=== PATIENT | male | born 1945 | race Caucasian/White ===

== ENCOUNTER 2025-10-02 12:00 | Inpatient (IN) | payer MEDICARE, BC, SELFPAY ==
--- OUTSIDE RECORDS SUMMARY | 2025-09-30 15:37 | XMS_ITS | Encounter Summary ---
Author Organization [facility] Address [address] [place] [phone] Phone Care Team Providers Care Race Steward Name Role Phone PaceObdulia rojo Minda CLINTON Primary Care Provider Reason for Visit * Reason Comments Paranoid Encounter Details Date Type Department Care Team (Late st Contact Info) Description 09/30/2025 3:37 PM EST - 09/30/2025 7:49 PM EST Emergency [facility] [address] [place] [address] Mayo Olvera DO [address] [place] [address] [email or web address] Discharge Disposition: Home or Self Care Social History Tobacco Use Types Packs/Day Years Used Date Smoking Tobacco: Never Smokeless Tobacco: Never Alcohol Use Standard Drinks/Week Comments Not Currently 1 (1 standard drink = 0.6 oz pur e alcohol) Education Answer Date Recorded Are you interested in more education? Not on kalyah e 02/27/2023 Are you concerned about learning? Not on file 02/27/2023 No 02/27/2023 No 02/27/2023 Digital Access Answer Date Recorded No 03/28/2023 No 03/28/2023 Reliable internet access at home? Not on file 03/28/2023 Device with a working camera? Not on file Intimate Partner Violence Answer Date R ecorded Are you denied basic needs s uch as food, clothing, or medical care? Deferred 09/30/2025 In the past 12 months have y ou been in a relationship with a person who hurts, threatens, or tries to control you? Deferred 09/30/2025 Are you denied basic needs s uch as food, clothing, or medical care? Deferred 09/30/2025 In the past 12 months have y ou been in a relationship with a person who hurts, threatens, or tries to control you? Deferred 09/30/2025 Sex and Gender Information Value Date Recorded Sex Assigned at Male 02/03/2018 6:47 AM EDT Legal Sex Male 10:06 PM EDT Gender Identity Male 02/03/2018 6:47 AM EDT Sexual Orientation Straight 02/03/2018 6: 47 AM EDT documented as of this encounter Last Filed Vital Signs Vital Sign Reading Time Taken Comments Blood Pressure 143/68 09/30/2025 3:55 PM EST Pulse 70 09/30/2025 7:27 PM EST Temperature 37.2 C (99 F) 09/30/2025 7:27 PM EST Respiratory Rate 18 09/30/2025 7:27 PM EST Oxygen Saturation 100% 09/30/2025 7:27 PM EST Inhaled Oxygen Concentration - - Weight 78.9 kg (174 lb) 09/30/2025 3:55 PM EST Height 175.9 cm (5' 9.25 ) 09/30/2025 3:55 PM ES T Body Mass Index 25.51 09/30/2025 3:55 PM EST documented in this encounter Functional Status * Calculated C-SSRS Risk Score (Lifetime/Recent) Answer Date of Assessment Author No Risk Indicated 09/30/2025 3:54 PM EST Maris Kasper RN * [place] Suicide Severity Rating Scale (Screener/Recent Self-Report) Question Answer Date of Assessment Author 1. Wish to be (Past 1 Month) No 025 3:54 PM EST Maris Kasper, LAURYN 2. Non-Specific Active Suici henry Thoughts (Past 1 Month) No 09/30/2025 3:54 PM EST Maris Kasper, LAURYN 6. Suicidal Behavior (Lifetime) No 3:54 PM EST Maris Kasper, LAURYN documented as of this encounter Discharge Instructions * Discharge Instructions* Mayo Olvera DO - 09/30/2025 7:25 PM EST As discussed during your visit with OFFSET ASSISTANT PRESS OPERATOR they have provided information regarding [facility] services that may be able to provide some assistance. They will also continue to follow-up with you over the next few days. I strongly consider you to discuss with your primary care team as well as your psychologist whether further treatment is appropriate. As always return for any further concerning symptoms particularly those of hallucinations or worsening paranoia. * Attachments The following attachments cannot be sent through Care Everywhere. * Depression: Treatment (Niuean) documented in this encounter Medications at Time of Discharge lisinopril (PRINIVIL,ZESTRIL ) 20 MG tablet Take 20 mg by mouth daily. metoprolol succinate (TOPROL-XL) 25 MG 24 hr tablet Take 1 tablet by mouth every morning. 09/12/2025 mirtazapine (REMERON) 15 MG tablet Take 15 mg by mouth nightly at bedtime. 08/19/2025 sertraline (ZOLOFT) 100 MG tablet Take 1 tablet by mouth every morning. 09/03/2025 amLODIPine (NORVASC) 5 MG tablet Take 1 tablet by mouth every morning. 12/07/2023 ascorbate calcium (VITAMIN C ORAL) Take by mouth. aspirin 81 MG EC tablet Take 81 mg by mouth daily. hydroCHLOROthiazi de (HYDRODIURIL) 25 MG tablet Take 25 mg by mouth daily. pravastatin (PRAVACHOL) 20 MG tablet Take 20 mg by mouth daily. pseudoephedrine (SUDAFED) 30 MG tablet Take 1 tablet (30 mg total) by mouth every 6 (six) hours as needed for congestion. 30 tablet 05/02/2021 sodium chloride (OCEAN) 0.65 % nasal spray 1 spray by Nasal route as needed for congestion. 15 mL 12 05/02/2021 UBIDECARENONE (COQ-10 ORAL) Take by mouth daily. zinc sulfate 50 mg zinc (220 mg) Tab Take 220 mg by mouth daily. documented as of this encounter Consult Notes * Paulina Weber - 09/30/2025 7:45 PM ESTAssociated Order(s): IP CONSULT TO OFFSET ASSISTANT PRESS OPERATOR SERVICE [facility] OFFSET ASSISTANT PRESS OPERATOR SERVICE INITIAL NOTE REQUESTING PHYSICIAN: Mayo Olvera DO PRIMARY CARE PHYSICIAN: Obdulia Pace DO Chief Complaint: Chief Complaint Complaint Comment Paranoid [[id number]] has a past medical history of Cataract, Colon polyp, Depressive disorder (2018), Diverticular disease, Hypercholesteremia, Hypertensive disorder, and Wears glasses. reports that he has never smoked. He has never used smokeless tobacco. He reports that he does not currently use alcohol after a past usage of about 1.0 standard drink of alcohol per week. He reportsthat he does not use drugs. is allergic to statin [atorvastatin]. Medical/Social Concerns: Does this client: Use any mobility devices such as wheelchair, walker, crutch, cane? If yes, describe: N/A Need assistance with feeding, dressing, bathing or other hygiene? If yes, describe N/A Require any durable medical equipment such as CPAP, oxygen, insulin pump, etc? If yes, describe N/A Have any communicable diseases such as MRSA, COVID, Flu, Hepatitis, etc? If yes, describe N/A Current Medications Medication Sig lisinopril (PRINIVIL,ZESTRIL) 20 MG tablet 20 mg, Oral, Daily metoprolol succinate (TOPROL-XL) 25 MG 24 hr tablet 1 tablet, Every morning mirtazapine (REMERON) 15 MG tablet 15 mg, Nightly sertraline (ZOLOFT) 100 MG tablet 1 tablet, Every morning amLODIPine (NORVASC) 5 MG tablet 1 tablet, Every morning Patient not taking: Reported on 09/30/2025 ascorbate calcium (VITAMIN C ORAL) Take by mouth. Patient not taking: Reported on 09/30/2025 aspirin 81 MG EC tablet 81 mg, Daily Patient not taking: Reported on 02/04/2024 hydroCHLOROthiazide (HYDRODIURIL) 25 MG tablet 25 mg, Daily Patient not taking: Reported on 09/30/2025 pravastatin (PRAVACHOL) 20 MG tablet 20 mg, Oral, Daily pseudoephedrine (SUDAFED) 30 MG tablet 30 mg, Oral, Every 6 hours PRN Patient not taking: Reported on 02/04/2024 sodium chloride (OCEAN) 0.65 % nasal spray 1 spray, Nasal, As needed Patient not taking: Reported on 09/30/2025 UBIDECARENONE (COQ-10 ORAL) Daily Patient not taking: Reported on 09/30/2025 zinc sulfate 50 mg zinc (220 mg) Tab 220 mg, Daily Patient not taking: Reported on 09/30/2025 Diagnoses: 300.02/F41.1 Generalized Anxiety Disorder 296.30/F33.9 Major Depressive Disorder, Recurrent Episode, Unspecified Referral Source: /Police Is the client on a Section 12? If yes, by whom: No Presenting Concerns: Geremias was BIBA to [facility] ED after his called [place] Police due to his paranoia and delusional thinking. At the time of the assessment ct reports vague SI with no plan or intent. He reports potential auditory hallucinations of voices that are non commanding in nature. Ct reports current anxiety and depression symptoms that include racing thoughts, low energy, and low motivation. He was calm and cooperative while speaking with tw. Precipitating Factors: Geremias reports that over the past 3 months he has experienced more frequent memory impairments that arecontributing to his current depression and anxiety. He states that his , Yuko, has taken over much of what he used to do in regards to monitoring their finances and responding to mail and bills due. He states he is frequently frustrated and agitated that he cannot perform the tasks he used to do regularly and has difficulties finding his words during conversations. He states that he has experienced fleeting SI in relation to his recent memory/cognitive decline. Geremias expresses his belief that due to paperwork not getting taken care of and deadlines being missed, police will shoot him and his . He repeatedly stated that his beliefs are silly and not rational but can't stop perseverating on these feelings. Geremias states that today he firmly believed that there was someone in his house and that if he used a specific bathroom the person would shoot him. He states he tried to not usethe bathroom because of this but eventually went in. He reports while he was in the bathroom he heard unfamiliar voices but could not decipher what they were saying. Geremias disclosed his beliefs to Yuko today which lead to her calling [place] Police. Adams reports that geremias has been struggling with his memory since July of 2025 which has been causing him to isolate more at home. She states that geremias believes that their health insurance will on November 02 2025 and that their current plan will not be rolled over. Despite their son reaching out to insurance and confirming that they will still have their same health insurance in the new year, ct is addiment they will still lose coverage. Yuko states this is a major source of distress for geremias as he expresses his anxiety about this daily. She reports that when police responded to thehome today they took possesion of the 3 fire arms that geremias owns. Social/family environment, day structure, supports: Geremias and his , Yuko, reside in their home in [place]. 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 Their son, Grant, is a colonel in in [employer] and resides in [place]. Ct speaks to his son regularly. He has a PCP and psychiatric prescriber he sees regularly. Trauma history and how it affects current presentation: None reported MH treatment: - Current providers: P[place]- [place] Kaci Pace [place] Prescriber- Dr. Hair Tierney ([facility] - Treatment history: None reported - Most Recent hospitalization: None reported Substance Use: - Current use: None reported - Historical use: None reported - Treatment history: None reported Mental Status Exam: - Age, race, gender, pronouns: Geremias is a 80 year old, , cisgender, Niuean-speaking male. - Appearance/Clothing/Hygiene: Appeared well groomed in appropriate attire - Build/Posture/Psychomotor: Sat upright in hx bed. Appeared to fidget with his fingers. - Mood/Behavior: Mood appeared nervous and dejected - Eye contact: Intermittent - Speech: Coherent/clear - Sleep/Appetite: Reports some sleep diminishments due to anxiety. Reports more frequent snacking. - Depression/Soco: Reports current depression with symptoms including low motivation/energy and isolation - Anxiety: Reports anxiety due to his recent memory impairments and difficulties performing his typical tasks such as tending to mail and balancing their checks. - Psychosis: Reports some auditory hallucinations of voices murmuring. - Thought process: Periodically illogical. Patterns of catastrophic thinking. - Future orientation: Shows future orientation related to his son and being with his - Judgement/Insight/Impulse Control: Geremias shows periodic impairments in insight and judgment as he does not feel that mental health support/services would be helpful and is not receptive to treatment recommendations. Impulse control appears adequate. Risk Assessment: - Suicidal ideation: Reports vague and fleeting SI with no plan or intent. - Violent/Homicidal Ideation: Denied - Self-Harm ideation: Denied - History of suicide attempts, self- harm, assaultive behaviors: Denied - Protective factors: Ct has strong social supports that include his , son, and brother as wellas service providers. He shows some future orientation related to his family. - Risk factors: Reports periodic SI with no plan/intent. Recent memory/cognitive decline. Periodic impairments in insight and judgement as he reports his beliefs that due to missed deadlines police will shoot him and his . However, ct acknowledges that these are not rational beliefs. He denies t reatment recommendations at this time. - Level of risk: Low Disposition: - Recommended level of care: Return to providers. Information on [facility] services to be emailed to his . - Justification: Ct declines any further treatment for his mental health. - Consulted with: Farida Sorensen, LADC-1, Dr. Mayo Olvera at [facility] - Post-intervention plan: OFFSET ASSISTANT PRESS OPERATOR follow up Paulina Weber, CORRINA Angeldarrel underwent a crisis evaluation with assessment, stabilization, and disposition planning. This included a comprehensive psychiatric history, mental status exam, diagnostic evaluation, assessment of substance use, formulation and treatment plan, that was as minimally restrictive as possible on 09/30/25. Date of :1945 Gender Identity:Male [address]: [address] [place] [address] Preferred Payor/Insurance: MEDICARE [facility] documented in this encounter ED Notes * Fina Santiago RN - 09/30/2025 7:48 PM EST ED Discharge Nursing Note Pt and verbalize understanding and agreement of discharge instructions, both pt and stateall questions have been answered, pt ambulates with steady gait * Maris Kasper RN - 09/30/2025 3:46 PM EST Pt arrives by ambulance after spouse concerned for recent behavior. +perseverating about toileting and the bathroom. Thoughts of bathroom blowing up. Also long periods of being withdrawn and staring out window. Speech clear. Well groomed. Engaging in conversation--however answers are indirect and without details. * Mayo Olvera, DO - 09/30/2025 3:34 PM EST Chief Complaint Chief Complaint Patient presents with Paranoid History of Present Illness The patient, Dimitry Yost,is a 80 y.o. male who presents for evaluation of Paranoid 80-year-old male. History is quite limited to obtain as the patient is quite tangential with his thought process and quite vague. Per EMS the patient has been having periods of being drawn, not engaging in conversation is much as usual, experiencing prolonged periods of stare at the window. Agus has began to experience paranoia. Concerned that the bathroom is going to explode. The was the one who reportedly called EMS. At this time patient states that he has been having difficulty states that he is on medication. He states that he is only allowed medication but is concerned that it may not be working. He states that he has not been opening his meal. He was initially concerned that bills were piling up and that they were going to come after him and harm him to obtain the back owed money. Patient denies any acute medical complaints denies any change in diet. Denies any recent infectious symptoms. Unless otherwise specified, I have reviewed and agree with the triage and nursing notes. ROS A ten point review of systems was negative except what was noted in the HPI. Review of Systems Past Medical History Past Medical History: Diagnosis Date Cataract Colon polyp Depressive disorder 2018 Diverticular disease Hypercholesteremia Hypertensive disorder Wears glasses Past Surgical History Past Surgical History: Procedure Laterality Date CATARACT EXTRACTION, BILATERAL 2018 COLONOSCOPY COLONOSCOPY N/A 02/05/2024 Performed by Bijan Mcconnell MD at [facility] ENDOSCOPY COLONOSCOPY N/A 12/24/2018 Performed by Bijan Mcconnell MD at [facility] ENDOSCOPY COLONOSCOPY W/ POLYPECTOMY 2012 [place] EXTRACTION FULL BONY IMPACTED Right 05/02/2021 Performed by Taurus Galicia DDS, MD at [facility] OR EYE SURGERY MENISCECTOMY OPEN BIOPSY DEEP BONE Right 05/02/2021 Performed by Taurus Galicia DDS, MD at [facility] OR STAPEDECTOMY Left Home Medications Prior to Admission medications Medication Sig lisinopril (PRINIVIL,ZESTRIL) 20 MG tablet 20 mg, Oral, Daily metoprolol succinate (TOPROL-XL) 25 MG 24 hr tablet 1 tablet, Every morning mirtazapine (REMERON) 15 MG tablet 15 mg, Nightly sertraline (ZOLOFT) 100 MG tablet 1 tablet, Every morning amLODIPine (NORVASC) 5 MG tablet 1 tablet, Every morning Patient not taking: Reported on 09/30/2025 ascorbate calcium (VITAMIN C ORAL) Take by mouth. Patient not taking: Reported on 09/30/2025 aspirin 81 MG EC tablet 81 mg, Daily Patient not taking: Reported on 02/04/2024 hydroCHLOROthiazide (HYDRODIURIL) 25 MG tablet 25 mg, Daily Patient not taking: Reported on 09/30/2025 pravastatin (PRAVACHOL) 20 MG tablet 20 mg, Oral, Daily pseudoephedrine (SUDAFED) 30 MG tablet 30 mg, Oral, Every 6 hours PRN Patient not taking: Reported on 02/04/2024 sodium chloride (OCEAN) 0.65 % nasal spray 1 spray, Nasal, As needed Patient not taking: Reported on 09/30/2025 UBIDECARENONE (COQ-10 ORAL) Daily Patient not taking: Reported on 09/30/2025 zinc sulfate 50 mg zinc (220 mg) Tab 220 mg, Daily Patient not taking: Reported on 09/30/2025 Allergies Allergies Allergen Reactions Statin [Atorvastatin] Muscle weakness Social and Family History Social History Tobacco Use Smoking status: Never Smokeless tobacco: Never Substance Use Topics Alcohol use: Not Currently Alcohol/week: 1.0 standard drink of alcohol Types: 1 Standard drinks or equivalent per week Social History Substance and Sexual Activity Drug Use No No family history on file. Physical Exam Vital Signs: ED Triage Vitals Encounter Vitals Group BP Girls Systolic BP Percentile Girls Diastolic BP Percentile Boys Systolic BP Percentile Boys Diastolic BP Percentile Pulse Resp Temp Temp src SpO2 Weight Height Head Circumference Peak Flow Pain Score Pain Loc Pain Education Exclude from Growth Chart Physical Exam General: Well Nourished, Well Developed HENT: Normocephalic, Atraumatic Eyes: PERRL, EOM Intact Cardiovascular: Normal Rate, Normal Rhythm, Good Distal Perfusion Pulmonary: Normal Effort, Breath Sounds Normal Abdominal: Soft, Non-tender, Non-distended MSK: Normal ROM Neurologic Screening Exam: Grossly non-focal. Vision is grossly intact to both eyes, EOM grossly intact, PERRL. Hearing is grossly intact to both ears. No olfactory deficits are noted. No obvious facial sensory deficits are noted. Motor function of the face is equal and symmetric. Shoulder shrug isintact. Tongue is in the midline. Psych: Alert, Awake, circumferentially answering questions, vague Laboratory Testing No results found for this visit on 09/30/25. Radiology Testing No orders to display MDM MDM Patient presents as above. At this time patient appears in no acute distress. Vital signs are without significant abnormality. He endorses no acute medical complaints. Patient endorsing paranoia and seemingly symptoms of depression. Do see on medication list that he is manage on mirtazapine and Zoloft. At this time we will do not see medical etiology for psychiatric concerns. Discussed obtaining screen laboratory studies however patient is concerned regarding financial concerns. Patient had labs he says within the last few weeks by his primary care doctor will attempt to access these as he isnot consenting to lab work done today which [place] is likely of low yield. Feel as though more info rmation will be obtained when his Yuko is present. Per EMS she was and route. ED Course as of 09/30/251925 Sat Sep 30, 2025 164 Case was discussed in depth with OFFSET ASSISTANT PRESS OPERATOR his spouse. She grazes multiple episodes of delusional behavior assuming that multiple objects are broken. States that he has been having visual hallucinations. Had a similar episode 7 years ago following cataract surgery. She reports a recent OMFS surgery.At this time after discussion agreed on OFFSET ASSISTANT PRESS OPERATOR consultation [JS] 1923 Patient was seen and evaluated by OFFSET ASSISTANT PRESS OPERATOR. At this time they are agreeable that the patient is showing concerning findings for depression as well as possibility of dementia. Patient was offered Geripsychiatric services however has declined them. OFFSET ASSISTANT PRESS OPERATOR feels and I am agreeable that the patient does not meet criteria for section 12. They will connect the patient to [facility] services. They will continue to follow-up over the next 3 days. Patient to be discharged. [JS] ED Course User Index [JS] Mayo Olvera DO Clinical Impressions as of 09/30/251925 Paranoia Depression, unspecified depression type Clinical Impression Diagnosis Description Comment Final diagnoses Paranoia Paranoia -- Depression, unspecified depression type Depression, unspecified depression type -- Disposition: Home Mayo Olvera DO 09/30/251925 documented in this encounter Plan of Treatment Upcoming Encounters Date Type Department Care Team (Late st Contact Info) Description 10/13/2025 7:15 AM EST Office Visit [facility] [address] Floor, [address] [place] [address] Allan Dowell DO [address] [place] [id number] [email or web address] documented as of this encounter Visit Diagnoses Diagnosis Paranoia- Primary Delusional disorder Depression, unspecified depression type documented in this encounter Care Teams Race Steward Relationship Specialty Start Date End Date Obdulia Pace DO [address] [place] [address] [place] [phone] PCP - General Family Medicine 09/30/25 documented as of this encounter Additional Source Comments The information contained in this document represents components of the legal health record. It is not the complete legal health record.[facility]
--- NOTE | ~2025-10-02 | XR_ITS ---
EXAMINATION: XR CHEST CLINICAL INFORMATION: pre MRI COMPARISON: None available. TECHNIQUE: PA view of the chest was obtained. FINDINGS: No metallic foreign body. Chronic interstitial lung disease. Vertically oriented and parapelvic to the spine Opacity. Cardiomediastinal silhouette size is normal. Multilevel spondylosis. XR/XR chest 1V IMPRESSION: No metallic foreign body. EXAMINATION: XR ABDOMEN KUB CLINICAL INDICATION: pre MRI COMPARISON: None available. TECHNIQUE: AP view of the abdomen. FINDINGS: No metallic foreign body. No intestinal bowel obstruction. Multilevel thoracolumbar spondylosis. S-shaped curvature with a levoconvex curvature in the lower lumbar spine. Degenerative changes in the coxofemoral joints. IMPRESSION: No metallic foreign body. Electronically signed by: Patrick Fulton MD 10/10/2025 01:55 PM [facility]
--- NOTE | ~2025-10-02 | XR_ITS ---
EXAMINATION: XR CHEST CLINICAL INFORMATION: pre MRI COMPARISON: None available. TECHNIQUE: PA view of the chest was obtained. FINDINGS: No metallic foreign body. Chronic interstitial lung disease. Vertically oriented and parapelvic to the spine Opacity. Cardiomediastinal silhouette size is normal. Multilevel spondylosis. XR/XR abdomen 1V IMPRESSION: No metallic foreign body. EXAMINATION: XR ABDOMEN KUB CLINICAL INDICATION: pre MRI COMPARISON: None available. TECHNIQUE: AP view of the abdomen. FINDINGS: No metallic foreign body. No intestinal bowel obstruction. Multilevel thoracolumbar spondylosis. S-shaped curvature with a levoconvex curvature in the lower lumbar spine. Degenerative changes in the coxofemoral joints. IMPRESSION: No metallic foreign body. Electronically signed by: Patrick Fulton MD 10/10/2025 01:55 PM [facility]
--- NOTE | ~2025-10-02 | CT_ITS ---
EXAMINATION: CT HEAD WITHOUT CONTRAST CLINICAL INFORMATION: Mental status changes. COMPARISON: None available. TECHNIQUE: Contiguous axial imaging was performed from the skull base to vertex without intravenous administration of contrast. This CT examination was performed using dose optimization techniques as appropriate, variously including the following: *Automated exposure control *Adjustment of mA and/or kV according to patient size (this includes techniques or standardized protocols for targeted exams where dose is matched to indication/reason for exam; i.e. extremities or head) *Use of iterative reconstruction technique FINDINGS: There is no evidence of intracranial hemorrhage or extra-axial fluid collection. There is no mass effect, or edema. No CT evidence of acute territorial infarct. Ventricles, sulci, and cisterns are normal in size and configuration for patient age. No hydrocephalus. No midline shift. Negative hyperdense MCA sign. Negative insular ribbon sign. Patchy periventricular and deep white matter hypoattenuation is consistent with mild to moderate small vessel ischemic changes. Normal pituitary. Mild atheromatous calcification of the bilateral carotid siphons and V4 segments vertebral arteries bilaterally. Globes and orbital contents image normally. There are bilateral lens replacements. No extracranial soft tissue abnormalities. Likely old traumatic changes to the posteroinferior right maxillary sinus. There is partial opacification of the right maxillary sinus with a small air-fluid level present. The mastoid air cells, and tympanic cavities are normally aerated. No suspicious bony abnormalities. There are no acute fractures evident. CT/CT head/brain wo IV con IMPRESSION: 1. No acute intracranial abnormality. 2. Partial opacification of the right maxillary sinus with likely old post traumatic changes to the posteroinferior sinus haider. Electronically signed by: Neptali Purcell MD 10/02/2025 02:05 PM [facility]
--- NOTE | ~2025-10-02 | MR_ITS ---
MR BRAIN WITHOUT CONTRAST, WITH NEURO-QUANTITATIVE HISTORY: 80-year-old male. Progressive decrease in functioning dependently. TECHNIQUE: MRI of the brain was performed without contrast using standard sequences in multiple planes. Examination performed on a 1.5 Deb Siemens high-field unit. Neuro-quantitative analysis was also performed utilizing a separate workstation. COMPARISON: No prior MRI. CT head dated 10/02/2025. FINDINGS: There is no diffusion restriction. There is no intracranial hemorrhage, acute infarction, mass effect, or edema. No extra-axial fluid collection. Ventricles, sulci, and cisterns are diffusely somewhat prominent, in keeping with mildly age advanced cerebral and cerebellar volume loss. See below. No shift of midline. 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 No abnormal hemosiderin deposition is identified. There are a scattered punctate and minimally confluent foci of white matter T2 hyperintensity in the periventricular, subcortical, and hemispheric deep white matter, and central navdeep. These foci are nonspecific but statistically relate to small vessel ischemic changes. There are old tiny lacunar type infarcts in the bilateral subinsular regions and anterior gangliocapsular regions. Midline structures appear normally formed. 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 The pituitary gland appears normal. Posterior fossa structures appear normal. Cerebellar tonsils are appropriately located. Major flow voids are preserved within the skull base. The globes and orbital contents demonstrate bilateral lens replacements. Neuro-quantitative Analysis: The hippocampi volume is 2% of the normative age-matched percentile. The Hippocampal Occupancy Score Is 2. The entorhinal cortex volume Is 85% of the normative age-matched percentile. The temporal cortex is 7% of the normative age-matched percentile. The parietal cortex is 79% of the normative age-matched percentile. The frontal cortex is 32% of the normative age-matched percentile. The occipital cortex is 41% of the normative age matched percentile. Please refer to the full neuro-quantitative analysis worksheets for further details. Paranasal sinuses demonstrate moderate mucosal thickening with a small amount of fluid in the right maxillary sinus, and mild mucosal thickening throughout the anterior ethmoid sinuses. Remainder of the paranasal sinuses are normally pneumatized. The mastoids and tympanic cavities are normally aerated. Extracranial soft tissues demonstrate no abnormalities. No suspicious bone marrow changes are evident. Atlantoaxial joint demonstrates mild to moderate degenerative changes. MR/MR brain wo con w neuroquant IMPRESSION: 1. No evidence of intracranial hemorrhage, acute infarction, mass effect, or edema. 2. Mild to moderate white matter changes of small vessel ischemia. 3. 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 4. Moderate right maxillary sinus disease. 5. Neuro-quantitative analysis as described above. Please refer to the full neuro-quantitative analysis worksheets attached to this examination for further details. Electronically signed by: Neptali Purcell MD 10/11/2025 03:24 PM [facility]
[2025-10-02 12:14] VITALS: BP 142/76; PULSE 78; O2SAT 97; BMI 29.8
[2025-10-02 12:45] VITALS: BP 150/67; PULSE 80; RESP 14; TEMP 36.8; O2SAT 98
--- NOTE | 2025-10-02 12:49 | PC.NURSE ---
Dimitry presents to the emergency department today from home on a section 12 for reported delusions that the gill net stringer are coming to shoot him, he is having difficulty articulating thoughts, he is not sleeping, he is restless and is reporting increased depression. According to the patient he has been increasingly forgetful and has been having trouble doing his day to day activities. He reports difficulty opening items, sleeping and completing daily tasks like shaving. he endorses increased depression which has been contributing to these difficulties. Pt endorses not wanting to live due to the stuff going on in life . Pt reports you wouldn't want to live if you experienced what I am . Pt denies any plans to harm himself. Pt is calm and cooperative, speech is slow but clear, although patient does seem to have a hard time articulating what he would like to say. Pt is alert and oriented to self, location, situation and date
[2025-10-02 12:56] LABS: MANUAL DIFF FLAG NO
--- NOTE | 2025-10-02 12:58 | MHC.CARE ---
Call from [facility] Clinician, Cami Hauser, patient has been evaluated in the community with disposition for inpatient level of care.
[2025-10-02 12:59] LABS: Hematocrit 36.7 % (42.0-52.0); Hemoglobin 12.6 g/dl (14.0-18.0); Imm Gran Abs Auto 0.17 X10*3/uL (0.00-0.03); Imm Gran Pct Auto 2.2 % (0.0-0.4); Lymphocytes Absolute Auto 2.0 X10*3/uL (1.2-4.9); Mean Corpuscular HGB Conc 34.3 g/dl (31.0-36.0); Mean Corpuscular Hemoglobin 33.0 pg (27.0-33.0); Mean Corpuscular Volume 96.1 fL (80.0-98.0); NRBC Abs Auto 0.000 X10*3/uL (0.0-0.012); NRBC Pct Auto 0.0 /100WBC (0.0-0.2); Platelet Count 195 X10*3/uL (160-400); Red Blood Count 3.82 X10*6/uL (4.60-5.80); White Blood Count 7.8 X10*3/uL (4.8-10.8)
--- NOTE | 2025-10-02 13:41 | ED_ITS ---
HPI - Psych General Chief Complaint: Psychiatric Symptoms Stated Complaint: SEC 12, SI, CALM/COOP Time Seen by Provider: 10/02/25 13:26 Source: patient and EMS Mode of arrival: EMS Limitations: other (Poor historian) History of Present Illness ED Provider: LACIE POLANCO Narrative: 80-year-old male with past medical history of hypertension, sleep disturbances, depression, BPH who lives at home with his . He comes in on a section 12 after what he reports as 6 months of escalating symptoms of depression, poor sleep, racing thoughts, and unsure if things are really happening. He states he does not want to live like this anymore. He does not have any formal diagnosis of dementia. He is unsure what medications he is on. He states he has never gone to an inpatient psychiatric unit for depression. He states a psychiatric social worker supervisor got involved and all these things happened and now he is here but he is not sure why. He did report that he thought the police were coming to shoot him. MD complaint: feels depressed Onset (ago): month(s) Duration: getting worse History of same: Yes Relieving factors: none Exacerbating factors: other Context: significant life stressor Associated psychiatric symptoms: depression and suicidal ideation Associated symptoms: denies other symptoms Treatments prior to arrival: placed on mental health hold If self harm: admits thoughts of self harm Related Data Home Medications ?Medication ?Instructions ?Recorded ?Confirmed cyanocobalamin (vitamin B-12) 1,000 mcg sublingual TITUS LY 10/02/25 10/02/25 1,000 mcg sublingual tablet lisinopril 20 mg tablet 20 mg PO DAILY 10/02/2511/26 metoprolol succinate 25 mg 25 mg PO DAILY 10/02/2511/26 tablet,extended release 24 hr mirtazapine 15 mg tablet 15 mg PO BEDTIME 10/02/25 sertraline 100 mg tablet 100 mg PO DAILY 10/02/2511/26 Allergies Allergy/AdvReac Type Severity Reaction Status Date / Time No Known Allergies Allergy Verified 10/02/25 12:16 Review of Systems 2 Review of Systems: Constitutional : No Fever, No Chills ENT/Mouth : No Ear Pain, No Nasal Congestion, No sore throat Eyes: No Eye Pain, No Swelling, No Redness Cardiovascular : No Chest Pain, No SOB Respiratory : No Cough, No Sputum, No Dyspnea Gastrointestinal : No Nausea, No Vomiting, No Diarrhea, No Hematochezia, No Melena Genitourinary : No Dysuria, No Urinary Frequency, No Hematuria Musculoskeletal : No Myalgias Skin : No Skin Lesions, No rash Neuro : No Weakness, No Numbness, No Paresthesias, No Dizziness, No Headache Psych : positive Anxiety, positive Depression, positive SI no HI All other systems reviewed and are negative [facility] Past Medical History Attestation statement: The following information was validated with the patient. Source: old records reviewed Medical History (Updated 10/04/25 @ 14:33 by Monalisa Owens DNP) Depression Insomnia HTN (hypertension) BPH (benign prostatic hyperplasia) Social History Social History (Updated 10/02/25 @ 13:46 by Mery Olguin DO) Household Members: Spouse Housing: House Do you presently have visiting nurse or other home services: No Alcohol intake: former Patient Tobacco Use Status: Never used Tobacco Smoked in Last 30 Days: No e-Cigarette/Vaping Use: Never Used Use of substances other than those prescribed or required for medical reasons: No Currently Displaying Signs/Symptoms of Drug Intoxication Withdrawal: No Have you been hit, kicked, punched, or otherwise hurt by someone within the past year? If so, by whom?: No Do you feel safe in your current relationship?: Yes Is there a partner from a previous relationship who is making you feel unsafe now?: No Are you made to feel afraid or neglected: No Advance Directives: Yes Advance Directives Information Provided: Yes Advance Directives on File: No Do you have thoughts of harming others: None Do you have a plan to hurt others: No Plan Recently lost weight without trying: Unsure How much weight loss: Unsure Eating poorly because of decreased appetite: No Nutrition screen score: 4 Nutrition Risks: No Nutritional Risk Poor oral hygiene: No service: Yes Sexual orientation: Straight/Heterosexual Physical Exam 2 Vital Signs: Vital Signs: Last Vital Signs Temp 99.3 F 10/04/25 20:00 Pulse 73 10/04/25 20:00 Resp 18 10/04/25 20:00 BP 128/66 10/04/25 20:00 Pulse Ox 96 10/04/25 08:25 O2 Del Method Room Air 10/04/25 20:00 BMI result Body Mass Index 29.8 Appearance: Alert. Oriented X3. No acute distress. He has very poor eye contact, he is withdrawn, he is alert and oriented and knows where he is but he has a difficult time remembering what brought him here and he can not name any of his long-term medications Eyes: Pupils equal, round and reactive to light. ENT: Pharynx normal. Neck: Normal inspection. Neck supple. CVS: Normal heart rate and rhythm. Pulses normal. Respiratory: No respiratory distress. Breath sounds normal. Abdomen: Soft and nontender. Skin: Skin warm and dry. Normal skin color. Normal skin turgor. Extremities: No lower extremity edema. No calf ttp Neuro: Oriented X 3. No motor deficit. No sensory deficit. CN2-12 intact Course Course Course Narrative: 2:11 PM 10/02/2025 (LACIE CLINTON): I did sign this out to Macy CLINTON currently just pending a urine otherwise labs and CT head show no acute cause of his symptoms Reevaluation(s) Reevaluation #1: 3:43 PM 10/02/2025 (Macy Shepard PA-C): Still awaiting urine, EKG revealing normal sinus rhythm at a ventricular rate of 66 beats per minute, ID interval 150, QT QTC 415/434, no STEMI. Awaiting urine 5:06 PM 10/02/2025 (Macy Shepard PA-C): Still awaiting UA however patient has been assessed in the community by [facility] with disposition for inpatient level of care Reevaluation #2: 10/03/25 1500 admitted inpatient end physician observation Medications Administered Generic Name Dose Route Start Last Admin Trade Name Chelsea PRN Reason Stop Dose Admin Cyanocobalamin 1,000 mcg 10/03/25 09:00 10/04/25 08:27 Cyanocobalamin (Vitamin B-12) 1,000 Mcg Tablet PO 1,000 mcg DAILY LIZ Administration Lisinopril 20 mg 10/03/25 09:00 10/04/25 08:27 Lisinopril 20 Mg Tablet PO 20 mg DAILY LIZ Administration Protocol Metoprolol Succinate 25 mg 10/03/25 09:00 10/04/25 08:28 Metoprolol Succinate Er 25 Mg Tab.Er.24h PO 25 mg DAILY LIZ Administration Protocol Mirtazapine 15 mg 10/02/25 21:45 10/04/25 20:59 Mirtazapine 15 Mg Tablet PO 15 mg BEDTIME LIZ Administration Sertraline HCl 100 mg 10/03/25 09:00 10/04/25 08:28 Sertraline Hcl 100 Mg Tablet PO 100 mg DAILY LIZ Administration Medical Decision Making Medical Decision Making [facility] Narrative: 80-year-old male with past medical history of hypertension, sleep disturbances, depression, BPH who lives at home with his now here with delusions that he is going to be shot by the police, depression, SI. He denies any inpatient psychiatric admissions in the past. Given his age and no formal diagnosis I am going to obtain labs, thyroid panel, UA, CT head for any acute or subacute stroke. Once he is medically cleared we will involve the care team. There is some concern that this could be early cognitive impairment with delusions Differential Diagnosis Differential Diagnoses: The differential diagnosis associated with the presentation includes Depression, SI, electrolyte abnormality, urinary pathology, intracranial mass, prior stroke Admission/Observation Consideration of admission/observation: Escalation of care including admission/observation considered Physician observation started at 13:48 pending medical workup and care team assessment Consult Healthcare Provider Management of the patient was discussed with: Behavioral Health Provider Lab Data [facility] Lab Attestation statement: I reviewed the patient's lab results. 10/02/25 12:41 10/02/25 12:41 Labs: Lab Results 10/02/25 10/02/25 Range/Units 12:41 16:42 WBC 7.8 (4.8-10.8) X10*3/uL RBC 3.82 L (4.60-5.80) X10*6/uL Hgb 12.6 L (14.0-18.0) g/dl Hct 36.7 L (42.0-52.0) % MCV 96.1 (80.0-98.0) fL MCH 33.0 (27.0-33.0) pg MCHC 34.3 (31.0-36.0) g/dl RDW 11.8 (11.0-16.0) % Plt Count 195 (160-400) X10*3/uL MPV 8.8 L (9.4-12.4) fL Immature Gran % (Auto) 2.2 H (0.0-0.4) % Neut % (Auto) 56.4 (45-73) % Lymph % (Auto) 25.1 (20-40) % [place] % (Auto) 13.8 H (2-11) % Eos % (Auto) 2.1 (0-4) % Baso % (Auto) 0.4 (0-2) % Lymph # (Auto) 2.0 (1.2-4.9) X10*3/uL [place] # (Auto) 1.1 (0.1-1.2) X10*3/uL Eos # (Auto) 0.2 (0.0-0.4) X10*3/uL Baso # (Auto) 0.0 (0.0-0.2) X10*3/uL Abs Immat Gran (auto) 0.17 H (0.00-0.03) X10*3/uL Absolute Neuts (auto) 4.4 (2.0-8.3) x10*3/uL Absolute Nucleated RBC 0.000 (0.0-0.012) X10*3/uL Nucleated RBC % (auto) 0.0 (0.0-0.2) /100WBC Sodium 142 (135-145) mmol/L Potassium 4.0 (3.3-5.1) mmol/L Chloride 110 H (96-108) mmol/L Carbon Dioxide 26 (22-29) mmol/L Anion Gap 10 L (12-20) BUN 26 H (9-16) mg/dL Creatinine 0.71 (0.5-1.4) mg/dL Estim Creat Clear Calc 89.9 Estimated GFR > 60 Random Glucose 110 (60-115) mg/dL Calcium 8.8 (8.4-10.2) mg/dL Total Bilirubin 0.4 (0.0-1.0) mg/dL AST 37 (5-37) U/L ALT 28 (0-40) U/L Alkaline Phosphatase 77 (39-117) U/L Total Protein 6.6 (6.5-8.0) g/dL Albumin 3.8 (3.5-5.0) g/dL TSH 0.80 (0.32-4.0) uIU/mL Urine Color Yellow Urine Appearance Clear Urine pH 5.5 (5.0-9.0) Ur Specific Neal 1.025 (1.005-1.025) Urine Protein Negative (Neg-Trace) mg/dL Urine Glucose (UA) Negative (Negative) mg/dL Urine Ketones Trace (Negative) mg/dL Urine Blood Negative (Negative) Urine Nitrite Negative (Negative) Ur Leukocyte Esterase Negative (Negative) Urine Opiates Screen Not Detected (Not Detect) Ur Buprenorphine Scrn Not Detected (Not Detect) ng/mL Ur Oxycodone Screen Not Detected (Not Detect) ng/mL Urine Methadone Screen Not Detected (Not Detect) ng/mL Urine Fentanyl Screen Not Detected (Not Detect) Ur Barbiturates Screen Not Detected (Not Detect) Ur Phencyclidine Scrn Not Detected (Not Detect) Ur Amphetamines Screen Not Detected (Not Detect) U Benzodiazepines Scrn Not Detected (Not Detect) Urine Cocaine Screen Not Detected (Not Detect) U Marijuana (THC) Screen Not Detected (Not Detect) Ethyl Alcohol < 10 mg/dL Independent Interpretation I performed an independent interpretation of an: EKG and CT Scan (No acute mass) Interpretation: Rate: Rhythm: [place]: Normal P waves. Normal CHERISE. Normal QRS complex. ST T wave : qTC: prior studies: The study has been interpreted contemporaneously by me. . Radiology Impression Discussion of test interpretation with radiology: I have reviewed the radiologist's reading. Independent Historian Clinical information obtained from an independent historian. History obtained from or confirmed by: EMS External Record Review External record reviewed: Outpatient record Discharge Plan Discharge Clinical Impression: Depression Qualifiers: Depression Type: unspecified Qualified Code(s): F32.A - Depression, unspecified Patient Disposition: Admitted As Inpatient Interventions: Admission Worksheet (ED) Last Done: 10/03/25 15:47 Discharge Date/Time: 10/03/25 16:26
--- NOTE | 2025-10-02 13:46 | ECG_ITS ---
Test Reason : CHECK FOR QTC Blood Pressure : */* mmHG Vent. Rate : 66 BPM Atrial Rate : 66 BPM P-R Int : 150 ms QRS Dur : 86 ms QT Int : 414 ms P-R-T Axes : 36 57 36 degrees QTcB Int : 434 ms Normal sinus rhythm Normal ECG No previous ECGs available Referred By: Mery Olguin Electronically Signed By: BRETT KANG
[2025-10-02 13:55] LABS: Alanine Aminotransferase 28 U/L (0-40); Albumin Level 3.8 g/dL (3.5-5.0); Alkaline Phosphatase 77 U/L (39-117); Anion Gap 10 (12-20); Aspartate Amino Transferase 37 U/L (5-37); Blood Urea Nitrogen 26 mg/dL (9-16); Calcium 8.8 mg/dL (8.4-10.2); Carbon Dioxide 26 mmol/L (22-29); Chloride 110 mmol/L (96-108); Creatinine Clr Calc Pharmacy 89.9; Estimated Glomerular Filt Rate > 60; Potassium 4.0 mmol/L (3.3-5.1); Sodium 142 mmol/L (135-145); Total Protein 6.6 g/dL (6.5-8.0)
[2025-10-02 16:34] VITALS: BP 148/72; PULSE 68; RESP 16; TEMP 36.3; O2SAT 98
[2025-10-02 17:06] LABS: Appearance Urine Clear; Glucose Urine UA Negative (Negative); PH 5.5 (5.0-9.0); Specific Gravity - Urine 1.025 (1.005-1.025)
[2025-10-02 17:18] LABS: Cannabinoid Screen Urine Not Detected (Not Detect)
--- OUTSIDE RECORDS SUMMARY | 2025-10-02 17:45 | XMS_ITS | Data Portability ---
Author Organization [place] - [facility], Allergy Address [address] [place] [id number] Care Team Providers Care Bridge Instructor Name Role Phone ROMINA ESTRADA Primary Care Provider YANI CALIX Referring Provider Assessment No assessment recorded. Plan of Treatment Reminders Order Date Submit Date Provider Last Modified By Organization Details Last Modified Time Details Appointments None record ed. Lab None record ed. Referral None record ed. Procedures None record ed. Surgeries None record ed. Imaging None record ed. Medication Orders None record ed. Patient TargetsNo targets recorded. Patient InstructionsNo instructions recorded. Reason for Referral None Reported. Results Created Date Observation Date Name Description Value Unit Range Abnormal Flag Note LastModifiedBy Organization Detail LastModifiedTime 05/24/20 25 04/22/2025 CT, face, w/o contr ast No observ ation record ed. [email or web address] Available 2024 15:42:25 08/22/20 25 04/22/2025 CT, face, w/o contr ast No observ ation record ed. [email or web address] Not Available 2024 14:19:58 Result Notes None recorded. Problems Name Problem SNOMED Code Status Onset Date Resolution Date Notes Provider Name and Address Organization Details Recorded Time Chronic maxillary sinusitis 30231491 Active 025 CARO TERRELL MD [address] [place] [address], [phone] , [place] - [facility] 5 16:30:35 Problem Notes None recorded. Procedures Surgical History Date Name Laterality Status Provider Name and Address Organization Details Recorded Time 5 JMSNasal/Sinus Endoscopy completed CARO TERRELL MD [address] [place] [address], [phone], [place] - [facility] 05/21/2025 16:30:24 Imaging Results None recorded. Procedure Notes None recorded. Medical Equipment None Reported. Medications Name Sig Start Date Stop Date Status Note LastModified by Organization Details LastModified Time pravastatin 40 mg tablet TAKE 1 TABLET BY MOUTH EVERY DAY active Not Available Not Available No t Available lisinopril 20 mg tablet TAKE 1 TABLET BY MOUTH EVERY DAY active Not Available Not Available No t Available amlodipine 5 mg tablet TAKE 1 TABLET BY MOUTH EVERY DAY active Not Available Not Available No t Available lisinopril 30 mg tablet TAKE 1 TABLET BY MOUTH DAILY active Not Available Not Available No t Available hydrochlorothiaz lalo 25 mg tablet TAKE 1 TABLET BY MOUTH EVERY DAY active Not Available Not Available No t Available lisinopril 40 mg tablet TAKE 1 TABLET BY MOUTH EVERY DAY active Not Available Not Available No t Available Vitals Date Recorded Body height Body mass index (BMI) Body weight Provider Name and Address Organization Details Last Updated DateTime 05/18/2025 177.8 cm 28 kg/m2 78668.51 g Samanta Almonte [place] - [facility] 05/18/2025 11:36:15 Social History None recorded. Functional Status None recorded. Mental Status None recorded. Family History Nothing Reported. Medical History Condition Response Arthritis Y Hypertension Y Past Encounters Encounter ID Performer Location Encounter Start Date Encounter Closed Date Diagnosis/Indication Diagnosis SNOMED-CT Code Diagnosis ICD10 Code Diagnosis IMO Codes Diagnosis Note [id number] CARO TERRELL MD [facility] on [address] [place] [address] 05/18/2025 11:00:19 05/18/2025 14:43:34 Chronic maxillary sinusitis 09747252 J32.0 [id number] 79-year-ol d male presents today for evaluation . He had a right maxillary wisdom tooth associated with dentigerou s cyst excised. There was concern for fistula, but symptoms improved until this past December when he had a sinus infection and then began having some drainage. He had a CT scan in April which I reviewed with the patient showing postsurgic al changes with extraction of right maxillary molar with defects in the inferior lateral and inferior medial maxillary antrum wall, moderate to severe mucosal thickening , new partial opacificat ion of right frontal sinus and right frontoethm oidal junction.H sujata reports he started using the NeilMed sinus rinse and feels much improved. On endoscopy today, I do see a small amount of mucus at the right middle meatus, no polyps. 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 I counseled him that to increase the likelihood of successful oroantral fistula collection , I would recommend right maxillary antrostomy . He feels he is doing very well at this point and declines any surgical interventi on, either of the oroantral fistula or of the sinus. He will call if that changes. Health Concerns Section Related Observation LastModified by Organization Detai ls LastModified Time None Recorded Concern Status LastModified by Organization Details LastModified Time None Recorded Advance Directives Directive None Recorded Payers Insurance Date Sequence Insurance Name Policy Number Policy Barger Covered Member ID Barger Member ID Guarantor Name 05/18/2025 1 [place] Dimitry Yost [id number] Dimitry Ysot 05/18/2025 2 [place] [id number] Dimitry Yost [id number] Dimitry Yost 05/24/2025 2 [place] [id number] Dimitry Yost [id number] Dimitry Yost Notes Date Note Type Note Provider Name and Address Organization Details Recorded Time 05/18/2025 text/html 79 yo M presents for evaluationFebruary sinus infectionblew nose hardno sinus issue before extractiontooth extraction 2022 with dentigerous cyst no pain, no drainagesince the CT, has been using the sinus rinse, neilmed has helped out quite a bit was not on abx CARO ETRRELL MD [address] [place] [address], [place], [phone], [place] - [facility] 05/21/2025 16:35:46
--- OUTSIDE RECORDS SUMMARY | 2025-10-02 17:45 | XMS_ITS | Encounter Summary ---
Author Organization [facility] Address [address] [facility] [address] [place] [address] Phone Care Team Providers Care Wire Drawing Die Maker Name Role Phone William Salcedo MD Primary Care Provider Obdulia Pace DO Primary Care Provider + [phone] Obdulia Pace DO Primary Care Provider + [phone] Reason for Referral * MRI/CAT Scan - Closed Specialty Diagnoses / Procedures Referred By Sujata hummel Referred To Contact Radiology Diagnoses Maxillary sinus mass Procedures CT Face Taurus Galicia DDS Phone: tel: fax: mailto:[email or web address] Referral ID Status Reason Start Date Expiration Date Visits Re quested Visits Authorized [id number] Closed 02/05/2021 02/05/2022 1 1 Encounter Details Date Type Department Care Team (Late st Contact Info) Description 02/05/2021 Transcribe Orders Virtual Department [address] [place] [address] Taurus Galicia DDS [address] [place] [address] [email or web address] Maxillary sinus mass (Primary Dx) Social History Tobacco Use Types Packs/Day Years Used Date Smoking Tobacco: Never Smokeless Tobacco: Never Alcohol Use Standard Drinks/Week Comments Yes 1 (1 standard drink = 0.6 oz pur e alcohol) Sex and Gender Information Value Date Recorded Sex Assigned at Male 02/03/2018 6:47 AM EDT Legal Sex Male 10:06 PM EDT Gender Identity Male 02/03/2018 6:47 AM EDT Sexual Orientation Straight 02/03/2018 6: 47 AM EDT documented as of this encounter Plan of Treatment Upcoming Encounters Date Type Department Care Team (Late st Contact Info) Description 10/13/2025 7:15 AM EST Office Visit [facility] [address] [facility] 3rd Floor, [address] [place] [address] Allan Dowell DO [address] [facility] [address] [place] [address] [email or web address] documented as of this encounter Results * CT FACE WITH CONTRAST (02/11/2021 8:29 AM EDT) Anatomical Region Laterality Modality Face Computed Tomogra phy 02/11/2021 8:46 AM EDT Impressions 02/11/2021 9:10 AM EDT 1. Development of air-fluid level within the right maxillary sinus. This could represent an abscess and should be correlated clinically. Moderate amount of adjacent mucosal thickening or retention cyst in the maxillary sinus. Occlusion of the right ostiomeatal complex. Severe erosion of much of the wall of the maxillary sinus and the adjacent maxilla. 2. No other air fluid levels or significant sinus disease within the other paranasal sinuses. 3. Moderate nasal deviation to the right and findings consistent with rhinitis. Narrative 02/11/2021 9:10 AM EDT HISTORY: Right maxillary pain, abnormal previous exam, impacted wisdom tooth on the right. I COMPARISON: CT brain 03/05/2018 TECHNIQUE: Nonenhanced study performed. FINDINGS: Maxillary sinuses: Development of large air-fluid level within the right maxillary sinus in the region of previously demonstrated mucous retention cyst or mucocele. There is faint thin calcification along the margins of the air-fluid level. Moderate amount of adjacent mucosal thickening or retention cyst in the maxillary sinus. Severe erosion of the posterior inferior lateral wall and medial wall of the maxillary sinus as well as the adjacent maxilla. The proximal infundibulum of the ostiomeatal complex is occluded. Tiny retention cyst within the left maxillary sinus which is otherwise clear. The left ostiomeatal complex is patent. Nasoethmoidal: Similar moderate nasal deviation to the right. Progressive hypertrophy of the middle and inferior nasal turbinates and narrowing of the nasal airway. Mild mucosal thickening in bilateral ethmoid air cells. Sphenoid sinus: Traces of mucosal thickening. Frontal sinuses: Clear. Other bones and teeth: No other erosions or suspicious lytic or blastic lesions within the bones. An impacted wisdom tooth again demonstrated projecting slightly within the posterior inferior aspect of the right maxillary sinus. Soft tissues: No evidence of soft tissue masses. Procedure Note Bijan Frey MD - 02/11/2021 HISTORY: Right maxillary pain, abnormal previous exam, impacted wisdomtooth on the right. I COMPARISON: CT brain 03/05/2018 TECHNIQUE: Nonenhanced study performed. FINDINGS: Maxillary sinuses: Development of large air-fluid level within the rightmaxillary sinus in the region of previously demonstrated mucous retentioncyst or mucocele. There is faint thin calcification along the margins ofthe air-fluid level. Moderate amount of adjacent mucosal thickening orretention cyst in the maxillary sinus. Severe erosion of the posteriorinferior lateral wall and medial wall of the maxillary sinus as well asthe adjacent maxilla. The proximal infundibulum of the ostiomeatal complexis occluded. Tiny retention cyst within the left maxillary sinus which isotherwise clear. The left ostiomeatal complex is patent. Nasoethmoidal: Similar moderate nasal deviation to the right. Progressivehypertrophy of the middle and inferior nasal turbinates and narrowing ofthe nasal airway. Mild mucosal thickening in bilateral ethmoid aircells. Sphenoid sinus: Traces of mucosal thickening. Frontal sinuses: Clear. Other bones and teeth: No other erosions or suspicious lytic or blasticlesions within the bones. An impacted wisdom tooth again demonstratedprojecting slightly within the posterior inferior aspect of the rightmaxillary sinus. Soft tissues: No evidence of soft tissue masses. IMPRESSION: 1. Development of air-fluid level within the right maxillary sinus. Thiscould represent an abscess and should be correlated clinically. Moderateamount of adjacent mucosal thickening or retention cyst in the maxillarysinus. Occlusion of the right ostiomeatal complex. Severe erosion of muchof the wall of the maxillary sinus and the adjacent maxilla. 2. No other air fluid levels or significant sinus disease within the otherparanasal sinuses. 3. Moderate nasal deviation to the right and findings consistent withrhinitis. Taurus Galicia DDS IMG CT HEAD/NECK Final R esult documented in this encounter Visit Diagnoses Diagnosis Maxillary sinus mass- Primary Swelling, mass, or lump in head and neck Maxillary sinus mass Swelling, mass, or lump in head and neck documented in this encounter Care Teams Wire Drawing Die Maker Relationship Specialty Start Date End Date William Salcedo MD [address] [place] [address] [email or web address] PCP - General Family Medicine 05/20/19 03/25/22 Obdulia Pace DO [address] [place] [address] PCP - General Family Medicine 03/26/22 09/29/25 Obdulia Pace DO [address] [place] [address] PCP - General Family Medicine 09/30/25 documented as of this encounter Additional Source Comments The information contained in this document represents components of the legal health record. It is not the complete legal health record.[facility]
--- OUTSIDE RECORDS SUMMARY | 2025-10-02 17:45 | XMS_ITS | Encounter Summary ---
Author Organization [facility] Address [address] [facility] [address] [place] [address] Phone Care Team Providers Care Medical Screener Name Role Phone William Salcedo MD Primary Care Provider Obdulia Pace DO Primary Care Provider Obdulia Pace DO Primary Care Provider [phone] Encounter Details Date Type Department Care Team (Late st Contact Info) Description 12/24/2018 Procedure Pass [facility] Endoscopy Admitting Dept Virtual Department [address] [place] [address] Social History Tobacco Use Types Packs/Day Years [...] Description 10/13/2025 7:15 AM EST Office Visit [facility] [address] [place] [address] 3rd Floor, [address] [place] [address] Allan Dowell DO [address] [facility] [address] [place] [address] [email or web address] documented as of this encounter Visit Diagnoses Not on filedocumented in this encounter Care Teams Medical Screener Relationship Specialty Start Date End Date William Salcedo MD [address] [facility] [address] [place] [phone] [email or web address] PCP - General Family Medicine 05/20/19 03/25/22 Obdulia Pace DO [address] [facility] [address] [place] [address] PCP - General Family Medicine 03/26/22 09/29/25 Obdulia Pace DO [address] [place] [address] [place] [phone] PCP - General Family Medicine 09/30/25 documented as of this encounter Additional Source Comments The information contained in this document represents components of the legal health record. It is not the complete legal health record.[facility]
--- OUTSIDE RECORDS SUMMARY | 2025-10-02 17:45 | XMS_ITS | Encounter Summary ---
Author Organization [facility] Address [address] [facility] [address] [place] [address] Phone Care Team Providers Care Print Shop Stenographer Name Role Phone William Salcedo MD Primary Care Provider Obdulia Pace DO Primary Care Provider Obdulia Pace DO Primary Care Provider Encounter Details Date Type Department Care Team (Late st Contact Info) Description 02/25/2018 Procedure Pass [facility], Ct Scan - [address] [address] Social History Tobacco Use Types Packs/Day Years Used Date Smoking Tobacco: Never Smokeless Tobacco: Never Sex and Gender Information Value Date Recorded Sex Assigned at Male 02/03/2018 6:47 AM EDT Legal Sex Male 10:06 PM EDT Gender Identity Male 02/03/2018 6:47 AM EDT Sexual Orientation Straight 02/03/2018 6: 47 AM EDT documented as of this encounter Plan of Treatment Upcoming Encounters Date Type Department Care Team (Late st Contact Info) Description 10/13/2025 7:15 AM EST Office Visit [facility] [address] [place] [address] 3rd Floor, [address] [place] [address] Allan Dowell DO [address] [facility] [address] [place] [address] [email or web address] documented as of this encounter Visit Diagnoses Not on filedocumented in this encounter Care Teams Print Shop Stenographer Relationship Specialty Start Date End Date William Salcedo MD [address] [facility] [address] [place] [address] PCP - General Family Medicine 05/20/19 03/25/22 Obdulia Pace DO [address] [facility] [address] [place] [address] [email or web address] PCP - General Family Medicine 03/26/22 09/29/25 Obdulia Pace DO [address] [place] [address] [place] [address] PCP - General Family Medicine 09/30/25 documented as of this encounter Additional Source Comments The information contained in this document represents components of the legal health record. It is not the complete legal health record.[facility]
--- OUTSIDE RECORDS SUMMARY | 2025-10-02 17:45 | XMS_ITS | Encounter Summary ---
Author Organization [facility] Address [address] [place] [address] Phone Care Team Providers Care Grapple Yarder Operator Name Role Phone Obdulia Pace DO Primary Care Provider + [phone] Obdulia Pace DO Primary Care Provider + [phone] Reason for Referral * MRI/CAT Scan - Closed Specialty Diagnoses / Procedures Referred By Sujata hummel Referred To Contact Radiology Diagnoses OAC (dre-antral communication) Procedures CT Face Anthony Lawson DMD [address] [place] [address] Phone: tel: fax: mailto:[email or web address] Referral ID Status Reason Start Date Expiration Date Visits Re quested Visits Authorized [id number] Closed 04/05/2025 04/05/2026 1 1 Encounter Details Date Type Department Care Team (Latest Contact Info) Description 04/05/2025 Transcribe Orders Virtual Department 30 [place] [address] Antohny Lawson DMD [address] [place] [address] [email or web address] OAC (dre-antral communication) (Primary Dx) Social History Tobacco Use Types Packs/Day Years Used Date Smoking Tobacco: Never Smokeless Tobacco: Never Alcohol Use Standard Drinks/Week Comments Yes 1 (1 standard drink = 0.6 oz pur e alcohol) Education Answer Date Recorded Are you interested in more education? Not on kaylah e 02/27/2023 Are you concerned about learning? Not on file 02/27/2023 No 02/27/2023 No 02/27/2023 Digital Access Answer Date Recorded No 03/28/2023 No 03/28/2023 Reliable internet access at home? Not on file 03/28/2023 Device with a working camera? Not on file Intimate Partner Violence Answer Date R ecorded Denied Basic Needs Not on file 02/04/2024 In the past 12 months have y ou been in a relationship with a person who hurts, threatens, or tries to control you? No 02/04/2024 Worried food would run out Not on file 02/03 In the past 12 months have y ou been in a relationship with a person who hurts, threatens, or tries to control you? No 02/04/2024 Sex and Gender Information Value Date Recorded Sex Assigned at Male 02/03/2018 6:47 AM EDT Legal Sex Male 10:06 PM EDT Gender Identity Male 02/03/2018 6:47 AM EDT Sexual Orientation Straight 02/03/2018 6: 47 AM EDT documented as of this encounter Plan of Treatment Upcoming Encounters Date Type Department Care Team (Late st Contact Info) Description 10/13/2025 7:15 AM EST Office Visit [facility] [address] [place] [address] [address] [facility], [address] [place] [address] Allan Dowell, [address] [place] [address] [place] [address] [email or web address] documented as of this encounter Results * CT FACE WITHOUT CONTRAST (04/22/2025 9:51 AM EDT) Anatomical Region Laterality Modality Face Computed Tomogra phy 04/26/2025 8:57 AM EDT Impressions 04/26/2025 9:16 AM EDT 1. Postsurgical changes in this patient with extraction of a right maxillary molar and excision of a known dentigerous cyst, with defects in the inferolateral and inferomedial maxillary antrum wall, as discussed above. 2. Interval decrease in the size of the right maxillary antrum with moderate to severe mucosal thickening, and chronic inflammatory changes, as above. 3. New partial opacification of the right frontal sinus and right frontoethmoidal junction. 4. Other findings, as above. Narrative 04/26/2025 9:[address] FACE WITHOUT CONTRAST Referring clinician's provided indication for this examination in Epic: Outside Radiology Order; [facility] ANTRAL COMMUNICATION TECHNIQUE: Multidetector-row CT of the face was performed without intravenous contrast using tailored dose modulation techniques. Images were reconstructed in the axial, coronal, and sagittal planes. COMPARISON: CT scan of the paranasal sinuses February 11, 2021. FINDINGS: Aerodigestive Tract: Calcifications are seen in the palatine tonsils bilaterally, likely tonsillith. The imaged mucosa otherwise appears grossly symmetrical. Salivary Glands: No obvious lesion is present within the imaged portions of the parotid glands. The submandibular glands and not completely included in the volume of acquisition. Paranasal Sinuses and Mastoids: Post surgical changes noted in the right maxillary sinus in this patient with extraction of a known impacted ADA 1, with excision of associated dentigerous cyst, likely including a defect in the inferolateral wall (3:124-139). These defects extending inferiorly along the buccal maxillary alveolus. There is also an inferior defect communicating with the nasal cavity (3:133) The right maxillary antrum is smaller in size when compared to previous CT of January 2021. There are chronic changes on the right posterior and inferior maxillary wall with new thickening and sclerosis of the wall likely sequela of chronic long-standing inflammation. In addition, there is thickening and sclerosis of the wall of the right inferior orbital fissure. There is resolution of the right maxillary sinus air- fluid level seen on previous CT scan of January 2021. There is moderate to severe concentric mucosal thickening in the right maxillary sinus, which appears near completely opacified. Small lobulated opacities noted in the left inferior maxillary sinus, which could be due to focal mucosal thickening and or retention cyst. One of these lobulated density is probably contiguous with the root of the left maxillary ADA 13. A small dentigerous cyst is a differential consideration. There is new partial opacification of the right frontal sinus and right frontoethmoidal junction. There is scattered mucosal thickening in the ethmoid sinuses, also progressed since previous CT scan. Minimal mucosal thickening noted in the left sphenoid sinus. There is rightward nasal septum deviation. The mandibular wisdom teeth are impacted and not erupted. The mastoids and middle ears are well-aerated. Petrous Apices, Clivus, Basilar Cisterns, Cavernous Sinuses, Sella, Jugular Foramina and Poststyloid Parapharyngeal Spaces: No skull base mass. Lymph Nodes: No significant enlarged lymph nodes within the image portions of the upper neck meeting CT criteria for pathologic involvement. Brain and Orbits: No detectable abnormality is present in the imaged portions of the brain and orbits. Bones and Soft Tissues: Nonspecific soft tissue thickening seen in the right forehead extending inferiorly to the supra orbital region. Other visualized soft tissues are unremarkable. No suspicious osseous lesions are present. Procedure Note Morteza Serrano MD - 04/26/2025 CT FACE WITHOUT CONTRAST Referring clinician's provided indication for this examination in Epic:Outside Radiology Order; [facility] ANTRAL COMMUNICATION TECHNIQUE: Multidetector-row CT of the face was performed withoutintravenous contrast using tailored dose modulation techniques. Imageswere reconstructed in the axial, coronal, and sagittal planes. COMPARISON: CT scan of the paranasal sinuses February 11, 2021. FINDINGS: Aerodigestive Tract: Calcifications are seen in the palatine tonsilsbilaterally, likely tonsillith. The imaged mucosa otherwise appearsgrossly symmetrical. Salivary Glands: No obvious lesion is present within the imaged portionsof the parotid glands. The submandibular glands and not completelyincluded in the volume of acquisition. Paranasal Sinuses and Mastoids: Post surgical changes noted in the rightmaxillary sinus in this patient with extraction of a known impacted ADA 1,with excision of associated dentigerous cyst, likely including a defect inthe inferolateral wall (3:124-139). These defects extending inferiorlyalong the buccal maxillary alveolus. There is also an inferior defectcommunicating with the nasal cavity (3:133) The right maxillary antrum issmaller in size when compared to previous CT of January 2021. There are chronic changes on the right posterior and inferior maxillarywall with new thickening and sclerosis of the wall likely sequela ofchronic long-standing inflammation. In addition, there is thickening andsclerosis of the wall of the right inferior orbital fissure. There isresolution of the right maxillary sinus air- fluid level seen on previousCT scan of January 2021. There is moderate to severe concentric mucosalthickening in the right maxillary sinus, which appears near completelyopacified. Small lobulated opacities noted in the left inferior maxillary sinus,which could be due to focal mucosal thickening and or retention cyst. Oneof these lobulated density is probably contiguous with the root of theleft maxillary ADA 13. A small dentigerous cyst is a differentialconsideration. There is new partial opacification of the right frontal sinus and rightfrontoethmoidal junction. There is scattered mucosal thickening in theethmoid sinuses, also progressed since previous CT scan. Minimal mucosalthickening noted in the left sphenoid sinus. There is rightward nasal septum deviation. The mandibular wisdom teeth are impacted and not erupted. The mastoids and middle ears are well-aerated. Petrous Apices, Clivus, Basilar Cisterns, Cavernous Sinuses, Sella, Jugular Foramina and Poststyloid Parapharyngeal Spaces: No skull basemass. Lymph Nodes: No significant enlarged lymph nodes within the image portionsof the upper neck meeting CT criteria for pathologic involvement. Brain and Orbits: No detectable abnormality is present in the imagedportions of the brain and orbits. Bones and Soft Tissues: Nonspecific soft tissue thickening seen in theright forehead extending inferiorly to the supra orbital region. Othervisualized soft tissues are unremarkable. No suspicious osseous lesionsare present. IMPRESSION: 1. Postsurgical changes in this patient with extraction of a rightmaxillary molar and excision of a known dentigerous cyst, with defects inthe inferolateral and inferomedial maxillary antrum wall, as discussedabove. 2. Interval decrease in the size of the right maxillary antrum withmoderate to severe mucosal thickening, and chronic inflammatory changes,as above. 3. New partial opacification of the right frontal sinus and rightfrontoethmoidal junction. 4. Other findings, as above. Anthony Lawson DMD IMG CT HEAD/NECK Final Res ult documented in this encounter Visit Diagnoses Diagnosis OAC (dre-antral communication)- Primary Chronic maxillary sinusitis OAC (dre-antral communication) Chronic maxillary sinusitis documented in this encounter Care Teams Grapple Yarder Operator Relationship Specialty Start Date End Date Obdulia Pace DO [email or web address] PCP - General Family Medicine 03/26/22 09/29/25 Obdulia Pace DO [address] [place] [address] [place] [address] PCP - General Family Medicine 09/30/25 documented as of this encounter Additional Source Comments The information contained in this document represents components of the legal health record. It is not the complete legal health record.[facility]
--- OUTSIDE RECORDS SUMMARY | 2025-10-02 17:45 | XMS_ITS | Encounter Summary ---
Author Organization [facility] Address [address] [place] [address] Phone Care Team Providers Care Data Entry Name Role Phone William Salcedo MD Primary Care Provider Obdulia Pace DO Primary Care Provider + [phone] Obdulia Pace DO Primary Care Provider + [phone] Reason for Referral * MRI/CAT Scan - Closed Specialty Diagnoses / Procedures Referred By Sujata hummel Referred To Contact Radiology Diagnoses Amnesia Procedures CT Head Marielena Fitzpatrick NP Phone: tel: fax: [email or web address] Referral ID Status Reason Start Date Expiration Date Visits Re quested Visits Authorized [id number] Closed 02/25/2018 02/25/2019 1 1 Encounter Details Date Type Department Care Team (Late st Contact Info) Description 02/25/2018 Ancillary Orders Virtual Department [address] [place] [address] Marielena Fitzpatrick NP [address] [place] [address] [email or web address] Social History Tobacco Use Types Packs/Day Years [...] Description 10/13/2025 7:15 AM EST Office Visit [facility] [address] [facility] 3rd Floor, [address] [place] [address] Alaln Dowell, 22 [facility] [address] [place] [address] [email or web address] documented as of this encounter Results * CT HEAD WITHOUT CONTRAST (03/05/2018 7:47 AM EDT) Anatomical Region Laterality Modality Head Computed Tomogra phy 03/05/2018 7:58 AM EDT Impressions 03/05/2018 8:14 AM EDT No evidence of an acute intracranial process. TOTAL CTDIvol: 58.40 mGy POS - [id number] Narrative 03/05/2018 8:14 AM EDT COMPARISON: None TECHNIQUE: Nonenhanced head CT from skull base to vertex with multi-planar reformats. Manual dose reduction technique tailored for patient and site of imaging FINDINGS: No evidence of intracranial hemorrhage or an acute territorial infarction. Hayes-white matter differentiation appears preserved. Mild patchy white matter hypodensities which are typically associated with small vessel disease. No hydrocephalus. No evidence of a mass, mass effect, or midline shift. No cerebellar ectopia. Pituitary gland is not enlarged. No fracture or destructive bone lesions. Large circumscribed homogeneous cystic lesion near completely filling the right maxillary sinus. It results in bony expansion and slight erosion of the lateral and medial maxillary haider. This probably represents a mucocele although mucoceles typically result in complete opacification of the sinus.. No clear extension into the ostiomeatal unit. Mastoid air cells are clear. Procedure Note Sam Isaacs MD - 03/05/2018 COMPARISON: None TECHNIQUE: Nonenhanced head CT from skull base to vertex with multi- planarreformats. Manual dose reduction technique tailored for patient and siteof imaging FINDINGS: No evidence of intracranial hemorrhage or an acute territorial infarction.Hayes- white matter differentiation appears preserved. Mild patchy whitematter hypodensities which are typically associated with small vesseldisease. No hydrocephalus. No evidence of a mass, mass effect, or midline shift.No cerebellar ectopia. Pituitary gland is not enlarged. No fracture or destructive bone lesions. Large circumscribed homogeneouscystic lesion near completely filling the right maxillary sinus. Itresults in bony expansion and slight erosion of the lateral and medialmaxillary haider. This probably represents a mucocele although mucocelestypically result in complete opacification of the sinus.. No clearextension into the ostiomeatal unit. Mastoid air cells are clear. IMPRESSION: No evidence of an acute intracranial process. TOTAL CTDIvol: 58.40 mGy POS - [id number] Marielena Fitzpatrick NP IMG CT HEAD/NECK Final Result documented in this encounter Visit Diagnoses Diagnosis Amnesia Memory loss Amnesia Memory loss documented in this encounter Care Teams Data Entry Relationship Specialty Start Date End Date William Salcedo MD [address] [place] [phone] [email or web address] PCP - General Family Medicine 05/20/19 03/25/22 Obdulia Pace DO [address] [place] [address] PCP - General Family Medicine 03/26/22 09/29/25 Obdulia Pace DO [address] [place] [address] PCP - General Family Medicine 09/30/25 documented as of this encounter Additional Source Comments The information contained in this document represents components of the legal health record. It is not the complete legal health record.[facility]
--- OUTSIDE RECORDS SUMMARY | 2025-10-02 17:45 | XMS_ITS | Encounter Summary ---
Author Organization [facility] Address [address] [place] [address] Phone Care Team Providers Care Continuous Process Tanner Rotary Drum Name Role Phone Obdulia Pace DO Primary Care Provider + [phone] Obdulia Pace DO Primary Care Provider + [phone] Encounter Details Date Type Department Care Team (Late st Contact Info) Description 04/05/2025 Procedure Pass [facility], Ct Scan - [address] [address] Social History Tobacco Use Types Packs/Day Years [...] Description 10/13/2025 7:15 AM EST Office Visit [facility] 22 [facility] 3rd Floor, [address] [place] [address] Allan Dowell DO 22 [facility] [address] [place] [address] documented as of this encounter Visit Diagnoses Not on filedocumented in this encounter Care Teams Continuous Process Tanner Rotary Drum Relationship Specialty Start Date End Date Obdulia Pace DO PCP - General Family Medicine 03/26/22 09/29/25 Obudlia Pace DO [address] [place] [address] [place] [address] PCP - General Family Medicine 09/30/25 documented as of this encounter Additional Source Comments The information contained in this document represents components of the legal health record. It is not the complete legal health record.[facility]
--- OUTSIDE RECORDS SUMMARY | 2025-10-02 17:45 | XMS_ITS | Encounter Summary ---
Author Organization [facility] Address [address] [place] [address] Phone Care Team Providers Care Electrical Technician Name Role Phone Obdulia Pace DO Primary Care Provider + [phone] Obdulia Pace DO Primary Care Provider + [phone] Encounter Details Date Type Department Care Team (Late st Contact Info) Description 02/05/2024 Procedure Pass [facility]oscopy Admitting Dept Virtual Department [address] [place] [address] Social History Tobacco Use Types Packs/Day Years [...] Description 10/13/2025 7:15 AM EST Office Visit [facility] 22 [facility] 3rd Floor, [address] [place] [address] Allan Dowell DO 22 [facility] [address] [place] [address] documented as of this encounter Visit Diagnoses Not on filedocumented in this encounter Care Teams Electrical Technician Relationship Specialty Start Date End Date Obdulia Pace DO PCP - General Family Medicine 03/26/22 09/29/25 Obdulia Pace DO [address] [place] [address] [place] [address] PCP - General Family Medicine 09/30/25 documented as of this encounter Additional Source Comments The information contained in this document represents components of the legal health record. It is not the complete legal health record.[facility]
--- OUTSIDE RECORDS SUMMARY | 2025-10-02 17:45 | XMS_ITS | Encounter Summary ---
Author Organization [facility] Address [address] [place] [address] Phone Care Team Providers Care Drupal Programmer Name Role Phone Obdulia Pace DO Primary Care Provider [phone] Obdulia Pace DO Primary Care Provider + [phone] Encounter Details Date Type Department Care Team (Late st Contact Info) Description 09/12/2025 Orders Only [facility] 22 [facility] 3rd Floor, [address] [place] [address] Nikko Pal PA [address] [place] [address] Social History Tobacco Use Types Packs/Day Years [...] Description 10/13/2025 7:15 AM EST Office Visit [facility] 22 [facility] 3rd Floor, [address] [place], [place] [phone] Allan Dowell DO 22 [facility] [address] [place] [address] documented as of this encounter Procedures Procedure Name Priority Date/Time Associated Diagnosis Comments OUTSIDE MONITOR Routine 09/12/2025 11:38 AM EST documented in this encounter Results * Outside Monitor Report Only (09/12/2025 11:38 AM EST) [facility] MIREYA RODRIGUES Final Result documented in this encounter Visit Diagnoses Not on filedocumented in this encounter Care Teams Drupal Programmer Relationship Specialty Start Date End Date Obdulia Pace DO PCP - General Family Medicine 03/26/22 09/29/25 Obdulia Pace DO [address] [place] [phone] PCP - General Family Medicine 09/30/25 documented as of this encounter Additional Source Comments The information contained in this document represents components of the legal health record. It is not the complete legal health record.[facility]
--- OUTSIDE RECORDS SUMMARY | 2025-10-02 17:46 | XMS_ITS | Encounter Summary ---
Author Organization [facility] Address [address] [facility] [address] [place] [address] Phone Care Team Providers Care Cd Reactor Operator Name Role Phone William Salcedo MD Primary Care Provider Obdulia Pace DO Primary Care Provider [phone] Obdulia Pace DO Primary Care Provider [phone] Encounter Details Date Type Department Care Team (Late st Contact Info) Description 05/02/2021 Procedure Pass [place] Admitting Dept - Virtual Department 30 [place] [address] Social History Tobacco Use Types Packs/Day Years [...] Description 10/13/2025 7:15 AM EST Office Visit [facility] 22 [facility] 3rd Floor, [address] [place], [place] [phone] Allan Dowell DO 22 [facility] [address] [place] [address] [email or web address] documented as of this encounter Visit Diagnoses Not on filedocumented in this encounter Care Teams Cd Reactor Operator Relationship Specialty Start Date End Date William Salcedo MD [address] [place] [address] [email or web address] PCP - General Family Medicine 05/20/19 03/25/22 Obdulia Pace DO [address] [place] [address] PCP - General Family Medicine 03/26/22 09/29/25 Obdulia Pace DO [address] [place] [address] [place] [address] PCP - General Family Medicine 09/30/25 documented as of this encounter Additional Source Comments The information contained in this document represents components of the legal health record. It is not the complete legal health record.[facility]
--- OUTSIDE RECORDS SUMMARY | 2025-10-02 17:46 | XMS_ITS | Clinical Summary ---
Author Organization [facility] Address [address] [place] [address] Phone Care Team Providers Care Director Client Services Name Role Phone Obdulia Pace Primary Care Provider Allergies Active Allergy Reactions Criticality Noted Date Comments Atorvastatin 02/04/2024 Muscle weakness Medications pravastatin (PRAVACHOL) 20 MG tablet Take 20 mg by mouth daily. Active UBIDECARENONE (COQ-10 ORAL) Take by mouth daily. Active lisinopril (PRINIVIL,ZESTR IL) 20 MG tablet Take 20 mg by mouth daily. Active ascorbate calcium (VITAMIN C ORAL) Take by mouth. Activ e aspirin 81 MG EC tablet Take 81 mg by mouth daily. Active hydroCHLOROthia zide (HYDRODIURIL) 25 MG tablet Take 25 mg by mouth daily. Active sodium chloride (OCEAN) 0.65 % nasal spray 1 spray by Nasal route as needed for congestion. 15 mL 12 1 Active Additional Information Patient not taking.Reported on 09/30/2025 pseudoephedrine (SUDAFED) 30 MG tablet Take 1 tablet (30 mg total) by mouth every 6 (six) hours as needed for congestion. 30 tablet 1 Active Additional Information Patient not taking.Reported on 09/30/2025 amLODIPine (NORVASC) 5 MG tablet Take 1 tablet by mouth every morning. 4 Active zinc sulfate 50 mg zinc (220 mg) Tab Take 220 mg by mouth daily. Active metoprolol succinate (TOPROL-XL) 25 MG 24 hr tablet Take 1 tablet by mouth every morning. 5 Active sertraline (ZOLOFT) 100 MG tablet Take 1 tablet by mouth every morning. Active mirtazapine (REMERON) 15 MG tablet Take 15 mg by mouth nightly at bedtime. Active Active Problems No known active problems Encounters Date Type Department Care Team Description 09/30/2025 3:37 PM EST - 09/30/2025 7:49 PM EST Emergency [facility] [address] [place] [address] Mayo Olvera, DO Discharge Disposition: Home or Self Care 09/22/2025 Transcribe Orders [facility] [address]rd Floor, [address] [place] [address] Obdulia Pace, Paroxysmal supraventricular tachycardia (Primary Dx) 09/12/2025 Orders Only [facility] [address]rd Floor, [address] [place] [address] Nikko Pal PA 08/04/2025 Transcribe Orders [facility] [address]rd Floor, [address] [place] [address] Kelvin Vaughan Irregular heart beat (Primary Dx) from Last 3 Months Social History Tobacco Use Types Packs/Day Years Used Date Smoking Tobacco: Never Smokeless Tobacco: Never Tobacco Cessation:Counseling Given: Not Answered Alcohol Use Standard Drinks/Week Comments Not Currently [...] Orientation Straight 02/03/2018 6: 47 AM EDT Last Filed Vital Signs Vital Sign Reading [...] Mass Index 25.51 09/30/2025 3:55 PM EST Plan of Treatment Upcoming Encounters Date Type Department Care Team (Late st Contact Info) Description 10/13/2025 7:15 AM EST Office Visit [facility] [address] [place] [address] 3rd Floor, [address] [place] [address] Allan Dowell, [address] [place] [address] [email or web address] Health Maintenance Due Date Last Done Comments LIPID PANEL 1945 DEPRESSION SCREENING 1959 HEPATITIS C SCREENING 1965 COLOGUARD 1992 FIT TEST 1992 FOBT 1992 SIGMOIDOSCOPY 1992 VIRTUAL COLONOSCOPY 1992 CREATININE LEVEL 02/07/2022 02/07/2021 POTASSIUM LEVEL 02/07/2022 02/07/2021 RSV VACCINE (1 - 1-dose 75+ series) 2022 INFLUENZA VACCINE (#1) 2025 0, 10/19/2018, 10/16/2017 COVID-19 VACCINE (1 - 2024-2 6 season) 2025 COLONOSCOPY 02/04/2027 02/05/2024, 12/24/2018 COLORECTAL CANCER SCREENING 02/04/2027 Adult Td,Tdap Booster 04/29/2029 04/29/2019 , 11/13/2009 PNEUMOCOCCAL VACCINES (50+ years) Completed 02/21/2016, 08/16/2014 ZOSTER VACCINES Completed 07/11/2019, 05/10/2019, 09/09/2011 SMOKING STATUS SCREENING (On ce After 26 Yrs) Completed 02/05/2024 HEPATITIS A VACCINES Aged Out No long er eligible based on patient's age to complete this topic HIB VACCINES Aged Out No longer eligi ble based on patient's age to complete this topic MENINGOCOCCAL VACCINES (ACWY) Aged Out No longer eligible based on patient's age to complete this topic MENINGOCOCCAL VACCINES (B) Aged Out N o longer eligible based on patient's age to complete this topic Medical Devices Implanted Type Area Blender Conveyor Operator Device Identifier Shelf Expiration Date Model / Serial / Lot Lens Lens Bilateral: Eye Wire Wire Left: Ear Procedures Procedure Name Priority Date/Time Associated Diagnosis Comments OUTSIDE MONITOR Routine 09/12/2025 11:38 AM EST ENDOSCOPY, COLON 02/05/2024 11:2 9 AM EDT BASIC METABOLIC PANEL (BMP) Routine 02/07/2021 7:35 AM EDT History of bone scan from Last 3 Months or Most Recently Relevant to Health Maintenance Results * Outside Monitor Report Only (09/12/2025 11:38 AM EST) us [facility] MIREYA RODRIGUES Final Result * ENDOSCOPY, COLON (02/05/2024 11:29 AM EDT) Narrative Transcriptions Bijan Maldonado MD - 02/05/2024 11:29 AM EDT [facility] Patient Name: Dimitry Yost Attending MD:: BIJAN MALDONADO MD, Procedure Date: 02/05/2024 11:29 AM Date of : 1945 Age: 78 Admit Type: Outpatient Gender: Male Room: [place] [address] Referring MD: Obdulia Pace Exam Type: Colonoscopy Indications: High risk colon cancer surveillance: Personalhistory of colonic polyps Medications: Monitored Anesthesia Care Procedure: Informed consent was obtained from the patientafter discussion of the indications, limitations, alternatives, benefits, and risks of the procedure. Risks specifically discussed include but are not limited to medication reactions, missed lesions, bleeding, perforation, or the need for emergent surgery. Throughout the procedure, the patient's blood pressure, pulse, end-tidal CO2, and oxygensaturations were monitored continuously. The Colonoscope was introduced through the anus and advanced to the cecum, identified by theappendiceal orifice. The colonoscopy was performed withmoderate difficulty due to restricted mobility of the colon. The patient tolerated the procedure well. Thequality of the bowel preparation was adequate to identify polyps. Anatomical landmarks were photographed. Complications: No immediate complications. Estimated blood loss:None. Findings: The perianal and digital rectal examinations were normal. Six sessile polyps were found in the sigmoid colon, descending colon and ascending colon. The polypswere 2 to 7 mm in size. These polyps were removed with a cold snare. Resection was complete, but the polyp tissue was only partially retrieved. Multiple small and large-mouthed diverticula were found in the sigmoid colon, descending colon and ascending colon. The rectum, recto-sigmoid colon, splenic flexure, transverse colon, hepatic flexure, cecum, ileocecal valve and rectum (on retroflexion) appearednormal. Impression: - Six 2 to 7 mm polyps in the sigmoid colon, in the descending colon and in the ascending colon,removed with a cold snare. Complete resection. Partial retrieval. - Diverticulosis in the sigmoid colon, in the descending colon and in the ascending colon. - The rectum (on retroflexion), rectum, splenic flexure, transverse colon, hepatic flexure, cecum, recto-sigmoid colon and ileocecal valve arenormal. Recommendation: - Discharge patient to home. - High fiber diet. - Continue present medications. - Await pathology results. - Repeat colonoscopy in 3 years for surveillance. - You have diverticulosis so please eat a highfiber diet. BIJAN MALDONADO MD 02/05/2024 12:03:12 PM This report has been signed electronically. Number of Addenda: 0 Note Initiated On: 02/05/2024 11:29 AM Procedure Code(s): --- Professional --- 81682, Colonoscopy, flexible; with removal of tumor(s), polyp(s), or other lesion(s) by snare technique --- Technical --- 42392, Colonoscopy, flexible; with removal of tumor(s), polyp(s), or other lesion(s) by snare technique Diagnosis Code(s): --- Professional --- Z86.010, Personal history of colonic polyps D12.5, Benign neoplasm of sigmoid colon D12.4, Benign neoplasm of descending colon D12.2, Benign neoplasm of ascending colon K57.30, Diverticulosis of large intestine without perforation or abscess without bleeding --- Technical --- Z86.010, Personal history of colonic polyps D12.5, Benign neoplasm of sigmoid colon D12.4, Benign neoplasm of descending colon D12.2, Benign neoplasm of ascending colon K57.30, Diverticulosis of large intestine without perforation or abscess without bleeding CPT copyright 2021 [employer]. All rights reserved. The codes documented in this report are preliminary and upon insurance coder reviewmay be revised to meet current compliance requirements. Procedure Date: 02/05/2024 11:29:[address] [place] [address] [place] Obdulia Pace DO GI PROCEDURE ORDERABLES Edit ed Result - Final * (ABNORMAL) Basic metabolic panel (02/07/2021 7:35 AM EDT) SODIUM 138 133 - 146 mmol/L [facility] CHLORIDE 103 96 - 108 mmol/L [facility] POTASSIUM 3.9 3.3 - 5.1 mmol/L [facility] CO2 26 21 - 35 mmol/L [facility] BUN 25(H) 6 - 19 mg/dL [facility] CREATININE 0.70 0.5 - 1.5 mg/dL [facility] GLUCOSE 172(H) 70 - 99 mg/dL [facility] CALCIUM 9.6 8.4 - 10.3 mg/dL [facility] EGFR 94 >59 mL/min/1.7 3m2 [facility] Comment:Estimated glomerular filtration rate calculated using the CKD-EPI equation. ANION GAP 13 10 - 20 mmol/L [facility] Blood 02/07/2021 7:35 AM EDT 02/07/2021 7:39 AM EDT Taurus Galicia DDS LAB BLOOD BKR ORDERABLES Final Result [facility] [address] [place] [address] from Last 3 Months or Most Recently Relevant to Health Maintenance Insurance MEDICARE PART A & B [facility] MEDICARE PART A & B [facility] MEDICARE PART A & B [facility] MEDICARE PART A & B [facility] MEDICARE PART A & B [facility] MEDICARE PART A & B [facility] MEDICARE PART A & B Member Subscriber Plan / Payer (Ef fective 2012-Present) Name:Dimitry Yost Member ID:[id number] Relation to Subscriber:Self Name:Dimitry Yost Subscriber ID:[id number] Payer ID:[id number] Group ID:Not on file Type:Medicare Address: [employer] [address] MEDICARE PART A & B [facility] MEDICARE PART A & B [facility] Care Teams Director Client Services Relationship Specialty Start Date End Date Obdulia Pace DO [address] [place] [address] [place] [phone] PCP - General Family Medicine 09/30/25 Additional Source Comments The information contained in this document represents components of the legal health record. It is not the complete legal health record.[facility]
--- OUTSIDE RECORDS SUMMARY | 2025-10-02 17:46 | XMS_ITS | Encounter Summary ---
Author Organization [facility] Address [address] [facility] [address] [place] [address] Phone Care Team Providers Care Historical Manuscripts Curator Name Role Phone William Salcedo MD Primary Care Provider [phone] Obdulia Pace DO Primary Care Provider Obdulia Pace DO Primary Care Provider [phone] Encounter Details Date Type Department Care Team (Late st Contact Info) Description 02/05/2021 Procedure Pass [facility], Ct Scan - [address] [address] Social History Tobacco Use Types Packs/Day Years [...] Description 10/13/2025 7:15 AM EST Office Visit [facility] [address] [facility] 3rd Floor, [address] [place], [place] [phone] Allan Dowell DO 22 [facility] [address] [place] [address] [email or web address] documented as of this encounter Visit Diagnoses Not on filedocumented in this encounter Care Teams Historical Manuscripts Curator Relationship Specialty Start Date End Date William Salcedo MD [address] [place] [address] [email or web address] PCP - General Family Medicine 05/20/19 03/25/22 Obdulia Pace DO [address] [place] [address] PCP - General Family Medicine 03/26/22 09/29/25 Obdulia Pace DO [address] [place] [address] [place] [address] PCP - General Family Medicine 09/30/25 documented as of this encounter Additional Source Comments The information contained in this document represents components of the legal health record. It is not the complete legal health record.[facility]
--- NOTE | 2025-10-02 22:27 | MHC.CARE ---
Pt will be master IPLOC. Section 12a in chart for safety
--- NOTE | 2025-10-02 22:31 | PHA.MEDREC ---
Pharmacy Consult ? Medication Reconciliation Pharmacy has completed the medication reconciliation.Checked med rec done by nursing
--- NOTE | 2025-10-03 02:04 | PC.NURSE ---
RN tried to medicate pt per mar; pt questioned the remeron. RN educated pt on this specific medication. pt declined the med. RN wasted the med in the pyxis.
--- NOTE | 2025-10-03 05:23 | PC.NURSE ---
*late entry*: At or around 0200, pt woke up and Rn tried to give pt his remeron which he declined., He stated he had to pee so RN told him he could use the restroom. Pt refused and stayed in his room. Pt has been up since then pacing around the room or sitting on the edge of the bed. He seems to be more confused since 0200. Rn checked on him again and encouraged him to try to use the urinal. Pt tried and was unable to go. RN tried to walk with him to the restroom which he refused again. Annika García came to assist and it seems pt prefers a male presence as Raquel walked with him to the restroom and pt was able to urinate. Pt is now sitting on his bed.
[2025-10-03 06:38] VITALS: BP 159/81; PULSE 88; RESP 20; TEMP 37.1; O2SAT 96
[2025-10-03] MEDS: Metoprolol Succinate ER 25 MG TAB.ER.24H PO (08:08)
--- NOTE | 2025-10-03 10:27 | PC.NURSE ---
Care assumed at 0700, Pt has been awake, calm and cooperative. He ate only a banana for breakfast and was hesitant to take his morning meds. Pts came into visit and stool was noted to be on the floor, small amounts in multiple areas. He was provided shower supplies and his assisted him. His son also came into visit.
[2025-10-03 14:33] VITALS: BP 149/71; PULSE 68; RESP 16; TEMP 36.6; O2SAT 98
[2025-10-03 16:17] VITALS: BP 132/98; PULSE 72; RESP 16; TEMP 36.9; O2SAT 96
--- NOTE | 2025-10-03 16:25 | PM.EVENT ---
Event Note Date of Service: 10/03/25 Event Note: Patient seen upon arrival to unit, presented info re CV, patient stated he did not want to be here, police were somehow harrasing him/after him. He declined to sign CV. Informed of legal status implications and of chance to further discuss CV. Time Spent With Patient Time: Total time managing care of this patient today _15___ minutes.
--- NOTE | 2025-10-03 17:12 | PC.NURSE ---
Dimitry Yost is a 80 year old Male who was admitted to [facility] S1 from [facility] pod on 10/03/25 at on a 12b for tx of Unspecified depressive disorder and unspecified anxiety disorder. Pt Utox negative. Pt has BPH and HTN. Per crisis assessment pt was brought to [facility] ED on a section 12 d/t the patient feeling increasingly depressed and increasingly paranoid. Pt has reportedly gone days without sleeping and that he would stay awake staring out the window with the lights off believing that the police are after him. Pt has reportedly not used the bathroom at home due to believing the police are in there. Pt reportly has been experiencing periods where he has thoughts of SI with no plan. Upon arrival to [facility] S1 pt displayed a constricted affect and a pleasant mood. Pt is alert and oriented x 4 but appears to have limited insight into situation and displays some confusion about medications and providers. Pt avoided eye contact with the RN throughout the admission assessment. Pt appeared to have some thought blocking when talking with the RN. Pt skin check unremarkable. VS WNL. When RN attempted to place the blood pressure cuff on the pt arm, pt jumped. RN assured the pt that she was just checking his blood pressure and he relaxed and held out his arm. Pt reports feeling anxious and depressed and stated I feel undeserving of my . There were a number of precipitating events that led to me being here. Pt stated I've lost interest in my hobbies and all I really want to do is sleep but I can't. Pt denies HI/AH/VH and reports feeling safe on the unit. Pt reports passive SI but states I have no plan to do anything to myself here or anywhere. Pt reports not sleeping well. Pt states I think I take medication for that but I wouldn't be able to tell you. I get confused sometimes. Pt stated I was really convinced the police were going to come through the doors of my house. I can't even be mad at my and my son, they were concerned about me. Pt reports that he believes he has recently lost weight d/t recent stressful events that I can't talk about now. Pt no changes in appetite despite suspected recent weight loss. pt has no physical complaints at this time. Pt is on 5 minute checks per protocol.
[2025-10-03 20:00] VITALS: BP 121/59; PULSE 69; RESP 18; TEMP 36.6; O2SAT 97
[2025-10-04 08:25] VITALS: BP 160/74; PULSE 74; RESP 20; TEMP 37.3; O2SAT 96
[2025-10-04] MEDS: Metoprolol Succinate ER 25 MG TAB.ER.24H PO (08:28)
--- NOTE | 2025-10-04 09:41 | HO.PM.IMCN ---
History of Present Illness Data of Consult Service Date: 10/04/25 Primary Care Provider: Obdulia Pace DO HPI Reason for consult: Medical H&P 72-year-old male with a past medical history of hypertension, sleep disturbances, depression, BPH presented to the emergency room with 6 months of increasing depression, poor sleep and racing thoughts. In the ED his lab work revealed no leukocytosis, mild anemia. CMP without any electrolyte imbalances, no liver or renal dysfunction. Negative EtOH. Urine without evidence of infection. U tox negative. Head CT negative for any acute abnormalities. EKG with normal sinus rhythm. On exam he denies any medical concerns. Reports that he takes lisinopril for his blood pressure. Denies any shortness of breath, dizziness, lightheadedness, abdominal pain, loss of appetite, nausea, vomiting or diarrhea. Review of Systems Review of Systems: Patient has no acute medical complaints at this time All other systems are reviewed and are negative PMFSH Medical History (Updated 10/04/25 @ 14:33 by Monalisa Owens DNP) Depression Insomnia HTN (hypertension) BPH (benign prostatic hyperplasia) Social History (Updated 10/02/25 @ 13:46 by Mery Olguin DO) Household Members: Spouse Housing: House Do you presently have visiting nurse or other home services: No Alcohol intake: former Patient Tobacco Use Status: Never used Tobacco Smoked in Last 30 Days: No e-Cigarette/Vaping Use: Never Used Use of substances other than those prescribed or required for medical reasons: No Currently Displaying Signs/Symptoms of Drug Intoxication Withdrawal: No Have you been hit, kicked, punched, or otherwise hurt by someone within the past year? If so, by whom?: No Do you feel safe in your current relationship?: Yes Is there a partner from a previous relationship who is making you feel unsafe now?: No Are you made to feel afraid or neglected: No Advance Directives: Yes Advance Directives Information Provided: Yes Advance Directives on File: No Do you have thoughts of harming others: None Do you have a plan to hurt others: No Plan Recently lost weight without trying: Unsure How much weight loss: Unsure Eating poorly because of decreased appetite: No Nutrition screen score: 4 Nutrition Risks: No Nutritional Risk Poor oral hygiene: No Meds Allergies Allergy/AdvReac Type Severity Reaction Status Date / Time No Known Allergies Allergy Verified 10/02/25 12:16 Active Medications: Current Medications Acetaminophen (Acetaminophen 325 Mg Tablet) 650 mg PO Q6H PRN PRN Reason: Headache/Pain, Scale 1-10 Al Hydroxide/Mg Hydroxide (Magnesium Hydrox/Alum Hydrox 30 Ml Oral.Susp) 30 ml PO Q6H PRN PRN Reason: Heartburn/Nausea Cyanocobalamin (Cyanocobalamin (Vitamin B-12) 1,000 Mcg Tablet) 1,000 mcg PO DAILY [facility] Last Admin: 10/04/25 08:27 Dose: 1,000 mcg Hydroxyzine HCl (Hydroxyzine Hcl 25 Mg Tablet) 25 mg PO Q6H PRN PRN Reason: mild anxiety Lisinopril (Lisinopril 20 Mg Tablet) 20 mg PO DAILY [facility]; Protocol Last Admin: 10/04/25 08:27 Dose: 20 mg Magnesium Hydroxide (Milk Of Magnesia 30 Ml Oral.Susp) 30 ml PO DAILY PRN PRN Reason: Constipation Metoprolol Succinate (Metoprolol Succinate Er 25 Mg Tab.Er.24h) 25 mg PO DAILY [facility]; Protocol Last Admin: 10/04/25 08:28 Dose: 25 mg Mirtazapine (Mirtazapine 15 Mg Tablet) 15 mg PO BEDTIME [facility] Last Admin: 10/03/25 20:39 Dose: 15 mg Sertraline HCl (Sertraline Hcl 100 Mg Tablet) 100 mg PO DAILY [facility] Last Admin: 10/04/25 08:28 Dose: 100 mg Trazodone HCl (Trazodone Hcl 50 Mg Tablet) 50 mg PO BEDTIME MRX1 PRN PRN Reason: Insomnia Home Medications ?Medication ?Instructions ?Recorded ?Confirmed ?Last Taken ?Type cyanocobalamin (vitamin B-12) 1,000 mcg sublingual DAILY 10/02/25 10/02/25 10/01/25 History 1,000 mcg sublingual tablet lisinopril 20 mg tablet 20 mg PO DAILY 10/02/25 10/02/25 10/01/25 History metoprolol succinate 25 mg 25 mg PO DAILY 10/02/25 10/02/25 10/01/25 History tablet,extended release 24 hr mirtazapine 15 mg tablet 15 mg PO BEDTIME 10/02/25 10/02/25 10/01/25 History sertraline 100 mg tablet 100 mg PO DAILY 10/02/25 10/02/25 10/01/25 History Physical Exam Vital Signs and Narrative: Vital Signs: Last Vital Signs Temp 99.1 F 10/04/25 08:25 Pulse 74 10/04/25 08:25 Resp 20 10/04/25 08:25 BP 160/74 H 10/04/25 08:25 Pulse Ox 96 10/04/25 08:25 O2 Del Method Room Air 10/04/25 08:25 BMI result Body Mass Index 29.8 Appearance: Alert. Oriented X3. No acute distress. Poor eye contact, quiet. Eyes: Pupils equal, round and reactive to light. ENT: MMM Neck: Normal inspection. Neck supple. CVS: Normal heart rate and rhythm. S1, S2 Respiratory: No respiratory distress. Lungs clear. Abdomen: Soft and nontender. +BS times 4 Skin: Skin warm and dry. Normal skin color. Extremities: No lower extremity edema. Neuro: Oriented X 3. No motor deficit. No sensory deficit. CN2-12 intact Psych: Withdrawn, quiet Results Labs 10/02/25 12:41 10/02/25 12:41 Assessment and Plan (1) HTN (hypertension): Status: Acute Plan 80-year-old male with past medical history listed below presented to the ED with increased depression, sleeplessness and racing thoughts. He is now admitted to inpatient psychiatry for stabilization. Depression/sleep disturbances Treatment per psychiatric team Hypertension Continue lisinopril If blood pressure continues to be elevated we will adjust medications Patient's blood pressure 160/74 this morning at 08:25. Patient received his medicine at 08:27. BPH Continue to monitor voiding pattern If patient experiences difficulty voiding notify provider. Thank you for allowing me to participate in the care of this patient. Will follow with you, please notify medical provider with any changes in condition or concerns.
[2025-10-04 20:00] VITALS: BP 128/66; PULSE 73; RESP 18; TEMP 37.4
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
[2025-10-05 08:00] VITALS: BP 126/65; PULSE 62; TEMP 36.7; O2SAT 98
[2025-10-05 08:17] LABS: Folate 10.2 ng/mL (> or = 4.0); Vitamin B12 434 pg/mL (200-900)
[2025-10-05 08:21] LABS: Alanine Aminotransferase 27 U/L (0-40); Albumin Level 4.1 g/dL (3.5-5.0); Alkaline Phosphatase 72 U/L (39-117); Anion Gap 12 (12-20); Aspartate Amino Transferase 31 U/L (5-37); Blood Urea Nitrogen 21 mg/dL (9-16); Calcium 9.4 mg/dL (8.4-10.2); Carbon Dioxide 26 mmol/L (22-29); Chloride 108 mmol/L (96-108); Cholesterol 226 mg/dL (<200); Creatinine Clr Calc Pharmacy 86.2; Estimated Glomerular Filt Rate > 60; HDL Cholesterol 47 mg/dL (>40); Potassium 4.3 mmol/L (3.3-5.1); Sodium 142 mmol/L (135-145); Thyroid Stimulating Hormone 0.93 uIU/mL (0.32-4.0); Total Protein 7.1 g/dL (6.5-8.0); Triglycerides 93 mg/dL (<150)
[2025-10-05] MEDS: Metoprolol Succinate ER 25 MG TAB.ER.24H PO (09:11)
[2025-10-05 09:21] VITALS: BMI 27.6
--- NOTE | 2025-10-05 11:59 | HO.PSYCHPN ---
Subjective Subjective Date of Service: 10/05/25 Reason For Visit: SI,confusion, inability to function Healthcare Proxy: Yes Interim History: Less disorganized, sleepy, eating OK Review of Systems Review of Systems Less confused and anxious Mental Status Exam Mental Status Exam Patient Appearance: Fatigued Level of Consciousness: Awake Diagnostics Vital Signs (24Hr): Vital Signs - 24 hr 10/04/25 20:00 10/05/25 08:00 Temperature 99.3 F 98.1 F Pulse Rate 73 62 Respiratory Rate 18 Blood Pressure 128/66 126/65 Pulse Oximetry 98 Oxygen Delivery Method Room Air BMI result Body Mass Index 27.6 Labs 10/02/25 12:41 10/05/25 07:11 Labs: Laboratory Results - last 48 hr 10/05/25 10/05/25 07:11 07:12 Sodium 142 Potassium 4.3 Chloride 108 Carbon Dioxide 26 Anion Gap 12 BUN 21 H Creatinine 0.74 Estim Creat Clear Calc 86.2 Estimated GFR > 60 Random Glucose 108 Estimat Average Glucose 120 Hemoglobin A1c % 5.8 Calcium 9.4 D Total Bilirubin 0.9 AST 31 ALT 27 Alkaline Phosphatase 72 Total Protein 7.1 Albumin 4.1 Triglycerides 93 Cholesterol 226 H LDL Cholesterol, Calc 161 H HDL Cholesterol 47 Vitamin B12 434 Folate 10.2 TSH 0.93 Imaging Radiology Impressions: ITS Impressions Head CT 10/02/25 13:43 IMPRESSION: 1. No acute intracranial abnormality. 2. Partial opacification of the right maxillary sinus with likely old post traumatic changes to the posteroinferior sinus haider. Electronically signed by: Neptali Purcell MD 10/02/2025 02:05 PM [facility] Medications Medications Current Medications Acetaminophen (Acetaminophen 325 Mg Tablet) 650 mg PO Q6H PRN PRN Reason: Headache/Pain, Scale 1-10 Al Hydroxide/Mg Hydroxide (Magnesium Hydrox/Alum Hydrox 30 Ml Oral.Susp) 30 ml PO Q6H PRN PRN Reason: Heartburn/Nausea Cyanocobalamin (Cyanocobalamin (Vitamin B-12) 1,000 Mcg Tablet) 1,000 mcg PO DAILY [facility] Last Admin: 10/05/25 09:11 Dose: 1,000 mcg Hydroxyzine HCl (Hydroxyzine Hcl 25 Mg Tablet) 25 mg PO Q6H PRN PRN Reason: mild anxiety Lisinopril (Lisinopril 20 Mg Tablet) 20 mg PO DAILY [facility]; Protocol Last Admin: 10/05/25 09:12 Dose: 20 mg Magnesium Hydroxide (Milk Of Magnesia 30 Ml Oral.Susp) 30 ml PO DAILY PRN PRN Reason: Constipation Metoprolol Succinate (Metoprolol Succinate Er 25 Mg Tab.Er.24h) 25 mg PO DAILY [facility]; Protocol Last Admin: 10/05/25 09:11 Dose: 25 mg Mirtazapine (Mirtazapine 15 Mg Tablet) 15 mg PO BEDTIME [facility] Last Admin: 10/04/25 20:59 Dose: 15 mg Sertraline HCl (Sertraline Hcl 100 Mg Tablet) 100 mg PO DAILY [facility] Last Admin: 10/05/25 09:12 Dose: 100 mg Trazodone HCl (Trazodone Hcl 50 Mg Tablet) 50 mg PO BEDTIME MRX1 PRN PRN Reason: Insomnia Allergies Allergies Allergy/AdvReac Type Severity Reaction Status Date / Time No Known Allergies Allergy Verified 10/02/25 12:16 Assessment & Plan Assessment & Plan (1) HTN (hypertension): Status: Acute Code(s): I10 - Essential (primary) hypertension Plan 80-year-old male with past medical history listed below presented to the ED with increased depression, sleeplessness and racing thoughts. He is now admitted to inpatient psychiatry for stabilization. Depression/sleep disturbances Treatment per psychiatric team Hypertension Continue lisinopril If blood pressure continues to be elevated we will adjust medications Patient's blood pressure 160/74 this morning at 08:25. Patient received his medicine at 08:27. BPH Continue to monitor voiding pattern If patient experiences difficulty voiding notify provider. Thank you for allowing me to participate in the care of this patient. Will follow with you, please notify medical provider with any changes in condition or concerns. Time Spent With Patient Time: Total time managing care of this patient today ____ minutes.
--- NOTE | 2025-10-05 17:51 | P.PNPSI_ITS ---
Subjective Subjective Date of Service: 10/05/25 Reason For Visit: SI Subjective Notes: Conditional Voluntary Interim History: Pt slept through the night. Pt reports he has been very anxious and depressed. He reports he is not feeling well, emotionally but denies SI/HI. He reports he is worried about his , worries that she wouldn't be able to take care of the house. He is taking medications as prescribed. Mental Status Exam Mental Status Exam Narrative: Appearance: wearing casual clothing, good hygiene, in NAD Behavior: cooperative Psychomotor: no agitation or retardation noted Speech: clear, normal rate/rhythm/volume, spontaneous TP: linear TC: worried about his life, Mood: anxious SI: denies HI: denies VH/AH: none Delusions: paranoid delusions related to thinking police is after him Insight/judgment: impaired x 2 Memory/cog: alert, oriented x 3. pending MOCA/ACL. Diagnostics Vital Signs (24Hr): Vital Signs - 24 hr 10/04/25 20:00 10/05/25 08:00 Temperature 99.3 F 98.1 F Pulse Rate 73 62 Respiratory Rate 18 Blood Pressure 128/66 126/65 Pulse Oximetry 98 Oxygen Delivery Method Room Air BMI result Body Mass Index 27.6 Labs 10/02/25 12:41 10/05/25 07:11 Labs: Laboratory Results - last 48 hr 10/05/25 10/05/25 07:11 07:12 Sodium 142 Potassium 4.3 Chloride 108 Carbon Dioxide 26 Anion Gap 12 BUN 21 H Creatinine 0.74 Estim Creat Clear Calc 86.2 Estimated GFR > 60 Random Glucose 108 Estimat Average Glucose 120 Hemoglobin A1c % 5.8 Calcium 9.4 D Total Bilirubin 0.9 AST 31 ALT 27 Alkaline Phosphatase 72 Total Protein 7.1 Albumin 4.1 Triglycerides 93 Cholesterol 226 H LDL Cholesterol, Calc 161 H HDL Cholesterol 47 Vitamin B12 434 Folate 10.2 TSH 0.93 Imaging Radiology Impressions: ITS Impressions Head CT 10/02/25 13:43 IMPRESSION: 1. No acute intracranial abnormality. 2. Partial opacification of the right maxillary sinus with likely old post traumatic changes to the posteroinferior sinus haider. Electronically signed by: Neptali Purcell MD 10/02/2025 02:05 PM [facility] Medications Medications Current Medications Acetaminophen (Acetaminophen 325 Mg Tablet) 650 mg PO Q6H PRN PRN Reason: Headache/Pain, Scale 1-10 Al Hydroxide/Mg Hydroxide (Magnesium Hydrox/Alum Hydrox 30 Ml Oral.Susp) 30 ml PO Q6H PRN PRN Reason: Heartburn/Nausea Cyanocobalamin (Cyanocobalamin (Vitamin B-12) 1,000 Mcg Tablet) 1,000 mcg PO DAILY [facility] Last Admin: 10/05/25 09:11 Dose: 1,000 mcg Hydroxyzine HCl (Hydroxyzine Hcl 25 Mg Tablet) 25 mg PO Q6H PRN PRN Reason: mild anxiety Lisinopril (Lisinopril 20 Mg Tablet) 20 mg PO DAILY [facility]; Protocol Last Admin: 10/05/25 09:12 Dose: 20 mg Magnesium Hydroxide (Milk Of Magnesia 30 Ml Oral.Susp) 30 ml PO DAILY PRN PRN Reason: Constipation Metoprolol Succinate (Metoprolol Succinate Er 25 Mg Tab.Er.24h) 25 mg PO DAILY [facility]; Protocol Last Admin: 10/05/25 09:11 Dose: 25 mg Mirtazapine (Mirtazapine 15 Mg Tablet) 15 mg PO BEDTIME [facility] Last Admin: 10/04/25 20:59 Dose: 15 mg Sertraline HCl (Sertraline Hcl 100 Mg Tablet) 100 mg PO DAILY [facility] Last Admin: 10/05/25 09:12 Dose: 100 mg Trazodone HCl (Trazodone Hcl 50 Mg Tablet) 50 mg PO BEDTIME MRX1 PRN PRN Reason: Insomnia Allergies Allergies Allergy/AdvReac Type Severity Reaction Status Date / Time No Known Allergies Allergy Verified 10/02/25 12:16 Assessment & Plan Assessment & Plan (1) MDD (major depressive disorder), recurrent, severe, with psychosis: Status: Acute Code(s): F33.3 - Major depressive disorder, recurrent, severe with psychotic symptoms (2) HTN (hypertension): Status: Acute Code(s): I10 - Essential (primary) hypertension (3) Cognitive deficit with impaired psychomotor function: Status: Acute Code(s): R41.89 - Other symptoms and signs involving cognitive functions and awareness; R41.843 - Psychomotor deficit Plan Mr. Yost is a 80 year-old who came to ED due to increase depressed mood, paranoid delusions thinking police was going to shoot him. PLAN 10/05 continue current medications. He has been visible on the unit, still with paranoid ideas although not fully forthcoming. No behavioral concerns.Start risperidone 0.5mg po BID. continue sertraline and remeron 15mg po qhs. Reason for continued inpatient stay Substantial Risk for: inability to function Time Spent With Patient Time: Total time managing care of this patient today ____ minutes.
[2025-10-05 20:04] VITALS: BP 153/67; PULSE 54; RESP 15; TEMP 36.5; O2SAT 97
[2025-10-06 08:00] VITALS: BP 109/59; PULSE 79; RESP 17; TEMP 36.8; O2SAT 99
[2025-10-06] MEDS: Metoprolol Succinate ER 25 MG TAB.ER.24H PO (08:25)
--- NOTE | 2025-10-06 17:23 | HO.PSYCHPN ---
Subjective Subjective Reason For Visit: SI Diagnostics Vital Signs (24Hr): Vital Signs - 24 hr 10/05/25 20:04 10/06/25 08:00 Temperature 97.7 F 98.2 F Pulse Rate 54 79 Respiratory Rate 15 17 Blood Pressure 153/67 H 109/59 L Pulse Oximetry 97 99 Oxygen Delivery Method Room Air Room Air BMI result Body Mass Index 27.6 Labs 10/02/25 12:41 10/05/25 07:11 Labs: Laboratory Results - last 48 hr 10/05/25 10/05/25 07:11 07:12 Sodium 142 Potassium 4.3 Chloride 108 Carbon Dioxide 26 Anion Gap 12 BUN 21 H Creatinine 0.74 Estim Creat Clear Calc 86.2 Estimated GFR > 60 Random Glucose 108 Estimat Average Glucose 120 Hemoglobin A1c % 5.8 Calcium 9.4 D Total Bilirubin 0.9 AST 31 ALT 27 Alkaline Phosphatase 72 Total Protein 7.1 Albumin 4.1 Triglycerides 93 Cholesterol 226 H LDL Cholesterol, Calc 161 H HDL Cholesterol 47 Vitamin B12 434 Folate 10.2 TSH 0.93 Imaging Radiology Impressions: ITS Impressions Head CT 10/02/25 13:43 IMPRESSION: 1. No acute intracranial abnormality. 2. Partial opacification of the right maxillary sinus with likely old post traumatic changes to the posteroinferior sinus haider. Electronically signed by: Neptali Purcell MD 10/02/2025 02:05 PM [facility] Medications Medications Current Medications Acetaminophen (Acetaminophen 325 Mg Tablet) 650 mg PO Q6H PRN PRN Reason: Headache/Pain, Scale 1-10 Al Hydroxide/Mg Hydroxide (Magnesium Hydrox/Alum Hydrox 30 Ml Oral.Susp) 30 ml PO Q6H PRN PRN Reason: Heartburn/Nausea Cyanocobalamin (Cyanocobalamin (Vitamin B-12) 1,000 Mcg Tablet) 1,000 mcg PO DAILY [facility] Last Admin: 10/06/25 08:22 Dose: 1,000 mcg Hydroxyzine HCl (Hydroxyzine Hcl 25 Mg Tablet) 25 mg PO Q6H PRN PRN Reason: mild anxiety Lisinopril (Lisinopril 20 Mg Tablet) 20 mg PO DAILY [facility]; Protocol Last Admin: 10/06/25 08:25 Dose: 20 mg Lorazepam (Lorazepam 0.5 Mg Tablet) 0.5 mg PO Q8H PRN PRN Reason: Anxiety Magnesium Hydroxide (Milk Of Magnesia 30 Ml Oral.Susp) 30 ml PO DAILY PRN PRN Reason: Constipation Metoprolol Succinate (Metoprolol Succinate Er 25 Mg Tab.Er.24h) 25 mg PO DAILY [facility]; Protocol Last Admin: 10/06/25 08:25 Dose: 25 mg Mirtazapine (Mirtazapine 15 Mg Tablet) 15 mg PO BEDTIME [facility] Last Admin: 10/05/25 20:06 Dose: 15 mg Risperidone (Risperidone 0.5 Mg Tablet) 0.5 mg PO TID [facility] Last Admin: 10/06/25 14:47 Dose: 0.5 mg Sertraline HCl (Sertraline Hcl 50 Mg Tablet) 150 mg PO DAILY [facility] Trazodone HCl (Trazodone Hcl 50 Mg Tablet) 50 mg PO BEDTIME MRX1 PRN PRN Reason: Insomnia Allergies Allergies Allergy/AdvReac Type Severity Reaction Status Date / Time No Known Allergies Allergy Verified 10/02/25 12:16 Assessment & Plan Assessment & Plan (1) MDD (major depressive disorder), recurrent, severe, with psychosis: Status: Acute Code(s): F33.3 - Major depressive disorder, recurrent, severe with psychotic symptoms Assessment and Plan: SSRI recentlyadjusted, continue add Risperdal, risks/benefits/side effects/alternatives discussed with patient/family and determination made to (2) HTN (hypertension): Status: Acute Code(s): I10 - Essential (primary) hypertension (3) Cognitive deficit with impaired psychomotor function: Status: Acute Code(s): R41.89 - Other symptoms and signs involving cognitive functions and awareness; R41.843 - Psychomotor deficit Plan Mr. Yost is a 80 year-old who came to ED due to increase depressed mood, paranoid delusions thinking police was going to shoot him. PLAN 10/05 continue current medications. He has been visible on the unit, still with paranoid ideas although not fully forthcoming. No behavioral concerns.Start risperidone 0.5mg po BID. continue sertraline and remeron 15mg po qhs. Time Spent With Patient Time: Total time managing care of this patient today ____ minutes.
--- NOTE | 2025-10-06 18:36 | HO.PSYCHPN ---
Subjective Subjective Date of Service: 10/06/25 Reason For Visit: SI,confusion, inability to function Subjective Notes: Conditional Voluntary Healthcare Proxy: Yes Interim History: Pt in room, sitting in corner, apperars anxious, I cannot do it Denies SI/plan or intent Ruminative, appears anxious, depressed mood, med compliant Paranoid/suspicious/guarded Review of Systems Review of Systems Per medical Yes Unobtainable due to mental status and Other (limited, patient guarded, vague---ROS per medical/psych HPI) Constitutional: Reports as per HPI (see medicine evaluation) Eyes: Reports as per HPI Reports as per HPI Reports behavioral changes and Reports confusion Psychiatric: Reports abnormal sleep pattern, Reports anxiety, Reports behavioral changes, Reports change in appetite, Reports confusion, Reports depression, Reports difficulty concentrating, Reports hopelessness, Reports anhedonia, Reports paranoia, Reports hallucinations and Reports suicidal ideation (without current plan/intent---) Mental Status Exam Mental Status Exam Narrative: Appearance: wearing casual clothing, fair hygiene, avoids EC, sits hunched in corner of room Behavior: hypervigilant, apprehensive Psychomotor: no agitation, some had wringing Speech: hesitant, very limited answers, decreased production/short, low to normal volume TP: limited assessment due to short answers, appears goal directed TC: Persecutory delusional beliefs and rumination/preoccupied Mood/affect: anxious, depressed, constricted SI: denies current, does not rule out as option HI: denies VH/AH: none Delusions: paranoid delusions related to thinking police is after him, will be lost, house will burn Insight/judgment: impaired x 2 Memory/cog: alert, oriented x 3. pending MOCA/ACL. Diagnostics Vital Signs (24Hr): Vital Signs - 24 hr 10/05/25 20:04 10/06/25 08:00 Temperature 97.7 F 98.2 F Pulse Rate 54 79 Respiratory Rate 15 17 Blood Pressure 153/67 H 109/59 L Pulse Oximetry 97 99 Oxygen Delivery Method Room Air Room Air BMI result Body Mass Index 27.6 Labs 10/02/25 12:41 10/05/25 07:11 Labs: Laboratory Results - last 48 hr 10/05/25 10/05/25 07:11 07:12 Sodium 142 Potassium 4.3 Chloride 108 Carbon Dioxide 26 Anion Gap 12 BUN 21 H Creatinine 0.74 Estim Creat Clear Calc 86.2 Estimated GFR > 60 Random Glucose 108 Estimat Average Glucose 120 Hemoglobin A1c % 5.8 Calcium 9.4 D Total Bilirubin 0.9 AST 31 ALT 27 Alkaline Phosphatase 72 Total Protein 7.1 Albumin 4.1 Triglycerides 93 Cholesterol 226 H LDL Cholesterol, Calc 161 H HDL Cholesterol 47 Vitamin B12 434 Folate 10.2 TSH 0.93 Imaging Radiology Impressions: ITS Impressions Head CT 10/02/25 13:43 IMPRESSION: 1. No acute intracranial abnormality. 2. Partial opacification of the right maxillary sinus with likely old post traumatic changes to the posteroinferior sinus haider. Electronically signed by: Neptali Purcell MD 10/02/2025 02:05 PM [facility] [place] Medications Medications Current Medications Acetaminophen (Acetaminophen 325 Mg Tablet) 650 mg PO Q6H PRN PRN Reason: Headache/Pain, Scale 1-10 Al Hydroxide/Mg Hydroxide (Magnesium Hydrox/Alum Hydrox 30 Ml Oral.Susp) 30 ml PO Q6H PRN PRN Reason: Heartburn/Nausea Cyanocobalamin (Cyanocobalamin (Vitamin B-12) 1,000 Mcg Tablet) 1,000 mcg PO DAILY [facility] Last Admin: 10/06/25 08:22 Dose: 1,000 mcg Hydroxyzine HCl (Hydroxyzine Hcl 25 Mg Tablet) 25 mg PO Q6H PRN PRN Reason: mild anxiety Lisinopril (Lisinopril 20 Mg Tablet) 20 mg PO DAILY [facility]; Protocol Last Admin: 10/06/25 08:25 Dose: 20 mg Lorazepam (Lorazepam 0.5 Mg Tablet) 0.5 mg PO Q8H PRN PRN Reason: Anxiety Magnesium Hydroxide (Milk Of Magnesia 30 Ml Oral.Susp) 30 ml PO DAILY PRN PRN Reason: Constipation Metoprolol Succinate (Metoprolol Succinate Er 25 Mg Tab.Er.24h) 25 mg PO DAILY [facility]; Protocol Last Admin: 10/06/25 08:25 Dose: 25 mg Mirtazapine (Mirtazapine 15 Mg Tablet) 15 mg PO BEDTIME [facility]Z Last Admin: 10/05/25 20:06 Dose: 15 mg Risperidone (Risperidone 0.5 Mg Tablet) 0.5 mg PO TID [facility]Z Last Admin: 10/06/25 14:47 Dose: 0.5 mg Sertraline HCl (Sertraline Hcl 50 Mg Tablet) 150 mg PO DAILY [facility] Trazodone HCl (Trazodone Hcl 50 Mg Tablet) 50 mg PO BEDTIME MRX1 PRN PRN Reason: Insomnia Allergies Allergies Allergy/AdvReac Type Severity Reaction Status Date / Time No Known Allergies Allergy Verified 10/02/25 12:16 Assessment & Plan Assessment & Plan (1) MDD (major depressive disorder), recurrent, severe, with psychosis: Status: Acute Code(s): F33.3 - Major depressive disorder, recurrent, severe with psychotic symptoms Assessment and Plan: SSRI recently adjusted add Risperdal, risks/benefits/side effects/alternatives discussed with patient/family and determination made to start and titrate 10/06 Increase Sertraline, Remeron, Risperdal titration (2) HTN (hypertension): Status: Acute Code(s): I10 - Essential (primary) hypertension (3) Cognitive deficit with impaired psychomotor function: Status: Acute Code(s): R41.89 - Other symptoms and signs involving cognitive functions and awareness; R41.843 - Psychomotor deficit Plan Mr. Yost is a 80 year-old who came to ED due to increase depressed mood, paranoid delusions thinking police was going to shoot him. PLAN 10/05 continue current medications. He has been visible on the unit, still with paranoid ideas although not fully forthcoming. No behavioral concerns.Start risperidone 0.5mg po BID. continue sertraline and remeron 15mg po qhs. Reason for continued inpatient stay Substantial Risk for: harm to self, inability to function, rapid decompensation and other (severe impairment in judgment due to sxs mental illness, poor insight, risk factors for suicide) Time Spent With Patient Time: Total time managing care of this patient today _30___ minutes.
[2025-10-06 20:00] VITALS: BP 123/58; PULSE 69; RESP 16; TEMP 36.3; O2SAT 98
[2025-10-07 08:10] VITALS: BP 111/60; PULSE 98; RESP 16; TEMP 36.4; O2SAT 96
[2025-10-07] MEDS: Metoprolol Succinate ER 25 MG TAB.ER.24H PO (08:59)
--- NOTE | 2025-10-07 09:15 | P.PNPSI_ITS ---
Subjective Subjective Date of Service: 10/07/25 Reason For Visit: SI Subjective Notes: Conditional Voluntary Healthcare Proxy: Yes Interim History: Patient remains very guarded and concerned and anxious. Did not sleep last night. Was able to acknowledge that concerns regarding the police previously were not true a fallacy . Still some paranoia regarding staff. Agreed to have Risperdal dosing adjusted to help with sleep. Medication Compliance: Yes Side effects from medications: No Attending Groups: No Review of Systems Acute medical concerns: No Review of Systems Review of Systems nothing acute Mental Status Exam Mental Status Exam Narrative: Appearance: wearing casual clothing, fair hygiene, avoids/intermittent EC, Pacing in room Behavior: hypervigilant, apprehensive Psychomotor: no agitation, some had wringing Speech: hesitant, limited answers, decreased/short, low to normal volume TP: appears linear TC: Persecutory delusional beliefs and rumination/preoccupied Mood/affect: anxious, depressed, constricted SI: denies HI: denies VH/AH: none Delusions: paranoid delusions related to thinking police is after him Insight/judgment: impaired x 2 Memory/cog: alert, oriented x 3. pending MOCA/ACL. Diagnostics Vital Signs (24Hr): Vital Signs - 24 hr 10/06/25 20:00 10/07/25 08:10 Temperature 97.3 F 97.5 F Pulse Rate 69 98 Respiratory Rate 16 16 Blood Pressure 123/58 L 111/60 Pulse Oximetry 98 96 Oxygen Delivery Method Room Air Room Air BMI result Body Mass Index 27.6 Labs 10/02/25 12:41 10/05/25 07:11 Imaging Radiology Impressions: ITS Impressions Head CT 10/02/25 13:43 IMPRESSION: 1. No acute intracranial abnormality. 2. Partial opacification of the right maxillary sinus with likely old post traumatic changes to the posteroinferior sinus haider. Electronically signed by: Neptali Purcell MD 10/02/2025 02:05 PM [facility] [place] Medications Medications Current Medications Acetaminophen (Acetaminophen 325 Mg Tablet) 650 mg PO Q6H PRN PRN Reason: Headache/Pain, Scale 1-10 Al Hydroxide/Mg Hydroxide (Magnesium Hydrox/Alum Hydrox 30 Ml Oral.Susp) 30 ml PO Q6H PRN PRN Reason: Heartburn/Nausea Cyanocobalamin (Cyanocobalamin (Vitamin B-12) 1,000 Mcg Tablet) 1,000 mcg PO DAILY [facility] Last Admin: 10/07/25 08:59 Dose: 1,000 mcg Hydroxyzine HCl (Hydroxyzine Hcl 25 Mg Tablet) 25 mg PO Q6H PRN PRN Reason: mild anxiety Lisinopril (Lisinopril 20 Mg Tablet) 20 mg PO DAILY [facility]; Protocol Last Admin: 10/07/25 08:59 Dose: 20 mg Lorazepam (Lorazepam 0.5 Mg Tablet) 0.5 mg PO Q8H PRN PRN Reason: Anxiety Magnesium Hydroxide (Milk Of Magnesia 30 Ml Oral.Susp) 30 ml PO DAILY PRN PRN Reason: Constipation Metoprolol Succinate (Metoprolol Succinate Er 25 Mg Tab.Er.24h) 25 mg PO DAILY [facility]; Protocol Last Admin: 10/07/25 08:59 Dose: 25 mg Mirtazapine (Mirtazapine 15 Mg Tablet) 15 mg PO BEDTIME [facility]Z Last Admin: 10/06/25 20:35 Dose: 15 mg Risperidone (Risperidone 0.5 Mg Tablet) 0.5 mg PO TID [facility] Last Admin: 10/07/25 08:59 Dose: 0.5 mg Sertraline HCl (Sertraline Hcl 50 Mg Tablet) 150 mg PO DAILY [facility] Last Admin: 10/07/25 08:59 Dose: 150 mg Trazodone HCl (Trazodone Hcl 50 Mg Tablet) 50 mg PO BEDTIME MRX1 PRN PRN Reason: Insomnia Allergies Allergies Allergy/AdvReac Type Severity Reaction Status Date / Time No Known Allergies Allergy Verified 10/02/25 12:16 Assessment & Plan Assessment & Plan (1) MDD (major depressive disorder), recurrent, severe, with psychosis: Status: Acute Code(s): F33.3 - Major depressive disorder, recurrent, severe with psychotic symptoms Assessment and Plan: SSRI recentlyadjusted, continue add Risperdal, risks/benefits/side effects/alternatives discussed with patient/family and determination made to (2) HTN (hypertension): Status: Acute Code(s): I10 - Essential (primary) hypertension (3) Cognitive deficit with impaired psychomotor function: Status: Acute Code(s): R41.89 - Other symptoms and signs involving cognitive functions and awareness; R41.843 - Psychomotor deficit Plan Mr. Yost is a 80 year-old who came to ED due to increase depressed mood, paranoid delusions thinking police was going to shoot him. PLAN 10/05 continue current medications. He has been visible on the unit, still with paranoid ideas although not fully forthcoming. No behavioral concerns.Start risperidone 0.5mg po BID. continue sertraline and remeron 15mg po qhs. 10/07/2025: Increase total daily dose of Risperdal from 0.5 mg t.i.d. to 0.5 mg morning and 1.5 mg at bedtime, for paranoia and sleep disturbance. Reason for continued inpatient stay Substantial Risk for: inability to function Time Spent With Patient Time: Total time managing care of this patient today ____ minutes.
[2025-10-07 20:00] VITALS: BP 114/57; PULSE 68; RESP 16; TEMP 36.7; O2SAT 96
--- NOTE | 2025-10-08 07:48 | P.PNPSI_ITS ---
Subjective Subjective Date of Service: 10/08/25 Reason For Visit: SI Subjective Notes: Conditional Voluntary Healthcare Proxy: Yes Interim History: sleep was much better last night, with approximately 5 hours total. Did take increase dose of Risperdal yesterday. Attended some groups today. Still appears guarded, concerned and anxious with some paranoia regarding staff. Denied depression. No SI. No med concerns. Did acknowledge sleep pattern improved. Medication Compliance: Yes Side effects from medications: No Attending Groups: Intermittent Review of Systems Acute medical concerns: No Review of Systems Review of Systems nothing acute Mental Status Exam Mental Status Exam Narrative: Appearance: wearing casual clothing, fair hygiene, avoids/intermittent EC, did attend group today Behavior: hypervigilant, apprehensive Psychomotor: no agitation, some had wringing Speech: hesitant, limited answers, decreased/short, low to normal volume TP: appears linear TC: Less intense persecutory delusional beliefs and rumination/preoccupied Mood/affect: less anxious and depressed SI: denies HI: denies VH/AH: none Delusions: less intense paranoid believes regarding the police Insight/judgment: impaired x 2 Memory/cog: alert, oriented x 3. pending MOCA/ACL. Patient Appearance: Fatigued and Disheveled Patient Orientation: Person, Place, Time and Situation Level of Consciousness: Awake and Alert Patient Behavior: Guarded, Suspicious, Fearful, Fatigued and Poor Eye Contact Mood Description: Suspicious, Anxious and Apprehensive Affect Description: Constricted and Anxious Ability to Follow Directions: Poor (variable, depending on specific task/direction) Speech Pattern: Impoverished, Soft-Spoken, Mumbled, Delayed and Long Pauses Diagnostics Vital Signs (24Hr): Vital Signs - 24 hr 10/07/25 08:10 10/07/25 20:00 Temperature 97.5 F 98.0 F Pulse Rate 98 68 Respiratory Rate 16 16 Blood Pressure 111/60 114/57 L Pulse Oximetry 96 96 Oxygen Delivery Method Room Air Room Air BMI result Body Mass Index 27.6 Labs 10/02/25 12:41 10/05/25 07:11 Imaging Radiology Impressions: ITS Impressions Head CT 10/02/25 13:43 IMPRESSION: 1. No acute intracranial abnormality. 2. Partial opacification of the right maxillary sinus with likely old post traumatic changes to the posteroinferior sinus haider. Electronically signed by: Neptali Purcell MD 10/02/2025 02:05 PM [facility] Medications Medications Current Medications Acetaminophen (Acetaminophen 325 Mg Tablet) 650 mg PO Q6H PRN PRN Reason: Headache/Pain, Scale 1-10 Al Hydroxide/Mg Hydroxide (Magnesium Hydrox/Alum Hydrox 30 Ml Oral.Susp) 30 ml PO Q6H PRN PRN Reason: Heartburn/Nausea Cyanocobalamin (Cyanocobalamin (Vitamin B-12) 1,000 Mcg Tablet) 1,000 mcg PO DAILY [facility] Last Admin: 10/07/25 08:59 Dose: 1,000 mcg Hydroxyzine HCl (Hydroxyzine Hcl 25 Mg Tablet) 25 mg PO Q6H PRN PRN Reason: mild anxiety Last Admin: 10/07/25 17:15 Dose: 25 mg Lisinopril (Lisinopril 20 Mg Tablet) 20 mg PO DAILY [facility]; Protocol Last Admin: 10/07/25 08:59 Dose: 20 mg Lorazepam (Lorazepam 0.5 Mg Tablet) 0.5 mg PO Q8H PRN PRN Reason: Anxiety Magnesium Hydroxide (Milk Of Magnesia 30 Ml Oral.Susp) 30 ml PO DAILY PRN PRN Reason: Constipation Metoprolol Succinate (Metoprolol Succinate Er 25 Mg Tab.Er.24h) 25 mg PO DAILY [facility]; Protocol Last Admin: 10/07/25 08:59 Dose: 25 mg Mirtazapine (Mirtazapine 15 Mg Tablet) 15 mg PO BEDTIME [facility] Last Admin: 10/07/25 20:34 Dose: 15 mg Risperidone (Risperidone 0.5 Mg Tablet) 0.5 mg PO DAILY [facility] Risperidone (Risperidone 0.5 Mg Tablet) 1.5 mg PO BEDTIME LIZ Last Admin: 10/07/25 20:34 Dose: 1.5 mg Sertraline HCl (Sertraline Hcl 50 Mg Tablet) 150 mg PO DAILY [facility] Last Admin: 10/07/25 08:59 Dose: 150 mg Trazodone HCl (Trazodone Hcl 50 Mg Tablet) 50 mg PO BEDTIME MRX1 PRN PRN Reason: Insomnia Last Admin: 10/07/25 20:34 Dose: 50 mg Allergies Allergies Allergy/AdvReac Type Severity Reaction Status Date / Time No Known Allergies Allergy Verified 10/02/25 12:16 Assessment & Plan Assessment & Plan (1) MDD (major depressive disorder), recurrent, severe, with psychosis: Status: Acute Code(s): F33.3 - Major depressive disorder, recurrent, severe with psychotic symptoms Assessment and Plan: SSRI recentlyadjusted, continue add Risperdal, risks/benefits/side effects/alternatives discussed with patient/family and determination made to (2) HTN (hypertension): Status: Acute Code(s): I10 - Essential (primary) hypertension (3) Cognitive deficit with impaired psychomotor function: Status: Acute Code(s): R41.89 - Other symptoms and signs involving cognitive functions and awareness; R41.843 - Psychomotor deficit Plan Mr. Yost is a 80 year-old who came to ED due to increase depressed mood, paranoid delusions thinking police was going to shoot him. PLAN 10/05 continue current medications. He has been visible on the unit, still with paranoid ideas although not fully forthcoming. No behavioral concerns.Start risperidone 0.5mg po BID. continue sertraline and remeron 15mg po qhs. 10/07/2025: Increase total daily dose of Risperdal from 0.5 mg t.i.d. to 0.5 mg morning and 1.5 mg at bedtime, for paranoia and sleep disturbance. 10/08: No med changes. Reason for continued inpatient stay Substantial Risk for: inability to function and rapid decompensation Time Spent With Patient Time: Total time managing care of this patient today ____ minutes.
[2025-10-08 08:15] VITALS: BP 129/60; PULSE 76; RESP 16; TEMP 36.8; O2SAT 97
[2025-10-08] MEDS: Metoprolol Succinate ER 25 MG TAB.ER.24H PO (08:58)
[2025-10-09] MEDS: Metoprolol Succinate ER 25 MG TAB.ER.24H PO (09:12)
--- NOTE | 2025-10-09 09:30 | HO.PSYCHPN ---
Subjective Subjective Date of Service: 10/09/25 Reason For Visit: SI,confusion, inability to function, sever depress Subjective Notes: [place] Warning and Conditional Voluntary Healthcare Proxy: Yes Interim History: Had a difficult weekend, poor appetite, did not sleep at all, up appeared frightened and vigilant. Refused Risperidone over the weekend and again this am. Took Ativan after much prompting by RN Stated he did not like how Risperdal made him feel. Met for extended time today,patient provided info about past episode of severe depression (not as bad as current) but mainly focused on delusional beliefs and fears Medication Compliance: No (refusing Risperdal, did not use Ativan over the weekend) Diagnostics Vital Signs (24Hr): BMI result Body Mass Index 27.6 Labs 10/13/25 07:27 10/12/25 11:44 Imaging Radiology Impressions: ITS Impressions Head CT 10/02/25 13:43 IMPRESSION: 1. No acute intracranial abnormality. 2. Partial opacification of the right maxillary sinus with likely old post traumatic changes to the posteroinferior sinus haider. Electronically signed by: Neptali Purcell MD 10/02/2025 02:05 PM [facility] Medications Medications Current Medications Acetaminophen (Acetaminophen 325 Mg Tablet) 650 mg PO Q6H PRN PRN Reason: Headache/Pain, Scale 1-10 Al Hydroxide/Mg Hydroxide (Magnesium Hydrox/Alum Hydrox 30 Ml Oral.Susp) 30 ml PO Q6H PRN PRN Reason: Heartburn/Nausea Cyanocobalamin (Cyanocobalamin (Vitamin B-12) 1,000 Mcg Tablet) 1,000 mcg PO DAILY [facility] Last Admin: 10/09/25 09:12 Dose: 1,000 mcg Lisinopril (Lisinopril 20 Mg Tablet) 20 mg PO DAILY [facility]; Protocol Last Admin: 10/09/25 09:12 Dose: 20 mg Lorazepam (Lorazepam 0.5 Mg Tablet) 0.5 mg PO Q8H PRN PRN Reason: Anxiety Lorazepam (Lorazepam 0.5 Mg Tablet) 0.5 mg PO TID [facility] Last Admin: 10/09/25 09:21 Dose: 0.5 mg Magnesium Hydroxide (Milk Of Magnesia 30 Ml Oral.Susp) 30 ml PO DAILY PRN PRN Reason: Constipation Metoprolol Succinate (Metoprolol Succinate Er 25 Mg Tab.Er.24h) 25 mg PO DAILY [facility]; Protocol Last Admin: 10/09/25 09:12 Dose: 25 mg Mirtazapine (Mirtazapine 7.5 Mg Tablet) 22.5 mg PO BEDTIME [facility]Z Risperidone (Risperidone 0.5 Mg Tablet) 0.5 mg PO DAILY [facility] Last Admin: 10/09/25 09:12 Dose: Not Given Risperidone (Risperidone 0.5 Mg Tablet) 1.5 mg PO BEDTIME [facility] Last Admin: 10/08/25 23:06 Dose: Not Given Sertraline HCl (Sertraline Hcl 50 Mg Tablet) 150 mg PO DAILY [facility] Last Admin: 10/09/25 09:12 Dose: 150 mg Allergies Allergies Allergy/AdvReac Type Severity Reaction Status Date / Time No Known Allergies Allergy Verified 10/02/25 12:16 Assessment & Plan Assessment & Plan (1) MDD (major depressive disorder), recurrent, severe, with psychosis: Status: Acute Code(s): F33.3 - Major depressive disorder, recurrent, severe with psychotic symptoms Assessment and Plan: SSRI recently adjusted add Risperdal, risks/benefits/side effects/alternatives discussed with patient/family and determination made to start and titrate 10/06 Increase Sertraline, Remeron, Risperdal titration 10/09 Ativan ordered as PRN not taken Add scheduled Ativan to acutely manage level of anxiety Adjust Risperdal and Mirtazapine Change to q5 monitoring (2) Cognitive deficit with impaired psychomotor function: Status: Acute Code(s): R41.89 - Other symptoms and signs involving cognitive functions and awareness; R41.843 - Psychomotor deficit (3) HTN (hypertension): Status: Acute Code(s): I10 - Essential (primary) hypertension Assessment and Plan: per medicine Plan Mr. Yost is a 80 year-old who came to ED due to increase depressed mood, paranoid delusions thinking police was going to shoot him. PLAN 10/05 continue current medications. He has been visible on the unit, still with paranoid ideas although not fully forthcoming. No behavioral concerns.Start risperidone 0.5mg po BID. continue sertraline and remeron 15mg po qhs. Patient educated on: diagnosis, medication risk/benefits, therapeutic strategies and medical condition Informed Consent: further education needed Reason for continued inpatient stay Substantial Risk for: harm to self, inability to function and rapid decompensation Time Spent With Patient Time: Total time managing care of this patient today ___25_ minutes.
--- NOTE | 2025-10-09 09:40 | PC.NURSE ---
Dimitry refused 08:00 vitals ThursdayOctober 09, scheduled antihypertensives given per provider order.
[2025-10-09 20:07] VITALS: BP 96/49; PULSE 68; RESP 15; TEMP 36.3; O2SAT 97
[2025-10-10] MEDS: Metoprolol Succinate ER 25 MG TAB.ER.24H PO (09:25)
--- NOTE | 2025-10-10 17:28 | P.PNPSI_ITS ---
Subjective Subjective Date of Service: 10/10/25 Reason For Visit: SI,confusion, inability to function, sever depress Subjective Notes: Conditional Voluntary Healthcare Proxy: Yes Interim History: Met for extended visit (patient has difficulty speaking directly, admitting to difficulties and becomes acutely preoccupied/ruminative Has noted decline in functioning himself. States mother had dementia and very reluctantly acknowledges that this is part of his fears. extensive persecutory delusional system, states he was not up all night but things are going on... and he feels at ongoing high risk Discussed work up/MRI etc which he agrees to do. Met who was in to visit and updated on presentation, tx and work up in process Ongoing delusional beliefs but did not stay up Medication Compliance: Intermittent Attending Groups: No Review of Systems Medical Review of Systems: unchanged Review of Systems Review of Systems Denies any shortness of breath, chest pain, headaches, dysuria, abdominal pain or discomfort, nausea, vomiting or diarrhea. Denies fever or chills. Yes Unobtainable due to mental status and Other (limited, patient guarded, vague---ROS per medical/psych HPI) Constitutional: Reports as per HPI (see medicine evaluation) Eyes: Reports as per HPI Reports as per HPI Reports behavioral changes and Reports confusion Psychiatric: Reports abnormal sleep pattern, Reports anxiety, Reports behavioral changes, Reports change in appetite, Reports confusion, Reports depression, Reports difficulty concentrating, Reports hopelessness, Reports anhedonia, Reports paranoia, Reports hallucinations and Reports suicidal ideation (without current plan/intent---) Mental Status Exam Mental Status Exam Narrative: Appearance: dishevelled,appears frazzled Behavior: cooperative Memory/cog: alert, oriented to person, place, date Psychomotor: restless, fidgets Speech: clear, normal rate/rhythm/volume, spontaneous TP: linear, long responses, latency, hesitant TC: persecutory delusions, ruminative, worried about his life, Mood: just don't know anxious Affect: depressed constricted SI: denies, but cannot discount HI: denies VH/AH: misperceptions Delusions: (+) persecutory Insight/judgment: impaired Diagnostics Vital Signs (24Hr): Vital Signs - 24 hr 10/09/25 20:07 Temperature 97.3 F Pulse Rate 68 Respiratory Rate 15 Blood Pressure 96/49 L Pulse Oximetry 97 Oxygen Delivery Method Room Air BMI result Body Mass Index 27.6 Labs 10/13/25 07:27 10/12/25 11:44 Imaging Radiology Impressions: ITS Impressions Head CT 10/02/25 13:43 IMPRESSION: 1. No acute intracranial abnormality. 2. Partial opacification of the right maxillary sinus with likely old post traumatic changes to the posteroinferior sinus haider. Electronically signed by: Neptali Purcell MD 10/02/2025 02:05 PM EST RP Chest X-Ray 10/10/25 13:43 IMPRESSION: No metallic foreign body. EXAMINATION: XR ABDOMEN KUB CLINICAL INDICATION: pre MRI COMPARISON: None available. TECHNIQUE: AP view of the abdomen. FINDINGS: No metallic foreign body. No intestinal bowel obstruction. Multilevel thoracolumbar spondylosis. S-shaped curvature with a levoconvex curvature in the lower lumbar spine. Degenerative changes in the coxofemoral joints. IMPRESSION: No metallic foreign body. Electronically signed by: Patrick Fulton MD 10/10/2025 01:55 PM EST RP Abdomen X-Ray 10/10/25 13:46 IMPRESSION: No metallic foreign body. EXAMINATION: XR ABDOMEN KUB CLINICAL INDICATION: pre MRI COMPARISON: None available. TECHNIQUE: AP view of the abdomen. FINDINGS: No metallic foreign body. No intestinal bowel obstruction. Multilevel thoracolumbar spondylosis. S-shaped curvature with a levoconvex curvature in the lower lumbar spine. Degenerative changes in the coxofemoral joints. IMPRESSION: No metallic foreign body. Electronically signed by: Patrick Fulton MD 10/10/2025 01:55 PM EST RP Medications Medications Current Medications Acetaminophen (Acetaminophen 325 Mg Tablet) 650 mg PO Q6H PRN PRN Reason: Headache/Pain, Scale 1-10 Al Hydroxide/Mg Hydroxide (Magnesium Hydrox/Alum Hydrox 30 Ml Oral.Susp) 30 ml PO Q6H PRN PRN Reason: Heartburn/Nausea Cyanocobalamin (Cyanocobalamin (Vitamin B-12) 1,000 Mcg Tablet) 1,000 mcg PO DAILY [facility] Last Admin: 10/10/25 09:25 Dose: 1,000 mcg Lisinopril (Lisinopril 20 Mg Tablet) 20 mg PO DAILY [facility]; Protocol Last Admin: 10/10/25 09:25 Dose: 20 mg Lorazepam (Lorazepam 0.5 Mg Tablet) 0.5 mg PO Q8H PRN PRN Reason: Anxiety Lorazepam (Lorazepam 0.5 Mg Tablet) 0.5 mg PO TID [facility] Last Admin: 10/10/25 14:44 Dose: 0.5 mg Magnesium Hydroxide (Milk Of Magnesia 30 Ml Oral.Susp) 30 ml PO DAILY PRN PRN Reason: Constipation Metoprolol Succinate (Metoprolol Succinate Er 25 Mg Tab.Er.24h) 25 mg PO DAILY [facility]; Protocol Last Admin: 10/10/25 09:25 Dose: 25 mg Mirtazapine (Mirtazapine 7.5 Mg Tablet) 22.5 mg PO BEDTIME [facility] Last Admin: 10/09/25 20:04 Dose: 22.5 mg Risperidone (Risperidone 0.5 Mg Tablet) 0.5 mg PO DAILY [facility] Last Admin: 10/10/25 09:25 Dose: 0.5 mg Risperidone (Risperidone 0.5 Mg Tablet) 1.5 mg PO BEDTIME [facility] Last Admin: 10/09/25 20:04 Dose: 1.5 mg Sertraline HCl (Sertraline Hcl 50 Mg Tablet) 150 mg PO DAILY [facility] Last Admin: 10/10/25 09:25 Dose: 150 mg Allergies Allergies Allergy/AdvReac Type Severity Reaction Status Date / Time No Known Allergies Allergy Verified 10/02/25 12:16 Assessment & Plan Assessment & Plan (1) MDD (major depressive disorder), recurrent, severe, with psychosis: Status: Acute Code(s): F33.3 - Major depressive disorder, recurrent, severe with psychotic symptoms Assessment and Plan: SSRI recently adjusted add Risperdal, risks/benefits/side effects/alternatives discussed with patient/family and determination made to start and titrate 10/06 Increase Sertraline, Remeron, Risperdal titration 10/09 Ativan ordered as PRN not taken Add scheduled Ativan to acutely manage level of anxiety Adjust Risperdal and Mirtazapine Change to 5 monitoring (2) HTN (hypertension): Status: Acute Code(s): I10 - Essential (primary) hypertension (3) Cognitive deficit with impaired psychomotor function: Status: Acute Code(s): R41.89 - Other symptoms and signs involving cognitive functions and awareness; R41.843 - Psychomotor deficit Plan Mr. Yost is a 80 year-old who came to ED due to increase depressed mood, paranoid delusions thinking police was going to shoot him. PLAN 10/05 continue current medications. He has been visible on the unit, still with paranoid ideas although not fully forthcoming. No behavioral concerns.Start risperidone 0.5mg po BID. continue sertraline and remeron 15mg po qhs. Reason for continued inpatient stay Substantial Risk for: inability to function and rapid decompensation Time Spent With Patient Time: Total time managing care of this patient today _55___ minutes.
[2025-10-10 19:41] VITALS: BP 108/57; PULSE 68; RESP 16; TEMP 36.2; O2SAT 98
[2025-10-11 08:00] VITALS: BP 108/56; PULSE 63; RESP 16; TEMP 36.4; O2SAT 93
[2025-10-11] MEDS: Metoprolol Succinate ER 25 MG TAB.ER.24H PO (08:52)
--- NOTE | 2025-10-11 18:20 | HO.PSYCHPN ---
Subjective Subjective Date of Service: 10/11/25 Reason For Visit: SI,confusion, inability to function, sever depress Healthcare Proxy: Yes Interim History: Remains very distraught difficult to get direct answers, avoids eye contact, wringing hands. Had MRI today, just came back. Says he slept some. fearful. Does not give a definite answer as to the possibility of suicide, but denies immediate intent. Patient severely depression with psychotic symptoms and ruminations involving guilt, loss function, being in danger. Has family history of dementia (mother) and perceives loss of function which along severe anxiety/depressive symptoms, delusions has lead to feelings of hopelessness, helplessness and nihilistic view of his situation Slept a little today, he says Mental Status Exam Mental Status Exam Patient Appearance: Fatigued, Disheveled and Unkempt Patient Orientation: Person, Place, Time and Situation Level of Consciousness: Awake and Follows Commands Patient Behavior: Guarded, Cooperative and Anxious Mood Description: Fearful, Anxious, Sad, Nervous and Apprehensive Affect Description: Suspicious, Anxious, Nervous and Apprehensive Ability to Follow Directions: Good Speech Pattern: Clear, Perseverating and Mumbled Hallucinations: Auditory Delusions: Paranoid Ideation, Present and Ideas of Reference Thought Process: Rumination, Linear and Slowed Thinking Thought Content: positive for Goal Oriented, positive for Perseveration, positive for Preoccupation, positive for Slowed Thinking, positive for Evasive, positive for Logical and positive for Suicidal Ideation (no plan/intent) Diagnostics Vital Signs (24Hr): Vital Signs - 24 hr 10/10/25 19:41 10/11/25 08:00 Temperature 97.2 F 97.5 F Pulse Rate 68 63 Respiratory Rate 16 16 Blood Pressure 108/57 L 108/56 L Pulse Oximetry 98 93 Oxygen Delivery Method Room Air BMI result Body Mass Index 27.6 Labs 10/13/25 07:27 10/12/25 11:44 Imaging Radiology Impressions: ITS Impressions Head CT 10/02/25 13:43 IMPRESSION: 1. No acute intracranial abnormality. 2. Partial opacification of the right maxillary sinus with likely old post traumatic changes to the posteroinferior sinus haider. Electronically signed by: Neptali Purcell MD 10/02/2025 02:05 PM [facility] [place]Ray 10/10/25 13:43 IMPRESSION: No metallic foreign body. EXAMINATION: XR ABDOMEN KUB CLINICAL INDICATION: pre MRI COMPARISON: None available. TECHNIQUE: AP view of the abdomen. FINDINGS: No metallic foreign body. No intestinal bowel obstruction. Multilevel thoracolumbar spondylosis. S-shaped curvature with a levoconvex curvature in the lower lumbar spine. Degenerative changes in the coxofemoral joints. IMPRESSION: No metallic foreign body. Electronically signed by: Patrick Fulton MD 10/10/2025 01:55 PM EST RP Abdomen X-Ray 10/10/25 13:46 IMPRESSION: No metallic foreign body. EXAMINATION: XR ABDOMEN KUB CLINICAL INDICATION: pre MRI COMPARISON: None available. TECHNIQUE: AP view of the abdomen. FINDINGS: No metallic foreign body. No intestinal bowel obstruction. Multilevel thoracolumbar spondylosis. S-shaped curvature with a levoconvex curvature in the lower lumbar spine. Degenerative changes in the coxofemoral joints. IMPRESSION: No metallic foreign body. Electronically signed by: Patrick Fulton MD 10/10/2025 01:55 PM EST RP Brain MRI 10/11/25 13:08 IMPRESSION: 1. No evidence of intracranial hemorrhage, acute infarction, mass effect, or edema. 2. Mild to moderate white matter changes of small vessel ischemia. 3. 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 4. Moderate right maxillary sinus disease. 5. Neuro-quantitative analysis as described above. Please refer to the full neuro-quantitative analysis worksheets attached to this examination for further details. Electronically signed by: Neptali Purcell MD 10/11/2025 03:24 PM EST RP Medications Medications Current Medications Acetaminophen (Acetaminophen 325 Mg Tablet) 650 mg PO Q6H PRN PRN Reason: Headache/Pain, Scale 1-10 Al Hydroxide/Mg Hydroxide (Magnesium Hydrox/Alum Hydrox 30 Ml Oral.Susp) 30 ml PO Q6H PRN PRN Reason: Heartburn/Nausea Cyanocobalamin (Cyanocobalamin (Vitamin B-12) 1,000 Mcg Tablet) 1,000 mcg PO DAILY [facility] Last Admin: 10/11/25 08:52 Dose: 1,000 mcg Lisinopril (Lisinopril 20 Mg Tablet) 20 mg PO DAILY [facility]; Protocol Last Admin: 10/11/25 08:52 Dose: 20 mg Lorazepam (Lorazepam 0.5 Mg Tablet) 0.5 mg PO Q8H PRN PRN Reason: Anxiety Lorazepam (Lorazepam 0.5 Mg Tablet) 0.5 mg PO TID [facility] Last Admin: 10/11/25 15:15 Dose: 0.5 mg Magnesium Hydroxide (Milk Of Magnesia 30 Ml Oral.Susp) 30 ml PO DAILY PRN PRN Reason: Constipation Metoprolol Succinate (Metoprolol Succinate Er 25 Mg Tab.Er.24h) 25 mg PO DAILY [facility]; Protocol Last Admin: 10/11/25 08:52 Dose: 25 mg Mirtazapine (Mirtazapine 7.5 Mg Tablet) 22.5 mg PO BEDTIME [facility] Last Admin: 10/10/25 19:44 Dose: 22.5 mg Risperidone (Risperidone 0.5 Mg Tablet) 0.5 mg PO DAILY [facility] Last Admin: 10/11/25 08:51 Dose: 0.5 mg Risperidone (Risperidone 0.5 Mg Tablet) 1.5 mg PO BEDTIME [facility] Last Admin: 10/10/25 19:45 Dose: 1.5 mg Sertraline HCl (Sertraline Hcl 50 Mg Tablet) 150 mg PO DAILY [facility] Last Admin: 10/11/25 08:52 Dose: 150 mg Allergies Allergies Allergy/AdvReac Type Severity Reaction Status Date / Time No Known Allergies Allergy Verified 10/02/25 12:16 Assessment & Plan Assessment & Plan (1) MDD (major depressive disorder), recurrent, severe, with psychosis: Status: Acute Code(s): F33.3 - Major depressive disorder, recurrent, severe with psychotic symptoms Assessment and Plan: SSRI recently adjusted add Risperdal, risks/benefits/side effects/alternatives discussed with patient/family and determination made to start and titrate 10/06 Increase Sertraline, Remeron, Risperdal titration 10/09 Ativan ordered as PRN not taken Add scheduled Ativan to acutely manage level of anxiety Adjust Risperdal and Mirtazapine Change to 5 monitoring (2) Neurocognitive disorder: Status: Acute Code(s): R41.9 - Unspecified symptoms and signs involving cognitive functions and awareness (3) HTN (hypertension): Status: Acute Code(s): I10 - Essential (primary) hypertension Plan Mr. Yost is a 80 year-old who came to ED due to increase depressed mood, paranoid delusions thinking police was going to shoot him. PLAN 10/05 continue current medications. He has been visible on the unit, still with paranoid ideas although not fully forthcoming. No behavioral concerns.Start risperidone 0.5mg po BID. continue sertraline and remeron 15mg po qhs. Patient educated on: diagnosis, medication risk/benefits, therapeutic strategies and medical condition Guardian/Caregiver educated on: diagnosis, medication risk/benefits, therapeutic strategies and medical condition Informed Consent: further education needed Reason for continued inpatient stay Substantial Risk for: harm to self, inability to function, rapid decompensation and other (impairments in judgment with ongoing lack in insight re psychotic symptoms. Severe recurrent MDD with psychosis,) Time Spent With Patient Time: Total time managing care of this patient today _45___ minutes.
[2025-10-11 20:00] VITALS: BP 96/60; PULSE 69; RESP 16; TEMP 36.1; O2SAT 95
[2025-10-12 08:32] VITALS: BP 114/56; PULSE 64; TEMP 36.2; O2SAT 99
[2025-10-12] MEDS: Metoprolol Succinate ER 25 MG TAB.ER.24H PO (08:34)
--- NOTE | 2025-10-12 09:13 | P.PNIM_ITS ---
Subjective Subjective Date of Service: 10/12/25 Interval History: Patient is seen in follow up for event monitor that was placed outpatient. Patient was supposed to see a follow up Cardiology [facility]. Patient was establishing care has not been seen by Cardiology yet. Patient is on a rate control medication. Can follow up with Cardiology outpatient is planned. On exam he has no complaints. Review of Systems Denies any shortness of breath, chest pain, headaches, dysuria, abdominal pain or discomfort, nausea, vomiting or diarrhea. Denies fever or chills. Physical Exam 2 Vital Signs: Vital Signs: Last Vital Signs Temp 97.2 F 10/12/25 08:32 Pulse 64 10/12/25 08:32 Resp 16 10/11/25 20:00 BP 114/56 L 10/12/25 08:32 Pulse Ox 99 10/12/25 08:32 O2 Del Method Room Air 10/12/25 08:32 BMI result Body Mass Index 27.6 Appearance: Alert. Oriented X3. No acute distress. He has very poor eye contact, he is withdrawn, he is alert and oriented and knows where he is but he has a difficult time remembering what brought him here and he can not name any of his long-term medications Eyes: Pupils equal, round and reactive to light. ENT: Pharynx normal. Neck: Normal inspection. Neck supple. CVS: Normal heart rate and rhythm. Pulses normal. Respiratory: No respiratory distress. Breath sounds normal. Abdomen: Soft and nontender. Skin: Skin warm and dry. Normal skin color. Normal skin turgor. Extremities: No lower extremity edema. No calf ttp Neuro: Oriented X 3. No motor deficit. No sensory deficit. CN2-12 intact Objective Data Active Medications Acetaminophen (Acetaminophen 325 Mg Tablet) 650 mg PO Q6H PRN PRN Reason: Headache/Pain, Scale 1-10 Al Hydroxide/Mg Hydroxide (Magnesium Hydrox/Alum Hydrox 30 Ml Oral.Susp) 30 ml PO Q6H PRN PRN Reason: Heartburn/Nausea Cyanocobalamin (Cyanocobalamin (Vitamin B-12) 1,000 Mcg Tablet) 1,000 mcg PO DAILY [facility] Last Admin: 10/12/25 08:34 Dose: 1,000 mcg Documented By: MABEL Lisinopril (Lisinopril 20 Mg Tablet) 20 mg PO DAILY [facility]; Protocol Last Admin: 10/12/25 08:34 Dose: 20 mg Documented By: MABEL Lorazepam (Lorazepam 0.5 Mg Tablet) 0.5 mg PO Q8H PRN PRN Reason: Anxiety Lorazepam (Lorazepam 0.5 Mg Tablet) 0.5 mg PO TID [facility] Last Admin: 10/12/25 08:34 Dose: 0.5 mg Documented By: MABEL Magnesium Hydroxide (Milk Of Magnesia 30 Ml Oral.Susp) 30 ml PO DAILY PRN PRN Reason: Constipation Metoprolol Succinate (Metoprolol Succinate Er 25 Mg Tab.Er.24h) 25 mg PO DAILY [facility]; Protocol Last Admin: 10/12/25 08:34 Dose: 25 mg Documented By: MABEL Mirtazapine (Mirtazapine 7.5 Mg Tablet) 22.5 mg PO BEDTIME [facility] Last Admin: 10/11/25 20:31 Dose: 22.5 mg Documented By: VERONICA Risperidone (Risperidone 0.5 Mg Tablet) 0.5 mg PO DAILY [facility] Last Admin: 10/12/25 08:34 Dose: 0.5 mg Documented By: MABEL Risperidone (Risperidone 0.5 Mg Tablet) 1.5 mg PO BEDTIME [facility] Last Admin: 10/11/25 20:31 Dose: 1.5 mg Documented By: VERONICA Sertraline HCl (Sertraline Hcl 50 Mg Tablet) 150 mg PO DAILY [facility] Last Admin: 10/12/25 08:35 Dose: 150 mg Documented By: MABEL Labs 10/02/25 12:41 10/12/25 11:44 Assessment and Plan (1) HTN (hypertension): Status: Acute Plan 80-year-old male with past medical history listed below presented to the ED with increased depression, sleeplessness and racing thoughts. He is now admitted to inpatient psychiatry for stabilization. Depression/sleep disturbances Treatment per psychiatric team Hypertension Continue lisinopril If blood pressure continues to be elevated we will adjust medications Patient's blood pressure 160/74 this morning at 08:25. Patient received his medicine at 08:27. Patient had an event monitor, will follow up with [facility] outpatient On metoprolol for rate control. BPH Continue to monitor voiding pattern If patient experiences difficulty voiding notify provider. Thank you for allowing me to participate in the care of this patient. Will follow with you, please notify medical provider with any changes in condition or concerns. Quality Stroke Does the patient have a stroke diagnosis?: No VTE Prior VTE?: No VTE Risk Level:: Medical - low VTE Device Contraindication: Treatment Not Indicated VTE Drug Contraindication: Treatment Not Indicated
[2025-10-12 12:01] LABS: Anion Gap 11 (12-20); Blood Urea Nitrogen 45 mg/dL (9-16); Calcium 9.1 mg/dL (8.4-10.2); Carbon Dioxide 27 mmol/L (22-29); Chloride 108 mmol/L (96-108); Creatinine Clr Calc Pharmacy 67.7; Estimated Glomerular Filt Rate > 60; Potassium 4.6 mmol/L (3.3-5.1); Sodium 141 mmol/L (135-145)
[2025-10-12 13:56] VITALS: BMI 27.5
[2025-10-12 20:00] VITALS: RESP 16
[2025-10-13 07:43] LABS: MANUAL DIFF FLAG NO
[2025-10-13 07:47] LABS: Hematocrit 38.2 % (42.0-52.0); Hemoglobin 12.6 g/dl (14.0-18.0); Imm Gran Abs Auto 0.30 X10*3/uL (0.00-0.03); Imm Gran Pct Auto 4.1 % (0.0-0.4); Lymphocytes Absolute Auto 1.6 X10*3/uL (1.2-4.9); Mean Corpuscular HGB Conc 33.0 g/dl (31.0-36.0); Mean Corpuscular Hemoglobin 32.0 pg (27.0-33.0); Mean Corpuscular Volume 97.0 fL (80.0-98.0); NRBC Abs Auto 0.000 X10*3/uL (0.0-0.012); NRBC Pct Auto 0.0 /100WBC (0.0-0.2); Platelet Count 189 X10*3/uL (160-400); Red Blood Count 3.94 X10*6/uL (4.60-5.80); White Blood Count 7.4 X10*3/uL (4.8-10.8)
[2025-10-13 08:00] VITALS: BP 128/60; PULSE 70; RESP 16; TEMP 36.6; O2SAT 96
[2025-10-13] MEDS: Metoprolol Succinate ER 25 MG TAB.ER.24H PO (08:05)
--- NOTE | 2025-10-13 12:47 | HO.PSYCHPN ---
Subjective Subjective Date of Service: 10/12/25 Reason For Visit: SI,confusion, inability to function, sever depress Interim History: Less anxious, still withdrawn. Discussed feelings of depression and also what his fears were, both in terms of his feeling safe here/at home. Asked also about memory, confusion. disorientation, changes in functioning safety in the unit as well as to any changes in function/memory (difficulties with misplacing objects of any changes he has made to manage theseis attributable to his memory/orientationccomodations he has made at home to manage forgetprogress of his difficulties with cognitive/executive functioning as well as his choice to stop driving (because he didn't feel he had fast reflexes anymore). Shared still that he could not say suicide had crossed his mind, not now but could not say this was something he wanted or planned to do. Shared concerns over his whom he says has lost her family and what would happen if he was not there. Still experiencing persecutory delusional beliefs, states there are suspicious people in unit wearing dark clothes. Med compliant. c/o sedation but OK to slowly adjust. Medication Compliance: Yes Side effects from medications: Yes Attending Groups: No Review of Systems Medical Review of Systems: unchanged Review of Systems Review of Systems sedated, odd feeling thinks due medications Diagnostics Vital Signs (24Hr): Vital Signs - 24 hr 10/12/25 20:00 10/13/25 08:00 Temperature 97.9 F Pulse Rate 70 Respiratory Rate 16 16 Blood Pressure 128/60 Pulse Oximetry 96 Oxygen Delivery Method Room Air BMI result Body Mass Index 27.5 Labs 10/20/25 07:10 10/19/25 10:55 Labs: Laboratory Results - last 48 hr 10/12/25 10/13/25 11:44 07:27 WBC 7.4 RBC 3.94 L Hgb 12.6 L Hct 38.2 L MCV 97.0 MCH 32.0 MCHC 33.0 RDW 11.5 Plt Count 189 MPV 9.4 Immature Gran % (Auto) 4.1 H Neut % (Auto) 59.0 Lymph % (Auto) 21.8 [place] % (Auto) 13.1 H Eos % (Auto) 1.5 Baso % (Auto) 0.5 Lymph # (Auto) 1.6 [place] # (Auto) 1.0 Eos # (Auto) 0.1 Baso # (Auto) 0.0 Abs Immat Gran (auto) 0.30 H Absolute Neuts (auto) 4.3 Absolute Nucleated RBC 0.000 Nucleated RBC % (auto) 0.0 Sodium 141 Potassium 4.6 Chloride 108 Carbon Dioxide 27 Anion Gap 11 L BUN 45 H Creatinine 0.91 Estim Creat Clear Calc 67.7 Estimated GFR > 60 Random Glucose 95 Calcium 9.1 Imaging Radiology Impressions: ITS Impressions Head CT 10/02/25 13:43 IMPRESSION: 1. No acute intracranial abnormality. 2. Partial opacification of the right maxillary sinus with likely old post traumatic changes to the posteroinferior sinus haider. Electronically signed by: Neptali Purcell MD 10/02/2025 02:05 PM EST RP Chest X-Ray 10/10/25 13:43 IMPRESSION: No metallic foreign body. EXAMINATION: XR ABDOMEN KUB CLINICAL INDICATION: pre MRI COMPARISON: None available. TECHNIQUE: AP view of the abdomen. FINDINGS: No metallic foreign body. No intestinal bowel obstruction. Multilevel thoracolumbar spondylosis. S-shaped curvature with a levoconvex curvature in the lower lumbar spine. Degenerative changes in the coxofemoral joints. IMPRESSION: No metallic foreign body. Electronically signed by: Patrick Fulton MD 10/10/2025 01:55 PM EST RP Abdomen X-Ray 10/10/25 13:46 IMPRESSION: No metallic foreign body. EXAMINATION: XR ABDOMEN KUB CLINICAL INDICATION: pre MRI COMPARISON: None available. TECHNIQUE: AP view of the abdomen. FINDINGS: No metallic foreign body. No intestinal bowel obstruction. Multilevel thoracolumbar spondylosis. S-shaped curvature with a levoconvex curvature in the lower lumbar spine. Degenerative changes in the coxofemoral joints. IMPRESSION: No metallic foreign body. Electronically signed by: Patrick Fulton MD 10/10/2025 01:55 PM EST RP Brain MRI 10/11/25 13:08 IMPRESSION: 1. No evidence of intracranial hemorrhage, acute infarction, mass effect, or edema. 2. Mild to moderate white matter changes of small vessel ischemia. 3. 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 4. Moderate right maxillary sinus disease. 5. Neuro-quantitative analysis as described above. Please refer to the full neuro-quantitative analysis worksheets attached to this examination for further details. Electronically signed by: Neptali Purcell MD 10/11/2025 03:24 PM [facility] Medications Medications Current Medications Acetaminophen (Acetaminophen 325 Mg Tablet) 650 mg PO Q6H PRN PRN Reason: Headache/Pain, Scale 1-10 Last Admin: 10/12/25 09:52 Dose: 650 mg Al Hydroxide/Mg Hydroxide (Magnesium Hydrox/Alum Hydrox 30 Ml Oral.Susp) 30 ml PO Q6H PRN PRN Reason: Heartburn/Nausea Cyanocobalamin (Cyanocobalamin (Vitamin B-12) 1,000 Mcg Tablet) 1,000 mcg PO DAILY [facility] Last Admin: 10/13/25 08:05 Dose: 1,000 mcg Donepezil HCl (Donepezil Hcl 5 Mg Tablet) 5 mg PO BEDTIME [facility] Last Admin: 10/12/25 20:39 Dose: Not Given Lisinopril (Lisinopril 20 Mg Tablet) 20 mg PO DAILY [facility]; Protocol Last Admin: 10/13/25 08:06 Dose: 20 mg Lorazepam (Lorazepam 0.5 Mg Tablet) 0.5 mg PO Q8H PRN PRN Reason: Anxiety Lorazepam (Lorazepam 0.5 Mg Tablet) 0.5 mg PO BID [facility] Last Admin: 10/13/25 08:04 Dose: 0.5 mg Magnesium Hydroxide (Milk Of Magnesia 30 Ml Oral.Susp) 30 ml PO DAILY PRN PRN Reason: Constipation Metoprolol Succinate (Metoprolol Succinate Er 25 Mg Tab.Er.24h) 25 mg PO DAILY [facility]; Protocol Last Admin: 10/13/25 08:05 Dose: 25 mg Mirtazapine (Mirtazapine 7.5 Mg Tablet) 22.5 mg PO BEDTIME [facility]Z Last Admin: 10/12/25 20:40 Dose: Not Given Risperidone (Risperidone 0.5 Mg Tablet) 0.5 mg PO DAILY [facility] Last Admin: 10/13/25 08:06 Dose: 0.5 mg Risperidone (Risperidone 0.5 Mg Tablet) 1.5 mg PO BEDTIME [facility]Z Last Admin: 10/12/25 20:40 Dose: Not Given Sertraline HCl (Sertraline Hcl 50 Mg Tablet) 150 mg PO DAILY [facility] Last Admin: 10/13/25 08:03 Dose: 150 mg Allergies Allergies Allergy/AdvReac Type Severity Reaction Status Date / Time No Known Allergies Allergy Verified 10/02/25 12:16 Assessment & Plan Assessment & Plan (1) HTN (hypertension): Status: Acute Code(s): I10 - Essential (primary) hypertension Plan 80-year-old male with past medical history listed below presented to the ED with increased depression, sleeplessness and racing thoughts. He is now admitted to inpatient psychiatry for stabilization. Depression/sleep disturbances Treatment per psychiatric team Hypertension Continue lisinopril If blood pressure continues to be elevated we will adjust medications Patient's blood pressure 160/74 this morning at 08:25. Patient received his medicine at 08:27. Patient had an event monitor, will follow up with [facility] outpatient On metoprolol for rate control. BPH Continue to monitor voiding pattern If patient experiences difficulty voiding notify provider. Thank you for allowing me to participate in the care of this patient. Will follow with you, please notify medical provider with any changes in condition or concerns. Reason for continued inpatient stay Substantial Risk for: harm to self, inability to function and other (psychosis, severe anxiety and depression, impaired judgment) Time Spent With Patient Time: Total time managing care of this patient today ____ minutes.
--- NOTE | 2025-10-13 12:48 | HO.PSYCHPN ---
Subjective Subjective Date of Service: 10/13/25 Reason For Visit: SI,confusion, inability to function, sever depress Subjective Notes: [place] Warning Healthcare Proxy: Yes Guardianship: No Interim History: still constricted affect but more open to answering questions/providing history Review of Systems Review of Systems sedated, odd feeling thinks due medications Yes Unobtainable due to mental status and Other (limited, patient guarded, vague---ROS per medical/psych HPI) Constitutional: Reports as per HPI (see medicine evaluation) Eyes: Reports as per HPI Reports as per HPI Reports behavioral changes and Reports confusion Psychiatric: Reports abnormal sleep pattern, Reports anxiety, Reports behavioral changes, Reports change in appetite, Reports confusion, Reports depression, Reports difficulty concentrating, Reports hopelessness, Reports anhedonia, Reports paranoia, Reports hallucinations and Reports suicidal ideation (without current plan/intent---) Mental Status Exam Mental Status Exam Patient Appearance: Fatigued, Disheveled and Unkempt Patient Orientation: Person, Place, Time and Situation Level of Consciousness: Awake and Follows Commands Patient Behavior: Guarded, Cooperative and Anxious Mood Description: Fearful, Anxious, Sad, Nervous and Apprehensive Affect Description: Suspicious, Anxious, Nervous and Apprehensive Ability to Follow Directions: Good Speech Pattern: Clear, Perseverating and Mumbled Hallucinations: Olfactory Delusions: Paranoid Ideation Perceptual Disturbances: Hallucinations Thought Process: Rumination and Slowed Thinking Thought Content: positive for Circumstantial, positive for Goal Oriented, positive for Slowed Thinking and positive for Evasive Abnormal Motor Activity Signs and Symptoms: Psychomotor Retardation (mild) Judgement: Fair (limited) Diagnostics Vital Signs (24Hr): Vital Signs - 24 hr 10/12/25 20:00 10/13/25 08:00 Temperature 97.9 F Pulse Rate 70 Respiratory Rate 16 16 Blood Pressure 128/60 Pulse Oximetry 96 Oxygen Delivery Method Room Air BMI result Body Mass Index 27.5 Labs 10/20/25 07:10 10/19/25 10:55 Labs: Laboratory Results - last 48 hr 10/12/25 10/13/25 11:44 07:27 WBC 7.4 RBC 3.94 L Hgb 12.6 L Hct 38.2 L MCV 97.0 MCH 32.0 MCHC 33.0 RDW 11.5 Plt Count 189 MPV 9.4 Immature Gran % (Auto) 4.1 H Neut % (Auto) 59.0 Lymph % (Auto) 21.8 [place] % (Auto) 13.1 H Eos % (Auto) 1.5 Baso % (Auto) 0.5 Lymph # (Auto) 1.6 [place] # (Auto) 1.0 Eos # (Auto) 0.1 Baso # (Auto) 0.0 Abs Immat Gran (auto) 0.30 H Absolute Neuts (auto) 4.3 Absolute Nucleated RBC 0.000 Nucleated RBC % (auto) 0.0 Sodium 141 Potassium 4.6 Chloride 108 Carbon Dioxide 27 Anion Gap 11 L BUN 45 H Creatinine 0.91 Estim Creat Clear Calc 67.7 Estimated GFR > 60 Random Glucose 95 Calcium 9.1 Imaging Radiology Impressions: ITS Impressions Head CT 10/02/25 13:43 IMPRESSION: 1. No acute intracranial abnormality. 2. Partial opacification of the right maxillary sinus with likely old post traumatic changes to the posteroinferior sinus haider. Electronically signed by: Neptali Purcell MD 10/02/2025 02:05 PM EST RP Chest X-Ray 10/10/25 13:43 IMPRESSION: No metallic foreign body. EXAMINATION: XR ABDOMEN KUB CLINICAL INDICATION: pre MRI COMPARISON: None available. TECHNIQUE: AP view of the abdomen. FINDINGS: No metallic foreign body. No intestinal bowel obstruction. Multilevel thoracolumbar spondylosis. S-shaped curvature with a levoconvex curvature in the lower lumbar spine. Degenerative changes in the coxofemoral joints. IMPRESSION: No metallic foreign body. Electronically signed by: Patrick Fulton MD 10/10/2025 01:55 PM EST RP Abdomen X-Ray 10/10/25 13:46 IMPRESSION: No metallic foreign body. EXAMINATION: XR ABDOMEN KUB CLINICAL INDICATION: pre MRI COMPARISON: None available. TECHNIQUE: AP view of the abdomen. FINDINGS: No metallic foreign body. No intestinal bowel obstruction. Multilevel thoracolumbar spondylosis. S-shaped curvature with a levoconvex curvature in the lower lumbar spine. Degenerative changes in the coxofemoral joints. IMPRESSION: No metallic foreign body. Electronically signed by: Patrick Fulton MD 10/10/2025 01:55 PM EST RP Brain MRI 10/11/25 13:08 IMPRESSION: 1. No evidence of intracranial hemorrhage, acute infarction, mass effect, or edema. 2. Mild to moderate white matter changes of small vessel ischemia. 3. 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 4. Moderate right maxillary sinus disease. 5. Neuro-quantitative analysis as described above. Please refer to the full neuro-quantitative analysis worksheets attached to this examination for further details. Electronically signed by: Neptali Purcell MD 10/11/2025 03:24 PM [facility] Medications Medications Current Medications Acetaminophen (Acetaminophen 325 Mg Tablet) 650 mg PO Q6H PRN PRN Reason: Headache/Pain, Scale 1-10 Last Admin: 10/12/25 09:52 Dose: 650 mg Al Hydroxide/Mg Hydroxide (Magnesium Hydrox/Alum Hydrox 30 Ml Oral.Susp) 30 ml PO Q6H PRN PRN Reason: Heartburn/Nausea Cyanocobalamin (Cyanocobalamin (Vitamin B-12) 1,000 Mcg Tablet) 1,000 mcg PO DAILY [facility] Last Admin: 10/13/25 08:05 Dose: 1,000 mcg Donepezil HCl (Donepezil Hcl 5 Mg Tablet) 5 mg PO BEDTIME LIZ Last Admin: 10/12/25 20:39 Dose: Not Given Lisinopril (Lisinopril 20 Mg Tablet) 20 mg PO DAILY [facility]; Protocol Last Admin: 10/13/25 08:06 Dose: 20 mg Lorazepam (Lorazepam 0.5 Mg Tablet) 0.5 mg PO Q8H PRN PRN Reason: Anxiety Lorazepam (Lorazepam 0.5 Mg Tablet) 0.5 mg PO BID [facility] Last Admin: 10/13/25 08:04 Dose: 0.5 mg Magnesium Hydroxide (Milk Of Magnesia 30 Ml Oral.Susp) 30 ml PO DAILY PRN PRN Reason: Constipation Metoprolol Succinate (Metoprolol Succinate Er 25 Mg Tab.Er.24h) 25 mg PO DAILY [facility]; Protocol Last Admin: 10/13/25 08:05 Dose: 25 mg Mirtazapine (Mirtazapine 7.5 Mg Tablet) 22.5 mg PO BEDTIME [facility]Z Last Admin: 10/12/25 20:40 Dose: Not Given Risperidone (Risperidone 0.5 Mg Tablet) 0.5 mg PO DAILY [facility] Last Admin: 10/13/25 08:06 Dose: 0.5 mg Risperidone (Risperidone 0.5 Mg Tablet) 1.5 mg PO BEDTIME [facility]Z Last Admin: 10/12/25 20:40 Dose: Not Given Sertraline HCl (Sertraline Hcl 50 Mg Tablet) 150 mg PO DAILY [facility] Last Admin: 10/13/25 08:03 Dose: 150 mg Allergies Allergies Allergy/AdvReac Type Severity Reaction Status Date / Time No Known Allergies Allergy Verified 10/02/25 12:16 Assessment & Plan Assessment & Plan (1) HTN (hypertension): Status: Acute Code(s): I10 - Essential (primary) hypertension Plan 80-year-old male with severe depression, SI, psychosis and anxiety sxs as well as progressive functional decline over past 1-2 yrs. Patient had similar depression with psychotic features though less severe intensity 7 years ago. Patient educated on: diagnosis, medication risk/benefits, therapeutic strategies and other Guardian/Caregiver educated on: diagnosis, medication risk/benefits, substance abuse, therapeutic strategies and other Informed Consent: understands and further education needed Reason for continued inpatient stay Substantial Risk for: harm to self (thoughts/passive currently), inability to function and rapid decompensation Time Spent With Patient Time: Total time managing care of this patient today ____50 minutes.
[2025-10-13 20:00] VITALS: RESP 16
[2025-10-14 08:00] VITALS: BP 96/52; PULSE 62; RESP 16; TEMP 36.8; O2SAT 98
[2025-10-14] MEDS: Metoprolol Succinate ER 25 MG TAB.ER.24H PO (10:09)
--- NOTE | 2025-10-14 17:29 | HO.PSYCHPN ---
Subjective Subjective Date of Service: 10/14/25 Reason For Visit: SI,confusion, inability to function, sever depress Subjective Notes: Conditional Voluntary Healthcare Proxy: Yes Guardianship: No Medical Problems Affecting Mental Status: No Interim History: Patient in adequate behavioral control today. Taking all scheduled medications. Medication Compliance: Yes Side effects from medications: No Attending Groups: No Review of Systems Acute medical concerns: No Medical Review of Systems: unchanged Mental Status Exam Mental Status Exam Narrative: Appearance: wearing casual clothing, good hygiene, in NAD Behavior: cooperative Psychomotor: no agitation or retardation noted Speech: clear, normal rate/rhythm/volume, spontaneous TP: linear TC: worried about his life, Mood: anxious SI: denies HI: denies VH/AH: none Delusions: paranoid delusions related to thinking police is after him Insight/judgment: impaired Memory/cog: alert, oriented x 3 Diagnostics Vital Signs (24Hr): Vital Signs - 24 hr 10/13/25 20:00 10/14/25 08:00 Temperature 98.2 F Pulse Rate 62 Respiratory Rate 16 16 Blood Pressure 96/52 L Pulse Oximetry 98 BMI result Body Mass Index 27.5 Labs 10/13/25 07:27 10/12/25 11:44 Labs: Laboratory Results - last 48 hr 10/13/25 07:27 WBC 7.4 RBC 3.94 L Hgb 12.6 L Hct 38.2 L MCV 97.0 MCH 32.0 MCHC 33.0 RDW 11.5 Plt Count 189 MPV 9.4 Immature Gran % (Auto) 4.1 H Neut % (Auto) 59.0 Lymph % (Auto) 21.8 [place] % (Auto) 13.1 H Eos % (Auto) 1.5 Baso % (Auto) 0.5 Lymph # (Auto) 1.6 [place] # (Auto) 1.0 Eos # (Auto) 0.1 Baso # (Auto) 0.0 Abs Immat Gran (auto) 0.30 H Absolute Neuts (auto) 4.3 Absolute Nucleated RBC 0.000 Nucleated RBC % (auto) 0.0 Imaging Radiology Impressions: ITS Impressions Head CT 10/02/25 13:43 IMPRESSION: 1. No acute intracranial abnormality. 2. Partial opacification of the right maxillary sinus with likely old post traumatic changes to the posteroinferior sinus haider. Electronically signed by: Neptali Purcell MD 10/02/2025 02:05 PM EST RP Chest X-Ray 10/10/25 13:43 IMPRESSION: No metallic foreign body. EXAMINATION: XR ABDOMEN KUB CLINICAL INDICATION: pre MRI COMPARISON: None available. TECHNIQUE: AP view of the abdomen. FINDINGS: No metallic foreign body. No intestinal bowel obstruction. Multilevel thoracolumbar spondylosis. S-shaped curvature with a levoconvex curvature in the lower lumbar spine. Degenerative changes in the coxofemoral joints. IMPRESSION: No metallic foreign body. Electronically signed by: Patrick Fulton MD 10/10/2025 01:55 PM EST RP Abdomen X-Ray 10/10/25 13:46 IMPRESSION: No metallic foreign body. EXAMINATION: XR ABDOMEN KUB CLINICAL INDICATION: pre MRI COMPARISON: None available. TECHNIQUE: AP view of the abdomen. FINDINGS: No metallic foreign body. No intestinal bowel obstruction. Multilevel thoracolumbar spondylosis. S-shaped curvature with a levoconvex curvature in the lower lumbar spine. Degenerative changes in the coxofemoral joints. IMPRESSION: No metallic foreign body. Electronically signed by: Patrick Fulton MD 10/10/2025 01:55 PM EST RP Brain MRI 10/11/25 13:08 IMPRESSION: 1. No evidence of intracranial hemorrhage, acute infarction, mass effect, or edema. 2. Mild to moderate white matter changes of small vessel ischemia. 3. 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 4. Moderate right maxillary sinus disease. 5. Neuro-quantitative analysis as described above. Please refer to the full neuro-quantitative analysis worksheets attached to this examination for further details. Electronically signed by: Neptali Purcell MD 10/11/2025 03:24 PM EST RP Medications Medications Current Medications Acetaminophen (Acetaminophen 325 Mg Tablet) 650 mg PO Q6H PRN PRN Reason: Headache/Pain, Scale 1-10 Last Admin: 10/12/25 09:52 Dose: 650 mg Al Hydroxide/Mg Hydroxide (Magnesium Hydrox/Alum Hydrox 30 Ml Oral.Susp) 30 ml PO Q6H PRN PRN Reason: Heartburn/Nausea Cyanocobalamin (Cyanocobalamin (Vitamin B-12) 1,000 Mcg Tablet) 1,000 mcg PO DAILY [facility] Last Admin: 10/14/25 10:10 Dose: 1,000 mcg Donepezil HCl (Donepezil Hcl 5 Mg Tablet) 5 mg PO BEDTIME [facility] Last Admin: 10/13/25 20:34 Dose: 5 mg Lisinopril (Lisinopril 20 Mg Tablet) 20 mg PO DAILY [facility]; Protocol Last Admin: 10/14/25 10:10 Dose: 20 mg Lorazepam (Lorazepam 0.5 Mg Tablet) 0.5 mg PO Q8H PRN PRN Reason: Anxiety Lorazepam (Lorazepam 0.5 Mg Tablet) 0.5 mg PO BID [facility] Last Admin: 10/14/25 10:10 Dose: 0.5 mg Magnesium Hydroxide (Milk Of Magnesia 30 Ml Oral.Susp) 30 ml PO DAILY PRN PRN Reason: Constipation Metoprolol Succinate (Metoprolol Succinate Er 25 Mg Tab.Er.24h) 25 mg PO DAILY [facility]; Protocol Last Admin: 10/14/25 10:09 Dose: 25 mg Mirtazapine (Mirtazapine 7.5 Mg Tablet) 22.5 mg PO BEDTIME [facility] Last Admin: 10/13/25 20:35 Dose: 22.5 mg Risperidone (Risperidone 2 Mg Tablet) 2 mg PO BEDTIME [facility] Sertraline HCl (Sertraline Hcl 50 Mg Tablet) 150 mg PO DAILY [facility] Last Admin: 10/14/25 10:09 Dose: 150 mg Allergies Allergies Allergy/AdvReac Type Severity Reaction Status Date / Time No Known Allergies Allergy Verified 10/02/25 12:16 Assessment & Plan Assessment & Plan (1) MDD (major depressive disorder), recurrent, severe, with psychosis: Status: Acute Code(s): F33.3 - Major depressive disorder, recurrent, severe with psychotic symptoms Assessment and Plan: SSRI recently adjusted add Risperdal, risks/benefits/side effects/alternatives discussed with patient/family and determination made to start and titrate 10/06 Increase Sertraline, Remeron, Risperdal titration 10/09 Ativan ordered as PRN not taken Add scheduled Ativan to acutely manage level of anxiety Adjust Risperdal and Mirtazapine Change to q5 monitoring (2) Cognitive deficit with impaired psychomotor function: Status: Acute Code(s): R41.89 - Other symptoms and signs involving cognitive functions and awareness; R41.843 - Psychomotor deficit (3) HTN (hypertension): Status: Acute Code(s): I10 - Essential (primary) hypertension Assessment and Plan: per medicine Plan Mr. Yost is a 80 year-old who came to ED due to increase depressed mood, paranoid delusions thinking police was going to shoot him. PLAN 10/05 continue current medications. He has been visible on the unit, still with paranoid ideas although not fully forthcoming. No behavioral concerns.Start risperidone 0.5mg po BID. continue sertraline and remeron 15mg po qhs. 10/14: no changes today Patient educated on: diagnosis and medication risk/benefits Informed Consent: further education needed Reason for continued inpatient stay Substantial Risk for: inability to function Time Spent With Patient Time: Total time managing care of this patient today _15___ minutes.
[2025-10-14 20:00] VITALS: BP 98/60; PULSE 62; RESP 16; TEMP 36.9; O2SAT 97
[2025-10-15 08:00] VITALS: BP 107/53; PULSE 60; RESP 16; TEMP 36.6; O2SAT 97
[2025-10-15] MEDS: Metoprolol Succinate ER 25 MG TAB.ER.24H PO (09:07)
--- NOTE | 2025-10-15 13:21 | HO.PSYCHPN ---
Subjective Subjective Date of Service: 10/15/25 Reason For Visit: SI,confusion, inability to function, sever depress Subjective Notes: Conditional Voluntary Healthcare Proxy: Yes Guardianship: No Medical Problems Affecting Mental Status: No Interim History: Patient found lying on his bed in his room, calmly. He was cooperative with the encounter. He states that he is feeling a little better, states that he has been out of his bed and walking a bit. He reports adequate sleep. He denies any immediate concerns about his care at this time. Patient in generally adequate behavioral control per staff. Medication Compliance: Yes Side effects from medications: No Attending Groups: No Review of Systems Acute medical concerns: No Medical Review of Systems: unchanged Mental Status Exam Mental Status Exam Narrative: Appearance: wearing casual clothing, good hygiene, in NAD Behavior: cooperative Memory/cog: alert, oriented to person, place, date; able to attend to days of the week in reverse order Psychomotor: no agitation or retardation noted Speech: clear, normal rate/rhythm/volume, spontaneous TP: linear TC: worried about his life, Mood: alright, a little better SI: denies HI: denies VH/AH: denies Delusions: none evinced today Insight/judgment: impaired Diagnostics Vital Signs (24Hr): Vital Signs - 24 hr 10/14/25 20:00 10/15/25 08:00 Temperature 98.4 F 97.8 F Pulse Rate 62 60 Respiratory Rate 16 16 Blood Pressure 98/60 107/53 L Pulse Oximetry 97 97 Oxygen Delivery Method Room Air BMI result Body Mass Index 27.5 Labs 10/13/25 07:27 10/12/25 11:44 Imaging Radiology Impressions: ITS Impressions Head CT 10/02/25 13:43 IMPRESSION: 1. No acute intracranial abnormality. 2. Partial opacification of the right maxillary sinus with likely old post traumatic changes to the posteroinferior sinus haider. Electronically signed by: Neptali Purcell MD 10/02/2025 02:05 PM [facility] [place]Ray 10/10/25 13:43 IMPRESSION: No metallic foreign body. EXAMINATION: XR ABDOMEN KUB CLINICAL INDICATION: pre MRI COMPARISON: None available. TECHNIQUE: AP view of the abdomen. FINDINGS: No metallic foreign body. No intestinal bowel obstruction. Multilevel thoracolumbar spondylosis. S-shaped curvature with a levoconvex curvature in the lower lumbar spine. Degenerative changes in the coxofemoral joints. IMPRESSION: No metallic foreign body. Electronically signed by: Patrick Fulton MD 10/10/2025 01:55 PM EST RP Abdomen X-Ray 10/10/25 13:46 IMPRESSION: No metallic foreign body. EXAMINATION: XR ABDOMEN KUB CLINICAL INDICATION: pre MRI COMPARISON: None available. TECHNIQUE: AP view of the abdomen. FINDINGS: No metallic foreign body. No intestinal bowel obstruction. Multilevel thoracolumbar spondylosis. S-shaped curvature with a levoconvex curvature in the lower lumbar spine. Degenerative changes in the coxofemoral joints. IMPRESSION: No metallic foreign body. Electronically signed by: Patrick Fulton MD 10/10/2025 01:55 PM EST RP Brain MRI 10/11/25 13:08 IMPRESSION: 1. No evidence of intracranial hemorrhage, acute infarction, mass effect, or edema. 2. Mild to moderate white matter changes of small vessel ischemia. 3. 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 4. Moderate right maxillary sinus disease. 5. Neuro-quantitative analysis as described above. Please refer to the full neuro-quantitative analysis worksheets attached to this examination for further details. Electronically signed by: Neptali Purcell MD 10/11/2025 03:24 PM EST RP Medications Medications Current Medications Acetaminophen (Acetaminophen 325 Mg Tablet) 650 mg PO Q6H PRN PRN Reason: Headache/Pain, Scale 1-10 Last Admin: 10/12/25 09:52 Dose: 650 mg Al Hydroxide/Mg Hydroxide (Magnesium Hydrox/Alum Hydrox 30 Ml Oral.Susp) 30 ml PO Q6H PRN PRN Reason: Heartburn/Nausea Cyanocobalamin (Cyanocobalamin (Vitamin B-12) 1,000 Mcg Tablet) 1,000 mcg PO DAILY [facility] Last Admin: 10/15/25 09:07 Dose: 1,000 mcg Donepezil HCl (Donepezil Hcl 5 Mg Tablet) 5 mg PO BEDTIME [facility] Last Admin: 10/14/25 20:08 Dose: 5 mg Lisinopril (Lisinopril 20 Mg Tablet) 20 mg PO DAILY [facility]; Protocol Last Admin: 10/15/25 09:07 Dose: 20 mg Lorazepam (Lorazepam 0.5 Mg Tablet) 0.5 mg PO Q8H PRN PRN Reason: Anxiety Lorazepam (Lorazepam 0.5 Mg Tablet) 0.5 mg PO BID [facility] Last Admin: 10/15/25 09:07 Dose: 0.5 mg Magnesium Hydroxide (Milk Of Magnesia 30 Ml Oral.Susp) 30 ml PO DAILY PRN PRN Reason: Constipation Metoprolol Succinate (Metoprolol Succinate Er 25 Mg Tab.Er.24h) 25 mg PO DAILY [facility]; Protocol Last Admin: 10/15/25 09:07 Dose: 25 mg Mirtazapine (Mirtazapine 7.5 Mg Tablet) 22.5 mg PO BEDTIME [facility] Last Admin: 10/14/25 20:07 Dose: 22.5 mg Risperidone (Risperidone 2 Mg Tablet) 2 mg PO BEDTIME [facility] Last Admin: 10/14/25 20:08 Dose: 2 mg Sertraline HCl (Sertraline Hcl 50 Mg Tablet) 150 mg PO DAILY [facility] Last Admin: 10/15/25 09:07 Dose: 150 mg Allergies Allergies Allergy/AdvReac Type Severity Reaction Status Date / Time No Known Allergies Allergy Verified 10/02/25 12:16 Assessment & Plan Assessment & Plan (1) MDD (major depressive disorder), recurrent, severe, with psychosis: Status: Acute Code(s): F33.3 - Major depressive disorder, recurrent, severe with psychotic symptoms Assessment and Plan: SSRI recently adjusted add Risperdal, risks/benefits/side effects/alternatives discussed with patient/family and determination made to start and titrate 10/06 Increase Sertraline, Remeron, Risperdal titration 10/09 Ativan ordered as PRN not taken Add scheduled Ativan to acutely manage level of anxiety Adjust Risperdal and Mirtazapine Change to q5 monitoring (2) Cognitive deficit with impaired psychomotor function: Status: Acute Code(s): R41.89 - Other symptoms and signs involving cognitive functions and awareness; R41.843 - Psychomotor deficit (3) HTN (hypertension): Status: Acute Code(s): I10 - Essential (primary) hypertension Assessment and Plan: per medicine Plan Mr. Yost is a 80 year-old who came to ED due to increase depressed mood, paranoid delusions thinking police was going to shoot him. PLAN 10/05 continue current medications. He has been visible on the unit, still with paranoid ideas although not fully forthcoming. No behavioral concerns.Start risperidone 0.5mg po BID. continue sertraline and remeron 15mg po qhs. 10/14: no changes today 10/15: no changes today Patient educated on: diagnosis and medication risk/benefits Informed Consent: does not understand and further education needed Reason for continued inpatient stay Substantial Risk for: inability to function Time Spent With Patient Time: Total time managing care of this patient today _15___ minutes.
[2025-10-15 20:00] VITALS: BP 101/60; PULSE 67; RESP 16; TEMP 36.8; O2SAT 97
[2025-10-16 08:19] VITALS: PULSE 63; RESP 14; TEMP 36.6; O2SAT 96
[2025-10-16] MEDS: Metoprolol Succinate ER 25 MG TAB.ER.24H PO (08:24)
[2025-10-16 20:00] VITALS: BP 129/60; PULSE 62; RESP 16; TEMP 36.2; O2SAT 97
--- NOTE | 2025-10-16 21:00 | P.PNPSI_ITS ---
Subjective Subjective Date of Service: 10/16/25 Reason For Visit: SI,confusion, inability to function, sever depress Interim History: More visible and engaged. Has showered and shaved, changed clothes and appears in better spirits Reports doing better with medications not as sedated with this regime talked about his thoughts re: diagnosis, and as well as to the idea of suicide in general. Has had time to think about it, feels depression talking and now rejects any consideration now or in the future. Reports sleep has improved. Less guilt ridden, persecutory beliefs remain but patient now feels they seemed real but maybe werent Depressive symptoms and anxiety still present but not as intense Review of Systems Review of Systems sedated, odd feeling thinks due medications Yes Unobtainable due to mental status and Other (limited, patient guarded, vague---ROS per medical/psych HPI) Constitutional: Reports as per HPI (see medicine evaluation) Eyes: Reports as per HPI Reports as per HPI Reports behavioral changes and Reports confusion Psychiatric: Reports abnormal sleep pattern, Reports anxiety, Reports behavioral changes, Reports change in appetite, Reports confusion, Reports depression, Reports difficulty concentrating, Reports hopelessness, Reports anhedonia, Reports paranoia, Reports hallucinations and Reports suicidal ideation (without current plan/intent---) Mental Status Exam Mental Status Exam Narrative: Appearance: wearing casual clothing, appropriated hygiene, shaven Behavior: pleasant Memory/cog: alert, oriented to person, place, date; Psychomotor: no agitation or retardation noted Speech: clear, some latency as if thinking on answer, normal rate/rhythm/volume TP: linear, some circumstantial answers, not perseverating TC: future oriented, (+) paranoid ideas but seems to spontaneously begin reality testing or expressing doubt Mood: I'm not feeling as bad... Affect:Mildly constricted SI: denies active/passive/ wishes or fantasies HI: denies VH/AH: denies Delusions: persecutory ideas but showing ability to challenge Insight/judgment: Accepts need for treatment and f/u, understands dx depression and NCS Diagnostics Vital Signs (24Hr): Vital Signs - 24 hr 10/16/25 08:19 Temperature 97.8 F Pulse Rate 63 Respiratory Rate 14 Pulse Oximetry 96 Oxygen Delivery Method Room Air BMI result Body Mass Index 27.5 Labs 10/20/25 07:10 10/19/25 10:55 Imaging Radiology Impressions: ITS Impressions Head CT 10/02/25 13:43 IMPRESSION: 1. No acute intracranial abnormality. 2. Partial opacification of the right maxillary sinus with likely old post traumatic changes to the posteroinferior sinus haider. Electronically signed by: Neptali Prucell MD 10/02/2025 02:05 PM EST RP Chest X-Ray 10/10/25 13:43 IMPRESSION: No metallic foreign body. EXAMINATION: XR ABDOMEN KUB CLINICAL INDICATION: pre MRI COMPARISON: None available. TECHNIQUE: AP view of the abdomen. FINDINGS: No metallic foreign body. No intestinal bowel obstruction. Multilevel thoracolumbar spondylosis. S-shaped curvature with a levoconvex curvature in the lower lumbar spine. Degenerative changes in the coxofemoral joints. IMPRESSION: No metallic foreign body. Electronically signed by: Patrick Fulton MD 10/10/2025 01:55 PM EST RP Abdomen X-Ray 10/10/25 13:46 IMPRESSION: No metallic foreign body. EXAMINATION: XR ABDOMEN KUB CLINICAL INDICATION: pre MRI COMPARISON: None available. TECHNIQUE: AP view of the abdomen. FINDINGS: No metallic foreign body. No intestinal bowel obstruction. Multilevel thoracolumbar spondylosis. S-shaped curvature with a levoconvex curvature in the lower lumbar spine. Degenerative changes in the coxofemoral joints. IMPRESSION: No metallic foreign body. Electronically signed by: Patrick Fulton MD 10/10/2025 01:55 PM EST RP Brain MRI 10/11/25 13:08 IMPRESSION: 1. No evidence of intracranial hemorrhage, acute infarction, mass effect, or edema. 2. Mild to moderate white matter changes of small vessel ischemia. 3. 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 4. Moderate right maxillary sinus disease. 5. Neuro-quantitative analysis as described above. Please refer to the full neuro-quantitative analysis worksheets attached to this examination for further details. Electronically signed by: Neptali Purcell MD 10/11/2025 03:24 PM EST RP Medications Medications Current Medications Acetaminophen (Acetaminophen 325 Mg Tablet) 650 mg PO Q6H PRN PRN Reason: Headache/Pain, Scale 1-10 Last Admin: 10/12/25 09:52 Dose: 650 mg Al Hydroxide/Mg Hydroxide (Magnesium Hydrox/Alum Hydrox 30 Ml Oral.Susp) 30 ml PO Q6H PRN PRN Reason: Heartburn/Nausea Cyanocobalamin (Cyanocobalamin (Vitamin B-12) 1,000 Mcg Tablet) 1,000 mcg PO DAILY [facility] Last Admin: 10/16/25 08:24 Dose: 1,000 mcg Donepezil HCl (Donepezil Hcl 5 Mg Tablet) 5 mg PO BEDTIME [facility] Last Admin: 10/15/25 20:29 Dose: 5 mg Lisinopril (Lisinopril 20 Mg Tablet) 20 mg PO DAILY [facility]; Protocol Last Admin: 10/16/25 08:25 Dose: 20 mg Lorazepam (Lorazepam 0.5 Mg Tablet) 0.5 mg PO Q8H PRN PRN Reason: Anxiety/RESTLESSNESS Lorazepam (Lorazepam 0.5 Mg Tablet) 0.5 mg PO BID [facility] Last Admin: 10/16/25 08:25 Dose: 0.5 mg Magnesium Hydroxide (Milk Of Magnesia 30 Ml Oral.Susp) 30 ml PO DAILY PRN PRN Reason: Constipation Metoprolol Succinate (Metoprolol Succinate Er 25 Mg Tab.Er.24h) 25 mg PO DAILY [facility]; Protocol Last Admin: 10/16/25 08:24 Dose: 25 mg Mirtazapine (Mirtazapine 7.5 Mg Tablet) 22.5 mg PO BEDTIME [facility] Last Admin: 10/15/25 20:29 Dose: 22.5 mg Risperidone (Risperidone 2 Mg Tablet) 2 mg PO BEDTIME [facility] Last Admin: 10/15/25 20:29 Dose: 2 mg Sertraline HCl (Sertraline Hcl 50 Mg Tablet) 150 mg PO DAILY [facility] Last Admin: 10/16/25 09:00 Dose: 150 mg Allergies Allergies Allergy/AdvReac Type Severity Reaction Status Date / Time No Known Allergies Allergy Verified 10/02/25 12:16 Assessment & Plan Assessment & Plan (1) MDD (major depressive disorder), recurrent, severe, with psychosis: Status: Acute Code(s): F33.3 - Major depressive disorder, recurrent, severe with psychotic symptoms Assessment and Plan: SSRI recently adjusted add Risperdal, risks/benefits/side effects/alternatives discussed with patient/family and determination made to start and titrate 10/06 Increase Sertraline, Remeron, Risperdal titration 10/09 Ativan ordered as PRN not taken Add scheduled Ativan to acutely manage level of anxiety Adjust Risperdal and Mirtazapine Change to 5 monitoring (2) HTN (hypertension): Status: Acute Code(s): I10 - Essential (primary) hypertension (3) Cognitive deficit with impaired psychomotor function: Status: Acute Code(s): R41.89 - Other symptoms and signs involving cognitive functions and awareness; R41.843 - Psychomotor deficit Plan Mr. Yost is a 80 year-old who came to ED due to increase depressed mood, paranoid delusions thinking police was going to shoot him. PLAN 10/05 continue current medications. He has been visible on the unit, still with paranoid ideas although not fully forthcoming. No behavioral concerns.Start risperidone 0.5mg po BID. continue sertraline and remeron 15mg po qhs. Reason for continued inpatient stay Substantial Risk for: inability to function Time Spent With Patient Time: Total time managing care of this patient today ____ minutes.
--- NOTE | 2025-10-16 21:02 | HO.PSYCHPN ---
Subjective Subjective Date of Service: 10/17/25 Reason For Visit: SI,confusion, inability to function, sever depress Healthcare Proxy: Yes Guardianship: No Medical Problems Affecting Mental Status: No Interim History: Again more animated, engages in conversation and is forthcoming. Has been less anxious and affect shows more range. Denies feeling at risk/preoccupied for his safety here. Able to engage in conversation and tolerate psycho-education. Has been sleeping well and compliant with treatment. We have been discussing anxiety/depression/psychosis as well as cognitive/imaging findings He reiterated he preferred to have the information/a diagnosis, it made him less anxious Medication Compliance: Yes Side effects from medications: Yes (mild sedation, less ) Review of Systems Acute medical concerns: No Review of Systems Review of Systems no new complaints Diagnostics Vital Signs (24Hr): Vital Signs - 24 hr 10/16/25 08:19 Temperature 97.8 F Pulse Rate 63 Respiratory Rate 14 Pulse Oximetry 96 Oxygen Delivery Method Room Air BMI result Body Mass Index 27.5 Labs 10/20/25 07:10 10/19/25 10:55 Imaging Radiology Impressions: ITS Impressions Head CT 10/02/25 13:43 IMPRESSION: 1. No acute intracranial abnormality. 2. Partial opacification of the right maxillary sinus with likely old post traumatic changes to the posteroinferior sinus haider. Electronically signed by: Neptali Purcell MD 10/02/2025 02:05 PM EST RP Chest X-Ray 10/10/25 13:43 IMPRESSION: No metallic foreign body. EXAMINATION: XR ABDOMEN KUB CLINICAL INDICATION: pre MRI COMPARISON: None available. TECHNIQUE: AP view of the abdomen. FINDINGS: No metallic foreign body. No intestinal bowel obstruction. Multilevel thoracolumbar spondylosis. S-shaped curvature with a levoconvex curvature in the lower lumbar spine. Degenerative changes in the coxofemoral joints. IMPRESSION: No metallic foreign body. Electronically signed by: Patrick Fulton MD 10/10/2025 01:55 PM EST RP Abdomen X-Ray 10/10/25 13:46 IMPRESSION: No metallic foreign body. EXAMINATION: XR ABDOMEN KUB CLINICAL INDICATION: pre MRI COMPARISON: None available. TECHNIQUE: AP view of the abdomen. FINDINGS: No metallic foreign body. No intestinal bowel obstruction. Multilevel thoracolumbar spondylosis. S-shaped curvature with a levoconvex curvature in the lower lumbar spine. Degenerative changes in the coxofemoral joints. IMPRESSION: No metallic foreign body. Electronically signed by: Patrick Fulton MD 10/10/2025 01:55 PM EST RP Brain MRI 10/11/25 13:08 IMPRESSION: 1. No evidence of intracranial hemorrhage, acute infarction, mass effect, or edema. 2. Mild to moderate white matter changes of small vessel ischemia. 3. 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 4. Moderate right maxillary sinus disease. 5. Neuro-quantitative analysis as described above. Please refer to the full neuro-quantitative analysis worksheets attached to this examination for further details. Electronically signed by: Neptali Purcell MD 10/11/2025 03:24 PM EST RP Medications Medications Current Medications Acetaminophen (Acetaminophen 325 Mg Tablet) 650 mg PO Q6H PRN PRN Reason: Headache/Pain, Scale 1-10 Last Admin: 10/12/25 09:52 Dose: 650 mg Al Hydroxide/Mg Hydroxide (Magnesium Hydrox/Alum Hydrox 30 Ml Oral.Susp) 30 ml PO Q6H PRN PRN Reason: Heartburn/Nausea Cyanocobalamin (Cyanocobalamin (Vitamin B-12) 1,000 Mcg Tablet) 1,000 mcg PO DAILY [facility] Last Admin: 10/16/25 08:24 Dose: 1,000 mcg Donepezil HCl (Donepezil Hcl 5 Mg Tablet) 5 mg PO BEDTIME [facility] Last Admin: 10/15/25 20:29 Dose: 5 mg Lisinopril (Lisinopril 20 Mg Tablet) 20 mg PO DAILY [facility]; Protocol Last Admin: 10/16/25 08:25 Dose: 20 mg Lorazepam (Lorazepam 0.5 Mg Tablet) 0.5 mg PO Q8H PRN PRN Reason: Anxiety/RESTLESSNESS Lorazepam (Lorazepam 0.5 Mg Tablet) 0.5 mg PO BID [facility] Last Admin: 10/16/25 08:25 Dose: 0.5 mg Magnesium Hydroxide (Milk Of Magnesia 30 Ml Oral.Susp) 30 ml PO DAILY PRN PRN Reason: Constipation Metoprolol Succinate (Metoprolol Succinate Er 25 Mg Tab.Er.24h) 25 mg PO DAILY [facility]; Protocol Last Admin: 10/16/25 08:24 Dose: 25 mg Mirtazapine (Mirtazapine 7.5 Mg Tablet) 22.5 mg PO BEDTIME [facility] Last Admin: 10/15/25 20:29 Dose: 22.5 mg Risperidone (Risperidone 2 Mg Tablet) 2 mg PO BEDTIME [facility] Last Admin: 10/15/25 20:29 Dose: 2 mg Sertraline HCl (Sertraline Hcl 50 Mg Tablet) 150 mg PO DAILY [facility] Last Admin: 10/16/25 09:00 Dose: 150 mg Allergies Allergies Allergy/AdvReac Type Severity Reaction Status Date / Time No Known Allergies Allergy Verified 10/02/25 12:16 Assessment & Plan Assessment & Plan (1) MDD (major depressive disorder), recurrent, severe, with psychosis: Status: Acute Code(s): F33.3 - Major depressive disorder, recurrent, severe with psychotic symptoms Assessment and Plan: SSRI recently adjusted add Risperdal, risks/benefits/side effects/alternatives discussed with patient/family and determination made to start and titrate 10/06 Increase Sertraline, Remeron, Risperdal titration 10/09 Ativan ordered as PRN not taken Add scheduled Ativan to acutely manage level of anxiety Adjust Risperdal and Mirtazapine Change to 5 monitoring (2) HTN (hypertension): Status: Acute Code(s): I10 - Essential (primary) hypertension (3) Cognitive deficit with impaired psychomotor function: Status: Acute Code(s): R41.89 - Other symptoms and signs involving cognitive functions and awareness; R41.843 - Psychomotor deficit Plan Mr. Yost is a 80 year-old who came to ED due to increase depressed mood, paranoid delusions thinking police was going to shoot him. PLAN 10/05 continue current medications. He has been visible on the unit, still with paranoid ideas although not fully forthcoming. No behavioral concerns.Start risperidone 0.5mg po BID. continue sertraline and remeron 15mg po qhs. Reason for continued inpatient stay Substantial Risk for: inability to function Time Spent With Patient Time: Total time managing care of this patient today ____ minutes.
[2025-10-17 08:00] VITALS: BP 124/60; PULSE 65; RESP 18; TEMP 36.7; O2SAT 98
[2025-10-17] MEDS: Metoprolol Succinate ER 25 MG TAB.ER.24H PO (08:30)
[2025-10-17 20:00] VITALS: BP 103/55; PULSE 59; RESP 18; TEMP 36.7; O2SAT 98
[2025-10-18 08:00] VITALS: BP 104/62; PULSE 65; RESP 18; TEMP 36.5; O2SAT 97
[2025-10-18] MEDS: Metoprolol Succinate ER 25 MG TAB.ER.24H PO (08:18)
--- NOTE | 2025-10-18 19:13 | P.PNPSI_ITS ---
Subjective Subjective Date of Service: 10/18/25 Reason For Visit: SI,confusion, inability to function, sever depress Healthcare Proxy: Yes Guardianship: No Medical Problems Affecting Mental Status: No Interim History: patient seen with today. He appears better objectively though not asymptomatic. He still presents as anxious, but seems less distraugt, and affect is less restricted and depressed paranoid beliefs not fully abated He has been sleeping better, feels less sedated during day We spoke about his neurocognitive do and depressive symptoms, treatment currently and in future, medication and expectation for continued management, follow up with it communications specialist provider, community services, etc) Patient's feels happy that he is doing much better, and dicussed going home fefore holiday Medication Compliance: Yes Side effects from medications: Yes (sedation, reported as lessening) Attending Groups: Intermittent Review of Systems Acute medical concerns: No Medical Review of Systems: unchanged Review of Systems Review of Systems Denies any shortness of breath, chest pain, headaches, dysuria, abdominal pain or discomfort, nausea, vomiting or diarrhea. Denies fever or chills. Yes Unobtainable due to mental status and Other (limited, patient guarded, vague---ROS per medical/psych HPI) Constitutional: Reports as per HPI (see medicine evaluation) Eyes: Reports as per HPI Reports as per HPI Reports behavioral changes and Reports confusion Psychiatric: Reports abnormal sleep pattern, Reports anxiety, Reports behavioral changes, Reports change in appetite, Reports confusion, Reports depression, Reports difficulty concentrating, Reports hopelessness, Reports anhedonia, Reports paranoia, Reports hallucinations and Reports suicidal ideation (without current plan/intent---) Mental Status Exam Mental Status Exam Narrative: Appearance: better hygiene and grooming, shaven Behavior: cooperative Memory/cog: alert, oriented to person, place, date Psychomotor: calmer, no agitation Speech: clear, normal rate/rhythm/volume, less hesitant TP: linear, long responses on 1:1, with minimal if any latency. Seems comparatively less spontaneous, more hesitant in group conversation TC: persecutory delusions appear less evident Mood: better anxious Affect: less anxious/depressed, less constricted SI: denies HI: denies VH/AH: misperceptions Insight/judgment: impaired/improving Diagnostics Vital Signs (24Hr): Vital Signs - 24 hr 10/17/25 20:00 10/18/25 08:00 Temperature 98.1 F 97.7 F Pulse Rate 59 65 Respiratory Rate 18 18 Blood Pressure 103/55 L 104/62 Pulse Oximetry 98 97 Oxygen Delivery Method Room Air Room Air BMI result Body Mass Index 27.5 Labs 10/13/25 07:27 10/19/25 10:55 Imaging Radiology Impressions: ITS Impressions Head CT 10/02/25 13:43 IMPRESSION: 1. No acute intracranial abnormality. 2. Partial opacification of the right maxillary sinus with likely old post traumatic changes to the posteroinferior sinus haider. Electronically signed by: Neptali Purcell MD 10/02/2025 02:05 PM EST RP Chest X-Ray 10/10/25 13:43 IMPRESSION: No metallic foreign body. EXAMINATION: XR ABDOMEN KUB CLINICAL INDICATION: pre MRI COMPARISON: None available. TECHNIQUE: AP view of the abdomen. FINDINGS: No metallic foreign body. No intestinal bowel obstruction. Multilevel thoracolumbar spondylosis. S-shaped curvature with a levoconvex curvature in the lower lumbar spine. Degenerative changes in the coxofemoral joints. IMPRESSION: No metallic foreign body. Electronically signed by: Patrick Fulton MD 10/10/2025 01:55 PM EST RP Abdomen X-Ray 10/10/25 13:46 IMPRESSION: No metallic foreign body. EXAMINATION: XR ABDOMEN KUB CLINICAL INDICATION: pre MRI COMPARISON: None available. TECHNIQUE: AP view of the abdomen. FINDINGS: No metallic foreign body. No intestinal bowel obstruction. Multilevel thoracolumbar spondylosis. S-shaped curvature with a levoconvex curvature in the lower lumbar spine. Degenerative changes in the coxofemoral joints. IMPRESSION: No metallic foreign body. Electronically signed by: Patrick Fulton MD 10/10/2025 01:55 PM EST RP Brain MRI 10/11/25 13:08 IMPRESSION: 1. No evidence of intracranial hemorrhage, acute infarction, mass effect, or edema. 2. Mild to moderate white matter changes of small vessel ischemia. 3. 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 4. Moderate right maxillary sinus disease. 5. Neuro-quantitative analysis as described above. Please refer to the full neuro-quantitative analysis worksheets attached to this examination for further details. Electronically signed by: Neptali Purcell MD 10/11/2025 03:24 PM [facility] Medications Medications Current Medications Acetaminophen (Acetaminophen 325 Mg Tablet) 650 mg PO Q6H PRN PRN Reason: Headache/Pain, Scale 1-10 Last Admin: 10/12/25 09:52 Dose: 650 mg Al Hydroxide/Mg Hydroxide (Magnesium Hydrox/Alum Hydrox 30 Ml Oral.Susp) 30 ml PO Q6H PRN PRN Reason: Heartburn/Nausea Cyanocobalamin (Cyanocobalamin (Vitamin B-12) 1,000 Mcg Tablet) 1,000 mcg PO DAILY [facility] Last Admin: 10/18/25 08:18 Dose: 1,000 mcg Donepezil HCl (Donepezil Hcl 5 Mg Tablet) 5 mg PO BEDTIME [facility] Last Admin: 10/17/25 20:18 Dose: 5 mg Lisinopril (Lisinopril 20 Mg Tablet) 20 mg PO DAILY [facility]; Protocol Last Admin: 10/18/25 08:18 Dose: 20 mg Lorazepam (Lorazepam 0.5 Mg Tablet) 0.5 mg PO Q8H PRN PRN Reason: Anxiety/RESTLESSNESS Lorazepam (Lorazepam 0.5 Mg Tablet) 0.5 mg PO BID [facility]Z Last Admin: 10/18/25 08:18 Dose: 0.5 mg Magnesium Hydroxide (Milk Of Magnesia 30 Ml Oral.Susp) 30 ml PO DAILY PRN PRN Reason: Constipation Metoprolol Succinate (Metoprolol Succinate Er 25 Mg Tab.Er.24h) 25 mg PO DAILY [facility]Z; Protocol Last Admin: 10/18/25 08:18 Dose: 25 mg Mirtazapine (Mirtazapine 7.5 Mg Tablet) 22.5 mg PO BEDTIME [facility]Z Last Admin: 10/17/25 20:19 Dose: 22.5 mg Risperidone (Risperidone 2 Mg Tablet) 2 mg PO BEDTIME [facility]Z Last Admin: 10/17/25 20:19 Dose: 2 mg Sertraline HCl (Sertraline Hcl 50 Mg Tablet) 150 mg PO DAILY [facility] Last Admin: 10/18/25 08:18 Dose: 150 mg Allergies Allergies Allergy/AdvReac Type Severity Reaction Status Date / Time No Known Allergies Allergy Verified 10/02/25 12:16 Assessment & Plan Assessment & Plan (1) MDD (major depressive disorder), recurrent, severe, with psychosis: Status: Acute Code(s): F33.3 - Major depressive disorder, recurrent, severe with psychotic symptoms Assessment and Plan: SSRI recently adjusted add Risperdal, risks/benefits/side effects/alternatives discussed with patient/family and determination made to start and titrate 10/06 Increase Sertraline, Remeron, Risperdal titration 10/09 Ativan ordered as PRN not taken Add scheduled Ativan to acutely manage level of anxiety Adjust Risperdal and Mirtazapine Change to 5 monitoring (2) HTN (hypertension): Status: Acute Code(s): I10 - Essential (primary) hypertension (3) Cognitive deficit with impaired psychomotor function: Status: Acute Code(s): R41.89 - Other symptoms and signs involving cognitive functions and awareness; R41.843 - Psychomotor deficit Plan Mr. Yost is a 80 year-old who came to ED due to increase depressed mood, paranoid delusions thinking police was going to shoot him. PLAN 10/05 continue current medications. He has been visible on the unit, still with paranoid ideas although not fully forthcoming. No behavioral concerns.Start risperidone 0.5mg po BID. continue sertraline and remeron 15mg po qhs. Patient educated on: diagnosis, medication risk/benefits, therapeutic strategies and medical condition Guardian/Caregiver educated on: diagnosis, medication risk/benefits, therapeutic strategies and medical condition Informed Consent: understands and further education needed Reason for continued inpatient stay Substantial Risk for: inability to function and other (ongoing though less severe symptoms, safety and aftrcare plans) Time Spent With Patient Time: Total time managing care of this patient today __45__ minutes.
--- NOTE | 2025-10-18 19:13 | P.PNPSI_ITS ---
Subjective Subjective Date of Service: 10/16/25 Reason For Visit: SI,confusion, inability to function, sever depress Interim History: still constricted affect but more open to answering questions/providing history re Review of Systems Review of Systems sedated, odd feeling thinks due medications Yes Unobtainable due to mental status and Other (limited, patient guarded, vague---ROS per medical/psych HPI) Constitutional: Reports as per HPI (see medicine evaluation) Eyes: Reports as per HPI Reports as per HPI Reports behavioral changes and Reports confusion Psychiatric: Reports abnormal sleep pattern, Reports anxiety, Reports behavioral changes, Reports change in appetite, Reports confusion, Reports depression, Reports difficulty concentrating, Reports hopelessness, Reports anhedonia, Reports paranoia, Reports hallucinations and Reports suicidal ideation (without current plan/intent---) Mental Status Exam Mental Status Exam Narrative: Appearance: wearing casual clothing, appropriated hygiene, in NAD Behavior: cooperative, pleasant Memory/cog: alert, oriented to person, place, date; Psychomotor: no agitation or retardation noted Speech: clear, normal rate/rhythm/volume, spontaneous TP: linear TC: future oriented, no delusional content voiced or endorsed, looking forward to spending holiday with family. No hopelessness/helplessness/worthlessness/gult. Says he is thankful for getting treatment Mood: I'm better Affect:Brighter, mildly constricted SI: denies active/passive/ wishes or fantasies HI: denies VH/AH: denies Delusions: none evinced Insight/judgment: Accepts need for treatment and f/u understands history of depression and NCS Diagnostics Vital Signs (24Hr): Vital Signs - 24 hr 10/17/25 20:00 10/18/25 08:00 Temperature 98.1 F 97.7 F Pulse Rate 59 65 Respiratory Rate 18 18 Blood Pressure 103/55 L 104/62 Pulse Oximetry 98 97 Oxygen Delivery Method Room Air Room Air BMI result Body Mass Index 27.5 Labs 10/20/25 07:10 10/19/25 10:55 Imaging Radiology Impressions: ITS Impressions Head CT 10/02/25 13:43 IMPRESSION: 1. No acute intracranial abnormality. 2. Partial opacification of the right maxillary sinus with likely old post traumatic changes to the posteroinferior sinus haider. Electronically signed by: Neptali Purcell MD 10/02/2025 02:05 PM EST RP Chest X-Ray 10/10/25 13:43 IMPRESSION: No metallic foreign body. EXAMINATION: XR ABDOMEN KUB CLINICAL INDICATION: pre MRI COMPARISON: None available. TECHNIQUE: AP view of the abdomen. FINDINGS: No metallic foreign body. No intestinal bowel obstruction. Multilevel thoracolumbar spondylosis. S-shaped curvature with a levoconvex curvature in the lower lumbar spine. Degenerative changes in the coxofemoral joints. IMPRESSION: No metallic foreign body. Electronically signed by: Patrick Fulton MD 10/10/2025 01:55 PM EST RP Abdomen X-Ray 10/10/25 13:46 IMPRESSION: No metallic foreign body. EXAMINATION: XR ABDOMEN KUB CLINICAL INDICATION: pre MRI COMPARISON: None available. TECHNIQUE: AP view of the abdomen. FINDINGS: No metallic foreign body. No intestinal bowel obstruction. Multilevel thoracolumbar spondylosis. S-shaped curvature with a levoconvex curvature in the lower lumbar spine. Degenerative changes in the coxofemoral joints. IMPRESSION: No metallic foreign body. Electronically signed by: Patrick Fulton MD 10/10/2025 01:55 PM EST RP Brain MRI 10/11/25 13:08 IMPRESSION: 1. No evidence of intracranial hemorrhage, acute infarction, mass effect, or edema. 2. Mild to moderate white matter changes of small vessel ischemia. 3. 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 4. Moderate right maxillary sinus disease. 5. Neuro-quantitative analysis as described above. Please refer to the full neuro-quantitative analysis worksheets attached to this examination for further details. Electronically signed by: Neptali Purcell MD 10/11/2025 03:24 PM EST RP Medications Medications Current Medications Acetaminophen (Acetaminophen 325 Mg Tablet) 650 mg PO Q6H PRN PRN Reason: Headache/Pain, Scale 1-10 Last Admin: 10/12/25 09:52 Dose: 650 mg Al Hydroxide/Mg Hydroxide (Magnesium Hydrox/Alum Hydrox 30 Ml Oral.Susp) 30 ml PO Q6H PRN PRN Reason: Heartburn/Nausea Cyanocobalamin (Cyanocobalamin (Vitamin B-12) 1,000 Mcg Tablet) 1,000 mcg PO DAILY [facility] Last Admin: 10/18/25 08:18 Dose: 1,000 mcg Donepezil HCl (Donepezil Hcl 5 Mg Tablet) 5 mg PO BEDTIME LIZ Last Admin: 10/17/25 20:18 Dose: 5 mg Lisinopril (Lisinopril 20 Mg Tablet) 20 mg PO DAILY [facility]; Protocol Last Admin: 10/18/25 08:18 Dose: 20 mg Lorazepam (Lorazepam 0.5 Mg Tablet) 0.5 mg PO Q8H PRN PRN Reason: Anxiety/RESTLESSNESS Lorazepam (Lorazepam 0.5 Mg Tablet) 0.5 mg PO BID [facility] Last Admin: 10/18/25 08:18 Dose: 0.5 mg Magnesium Hydroxide (Milk Of Magnesia 30 Ml Oral.Susp) 30 ml PO DAILY PRN PRN Reason: Constipation Metoprolol Succinate (Metoprolol Succinate Er 25 Mg Tab.Er.24h) 25 mg PO DAILY [facility]; Protocol Last Admin: 10/18/25 08:18 Dose: 25 mg Mirtazapine (Mirtazapine 7.5 Mg Tablet) 22.5 mg PO BEDTIME [facility]Z Last Admin: 10/17/25 20:19 Dose: 22.5 mg Risperidone (Risperidone 2 Mg Tablet) 2 mg PO BEDTIME [facility] Last Admin: 10/17/25 20:19 Dose: 2 mg Sertraline HCl (Sertraline Hcl 50 Mg Tablet) 150 mg PO DAILY [facility] Last Admin: 10/18/25 08:18 Dose: 150 mg Allergies Allergies Allergy/AdvReac Type Severity Reaction Status Date / Time No Known Allergies Allergy Verified 10/02/25 12:16 Assessment & Plan Assessment & Plan (1) MDD (major depressive disorder), recurrent, severe, with psychosis: Status: Acute Code(s): F33.3 - Major depressive disorder, recurrent, severe with psychotic symptoms Assessment and Plan: SSRI recently adjusted add Risperdal, risks/benefits/side effects/alternatives discussed with patient/family and determination made to start and titrate 10/06 Increase Sertraline, Remeron, Risperdal titration 10/09 Ativan ordered as PRN not taken Add scheduled Ativan to acutely manage level of anxiety Adjust Risperdal and Mirtazapine Change to 5 monitoring (2) HTN (hypertension): Status: Acute Code(s): I10 - Essential (primary) hypertension (3) Cognitive deficit with impaired psychomotor function: Status: Acute Code(s): R41.89 - Other symptoms and signs involving cognitive functions and awareness; R41.843 - Psychomotor deficit Plan Mr. Yost is a 80 year-old who came to ED due to increase depressed mood, paranoid delusions thinking police was going to shoot him. PLAN 10/05 continue current medications. He has been visible on the unit, still with paranoid ideas although not fully forthcoming. No behavioral concerns.Start risperidone 0.5mg po BID. continue sertraline and remeron 15mg po qhs. Time Spent With Patient Time: Total time managing care of this patient today ____ minutes.
[2025-10-18 20:03] VITALS: BP 117/55; PULSE 60; RESP 16; TEMP 36.4; O2SAT 98
[2025-10-19 08:00] VITALS: BP 130/57; PULSE 60; RESP 16; TEMP 36.2
[2025-10-19] MEDS: Metoprolol Succinate ER 25 MG TAB.ER.24H PO (09:07)
[2025-10-19 11:29] LABS: Anion Gap 8 (12-20); Blood Urea Nitrogen 25 mg/dL (9-16); Calcium 8.9 mg/dL (8.4-10.2); Carbon Dioxide 28 mmol/L (22-29); Chloride 110 mmol/L (96-108); Creatinine Clr Calc Pharmacy 73.2; Estimated Glomerular Filt Rate > 60; Potassium 4.2 mmol/L (3.3-5.1); Sodium 142 mmol/L (135-145)
[2025-10-19 12:48] VITALS: BMI 27.7
--- NOTE | 2025-10-19 13:31 | HO.PSYCHPN ---
Subjective Subjective Date of Service: 10/19/25 Reason For Visit: SI,confusion, inability to function, sever depress Subjective Notes: Conditional Voluntary Healthcare Proxy: Yes Interim History: Patient has been cooperative cooperative more active in the milieu accepting treatment no aggressive or suicidal behavior Medication Compliance: Yes Review of Systems Acute medical concerns: No Mental Status Exam Mental Status Exam Narrative: Appearance: wearing casual clothing, good hygiene, in NAD Behavior: cooperative Memory/cog: alert, oriented to person, place, date; Psychomotor: no agitation or retardation noted Speech: clear, normal rate/rhythm/volume, spontaneous TP: linear TC: worried about needing admission hopeful regarding discharge Mood: alright, a little better SI: denies HI: denies VH/AH: denies Delusions: none evinced today Insight/judgment: Accepts need for treatment understands history of depression Diagnostics Vital Signs (24Hr): Vital Signs - 24 hr 10/18/25 20:03 10/19/25 08:00 Temperature 97.5 F 97.2 F Pulse Rate 60 60 Respiratory Rate 16 16 Blood Pressure 117/55 L 130/57 L Pulse Oximetry 98 Oxygen Delivery Method Room Air BMI result Body Mass Index 27.7 Labs 10/20/25 07:10 10/19/25 10:55 Labs: Laboratory Results - last 48 hr 10/19/25 10:55 Sodium 142 Potassium 4.2 Chloride 110 H Carbon Dioxide 28 Anion Gap 8 L BUN 25 H Creatinine 0.84 Estim Creat Clear Calc 73.2 Estimated GFR > 60 Random Glucose 87 Calcium 8.9 Imaging Radiology Impressions: ITS Impressions Head CT 10/02/25 13:43 IMPRESSION: 1. No acute intracranial abnormality. 2. Partial opacification of the right maxillary sinus with likely old post traumatic changes to the posteroinferior sinus haider. Electronically signed by: Neptali Purcell MD 10/02/2025 02:05 PM [facility] Chest X-Ray 10/10/25 13:43 IMPRESSION: No metallic foreign body. EXAMINATION: XR ABDOMEN KUB CLINICAL INDICATION: pre MRI COMPARISON: None available. TECHNIQUE: AP view of the abdomen. FINDINGS: No metallic foreign body. No intestinal bowel obstruction. Multilevel thoracolumbar spondylosis. S-shaped curvature with a levoconvex curvature in the lower lumbar spine. Degenerative changes in the coxofemoral joints. IMPRESSION: No metallic foreign body. Electronically signed by: Patrick Fulton MD 10/10/2025 01:55 PM EST RP Abdomen X-Ray 10/10/25 13:46 IMPRESSION: No metallic foreign body. EXAMINATION: XR ABDOMEN KUB CLINICAL INDICATION: pre MRI COMPARISON: None available. TECHNIQUE: AP view of the abdomen. FINDINGS: No metallic foreign body. No intestinal bowel obstruction. Multilevel thoracolumbar spondylosis. S-shaped curvature with a levoconvex curvature in the lower lumbar spine. Degenerative changes in the coxofemoral joints. IMPRESSION: No metallic foreign body. Electronically signed by: Patrick Fulton MD 10/10/2025 01:55 PM EST RP Brain MRI 10/11/25 13:08 IMPRESSION: 1. No evidence of intracranial hemorrhage, acute infarction, mass effect, or edema. 2. Mild to moderate white matter changes of small vessel ischemia. 3. 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 4. Moderate right maxillary sinus disease. 5. Neuro-quantitative analysis as described above. Please refer to the full neuro-quantitative analysis worksheets attached to this examination for further details. Electronically signed by: Neptali Purcell MD 10/11/2025 03:24 PM EST RP Medications Medications Current Medications Acetaminophen (Acetaminophen 325 Mg Tablet) 650 mg PO Q6H PRN PRN Reason: Headache/Pain, Scale 1-10 Last Admin: 10/12/25 09:52 Dose: 650 mg Al Hydroxide/Mg Hydroxide (Magnesium Hydrox/Alum Hydrox 30 Ml Oral.Susp) 30 ml PO Q6H PRN PRN Reason: Heartburn/Nausea Cyanocobalamin (Cyanocobalamin (Vitamin B-12) 1,000 Mcg Tablet) 1,000 mcg PO DAILY [facility] Last Admin: 10/19/25 10:16 Dose: 1,000 mcg Donepezil HCl (Donepezil Hcl 5 Mg Tablet) 5 mg PO BEDTIME [facility] Last Admin: 10/18/25 19:59 Dose: 5 mg Lisinopril (Lisinopril 20 Mg Tablet) 20 mg PO DAILY [facility]; Protocol Last Admin: 10/19/25 09:07 Dose: 20 mg Lorazepam (Lorazepam 0.5 Mg Tablet) 0.5 mg PO Q8H PRN PRN Reason: Anxiety/RESTLESSNESS Lorazepam (Lorazepam 0.5 Mg Tablet) 0.5 mg PO BID [facility] Last Admin: 10/19/25 09:10 Dose: 0.5 mg Magnesium Hydroxide (Milk Of Magnesia 30 Ml Oral.Susp) 30 ml PO DAILY PRN PRN Reason: Constipation Metoprolol Succinate (Metoprolol Succinate Er 25 Mg Tab.Er.24h) 25 mg PO DAILY [facility]; Protocol Last Admin: 10/19/25 09:07 Dose: 25 mg Mirtazapine (Mirtazapine 7.5 Mg Tablet) 22.5 mg PO BEDTIME [facility] Last Admin: 10/18/25 19:59 Dose: 22.5 mg Risperidone (Risperidone 2 Mg Tablet) 2 mg PO BEDTIME [facility] Last Admin: 10/18/25 19:59 Dose: 2 mg Sertraline HCl (Sertraline Hcl 50 Mg Tablet) 150 mg PO DAILY [facility] Last Admin: 10/19/25 09:08 Dose: 150 mg Allergies Allergies Allergy/AdvReac Type Severity Reaction Status Date / Time No Known Allergies Allergy Verified 10/02/25 12:16 Assessment & Plan Assessment & Plan (1) MDD (major depressive disorder), recurrent, severe, with psychosis: Status: Acute Code(s): F33.3 - Major depressive disorder, recurrent, severe with psychotic symptoms Assessment and Plan: SSRI recently adjusted add Risperdal, risks/benefits/side effects/alternatives discussed with patient/family and determination made to start and titrate 10/06 Increase Sertraline, Remeron, Risperdal titration 10/09 Ativan ordered as PRN not taken Add scheduled Ativan to acutely manage level of anxiety Adjust Risperdal and Mirtazapine Change to 5 monitoring 10/19/2025 Continue Risperdal mirtazapine patient showing clear improvement continue discharge planning and aftercare no complaints of side effects (2) HTN (hypertension): Status: Acute Code(s): I10 - Essential (primary) hypertension (3) Cognitive deficit with impaired psychomotor function: Status: Acute Code(s): R41.89 - Other symptoms and signs involving cognitive functions and awareness; R41.843 - Psychomotor deficit Plan Mr. Yost is a 80 year-old who came to ED due to increase depressed mood, paranoid delusions thinking police was going to shoot him. PLAN 10/05 continue current medications. He has been visible on the unit, still with paranoid ideas although not fully forthcoming. No behavioral concerns.Start risperidone 0.5mg po BID. continue sertraline and remeron 15mg po qhs. Patient educated on: diagnosis and medication risk/benefits Informed Consent: further education needed Reason for continued inpatient stay Substantial Risk for: inability to function and rapid decompensation Time Spent With Patient Time: Total time managing care of this patient today _30___ minutes.
[2025-10-19 20:00] VITALS: BP 109/58; PULSE 63; RESP 17; TEMP 36.6; O2SAT 97
[2025-10-20 07:38] LABS: MANUAL DIFF FLAG NO
[2025-10-20 07:44] LABS: Hematocrit 39.1 % (42.0-52.0); Hemoglobin 13.3 g/dl (14.0-18.0); Imm Gran Abs Auto 0.18 X10*3/uL (0.00-0.03); Imm Gran Pct Auto 2.3 % (0.0-0.4); Lymphocytes Absolute Auto 1.9 X10*3/uL (1.2-4.9); Mean Corpuscular HGB Conc 34.0 g/dl (31.0-36.0); Mean Corpuscular Hemoglobin 32.4 pg (27.0-33.0); Mean Corpuscular Volume 95.1 fL (80.0-98.0); NRBC Abs Auto 0.000 X10*3/uL (0.0-0.012); NRBC Pct Auto 0.0 /100WBC (0.0-0.2); Platelet Count 190 X10*3/uL (160-400); Red Blood Count 4.11 X10*6/uL (4.60-5.80); White Blood Count 7.7 X10*3/uL (4.8-10.8)
[2025-10-20 08:30] VITALS: BP 118/57; PULSE 60; RESP 16; TEMP 36.7; O2SAT 97
[2025-10-20 08:57] VITALS: BP 118/57; PULSE 60
[2025-10-20] MEDS: Metoprolol Succinate ER 25 MG TAB.ER.24H PO (08:57)
--- NOTE | 2025-10-20 16:04 | P.PNPSI_ITS ---
Subjective Subjective Date of Service: 10/19/25 Reason For Visit: SI,confusion, inability to function, sever depress Subjective Notes: Conditional Voluntary Healthcare Proxy: Yes Interim History: Patient has been cooperative cooperative more active in the milieu accepting treatment no aggressive or suicidal behavior Medication Compliance: Yes Review of Systems Acute medical concerns: No Diagnostics Vital Signs (24Hr): Vital Signs - 24 hr 10/19/25 20:00 10/20/25 08:30 10/20/25 08:57 Temperature 97.9 F 98.1 F Pulse Rate 63 60 Respiratory Rate 17 16 Blood Pressure 109/58 L 118/57 L 118/57 L Pulse Oximetry 97 97 Oxygen Delivery Method Room Air Room Air 10/20/25 08:57 Temperature Pulse Rate 60 Respiratory Rate Blood Pressure 118/57 L Pulse Oximetry Oxygen Delivery Method BMI result Body Mass Index 27.7 Labs 10/20/25 07:10 10/19/25 10:55 Labs: Laboratory Results - last 48 hr 10/19/25 10/20/25 10:55 07:10 WBC 7.7 RBC 4.11 L Hgb 13.3 L Hct 39.1 L MCV 95.1 MCH 32.4 MCHC 34.0 RDW 11.3 Plt Count 190 MPV 9.7 Immature Gran % (Auto) 2.3 H Neut % (Auto) 59.0 Lymph % (Auto) 24.2 [place] % (Auto) 11.2 H Eos % (Auto) 2.7 Baso % (Auto) 0.6 Lymph # (Auto) 1.9 [place] # (Auto) 0.9 Eos # (Auto) 0.2 Baso # (Auto) 0.1 Abs Immat Gran (auto) 0.18 H Absolute Neuts (auto) 4.6 Absolute Nucleated RBC 0.000 Nucleated RBC % (auto) 0.0 Sodium 142 Potassium 4.2 Chloride 110 H Carbon Dioxide 28 Anion Gap 8 L BUN 25 H Creatinine 0.84 Estim Creat Clear Calc 73.2 Estimated GFR > 60 Random Glucose 87 Calcium 8.9 Imaging Radiology Impressions: ITS Impressions Head CT 10/02/25 13:43 IMPRESSION: 1. No acute intracranial abnormality. 2. Partial opacification of the right maxillary sinus with likely old post traumatic changes to the posteroinferior sinus haider. Electronically signed by: Neptali Purcell MD 10/02/2025 02:05 PM EST RP Chest X-Ray 10/10/25 13:43 IMPRESSION: No metallic foreign body. EXAMINATION: XR ABDOMEN KUB CLINICAL INDICATION: pre MRI COMPARISON: None available. TECHNIQUE: AP view of the abdomen. FINDINGS: No metallic foreign body. No intestinal bowel obstruction. Multilevel thoracolumbar spondylosis. S-shaped curvature with a levoconvex curvature in the lower lumbar spine. Degenerative changes in the coxofemoral joints. IMPRESSION: No metallic foreign body. Electronically signed by: Patrick Fulton MD 10/10/2025 01:55 PM EST RP Abdomen X-Ray 10/10/25 13:46 IMPRESSION: No metallic foreign body. EXAMINATION: XR ABDOMEN KUB CLINICAL INDICATION: pre MRI COMPARISON: None available. TECHNIQUE: AP view of the abdomen. FINDINGS: No metallic foreign body. No intestinal bowel obstruction. Multilevel thoracolumbar spondylosis. S-shaped curvature with a levoconvex curvature in the lower lumbar spine. Degenerative changes in the coxofemoral joints. IMPRESSION: No metallic foreign body. Electronically signed by: Patrick Fulton MD 10/10/2025 01:55 PM EST RP Brain MRI 10/11/25 13:08 IMPRESSION: 1. No evidence of intracranial hemorrhage, acute infarction, mass effect, or edema. 2. Mild to moderate white matter changes of small vessel ischemia. 3. 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 4. Moderate right maxillary sinus disease. 5. Neuro-quantitative analysis as described above. Please refer to the full neuro-quantitative analysis worksheets attached to this examination for further details. Electronically signed by: Neptali Purcell MD 10/11/2025 03:24 PM EST RP Medications Medications Current Medications Acetaminophen (Acetaminophen 325 Mg Tablet) 650 mg PO Q6H PRN PRN Reason: Headache/Pain, Scale 1-10 Last Admin: 10/12/25 09:52 Dose: 650 mg Al Hydroxide/Mg Hydroxide (Magnesium Hydrox/Alum Hydrox 30 Ml Oral.Susp) 30 ml PO Q6H PRN PRN Reason: Heartburn/Nausea Cyanocobalamin (Cyanocobalamin (Vitamin B-12) 1,000 Mcg Tablet) 1,000 mcg PO DAILY [facility] Last Admin: 10/20/25 08:58 Dose: 1,000 mcg Donepezil HCl (Donepezil Hcl 5 Mg Tablet) 5 mg PO BEDTIME [facility] Last Admin: 10/19/25 20:08 Dose: 5 mg Lisinopril (Lisinopril 20 Mg Tablet) 20 mg PO DAILY [facility]; Protocol Last Admin: 10/20/25 08:57 Dose: 20 mg Lorazepam (Lorazepam 0.5 Mg Tablet) 0.5 mg PO Q8H PRN PRN Reason: Anxiety/RESTLESSNESS Lorazepam (Lorazepam 0.5 Mg Tablet) 0.5 mg PO BID [facility] Last Admin: 10/20/25 08:58 Dose: 0.5 mg Magnesium Hydroxide (Milk Of Magnesia 30 Ml Oral.Susp) 30 ml PO DAILY PRN PRN Reason: Constipation Metoprolol Succinate (Metoprolol Succinate Er 25 Mg Tab.Er.24h) 25 mg PO DAILY [facility]; Protocol Last Admin: 10/20/25 08:57 Dose: 25 mg Mirtazapine (Mirtazapine 7.5 Mg Tablet) 22.5 mg PO BEDTIME [facility] Last Admin: 10/19/25 20:08 Dose: 22.5 mg Risperidone (Risperidone 2 Mg Tablet) 2 mg PO BEDTIME [facility] Last Admin: 10/19/25 20:08 Dose: 2 mg Sertraline HCl (Sertraline Hcl 50 Mg Tablet) 150 mg PO DAILY [facility] Last Admin: 10/20/25 08:58 Dose: 150 mg Allergies Allergies Allergy/AdvReac Type Severity Reaction Status Date / Time No Known Allergies Allergy Verified 10/02/25 12:16 Assessment & Plan Assessment & Plan (1) MDD (major depressive disorder), recurrent, severe, with psychosis: Status: Acute Code(s): F33.3 - Major depressive disorder, recurrent, severe with psychotic symptoms Assessment and Plan: SSRI recently adjusted add Risperdal, risks/benefits/side effects/alternatives discussed with patient/family and determination made to start and titrate 10/06 Increase Sertraline, Remeron, Risperdal titration 10/09 Ativan ordered as PRN not taken Add scheduled Ativan to acutely manage level of anxiety Adjust Risperdal and Mirtazapine Change to 5 monitoring 10/19/2025 Continue Risperdal mirtazapine patient showing clear improvement continue discharge planning and aftercare no complaints of side effects (2) HTN (hypertension): Status: Acute Code(s): I10 - Essential (primary) hypertension (3) Cognitive deficit with impaired psychomotor function: Status: Acute Code(s): R41.89 - Other symptoms and signs involving cognitive functions and awareness; R41.843 - Psychomotor deficit Plan Mr. Yost is a 80 year-old who came to ED due to increase depressed mood, paranoid delusions thinking police was going to shoot him. PLAN 10/05 continue current medications. He has been visible on the unit, still with paranoid ideas although not fully forthcoming. No behavioral concerns.Start risperidone 0.5mg po BID. continue sertraline and remeron 15mg po qhs. Time Spent With Patient Time: Total time managing care of this patient today ____ minutes.
--- NOTE | 2025-10-20 18:23 | HO.PSYCHPN ---
Subjective Subjective Date of Service: 10/20/25 Reason For Visit: SI,confusion, inability to function, sever depress Interim History: Seen with son today Ongoing review of dx, course of tx, medication regime, indications/risks/benefit/side effects and lenght of treatment. Patient feels and appears objectively better, without level of distress, anxiety and depression. No overt delusions. In recent 1:1 conversations displays emergence of reality testing regarding previous beliefs and sense of guilt, indicating he feels relieved by identifying what he was experiencing as far learning what he was experiencing. He absolutely denies SI, plan or intent and is agreeable with not having firearms at home again. Brighter mood and outlook on life Medication Compliance: Yes Side effects from medications: No Review of Systems Review of Systems sedated, odd feeling thinks due medications Yes Unobtainable due to mental status and Other (limited, patient guarded, vague---ROS per medical/psych HPI) Constitutional: Reports as per HPI (see medicine evaluation) Eyes: Reports as per HPI Reports as per HPI Reports behavioral changes and Reports confusion Psychiatric: Reports abnormal sleep pattern, Reports anxiety, Reports behavioral changes, Reports change in appetite, Reports confusion, Reports depression, Reports difficulty concentrating, Reports hopelessness, Reports anhedonia, Reports paranoia, Reports hallucinations and Reports suicidal ideation (without current plan/intent---) Mental Status Exam Mental Status Exam Narrative: Appearance: wearing casual clothing, appropriated hygiene, in NAD Behavior: cooperative, pleasant Memory/cog: alert, oriented to person, place, date; Psychomotor: no agitation or retardation noted Speech: clear, normal rate/rhythm/volume, spontaneous TP: linear TC: future oriented, no delusional content voiced or endorsed, looking forward to spending holiday with family. No hopelessness/helplessness/worthlessness/gult. Says he is thankful for getting treatment Mood: I'm better Affect:Brighter, mildly constricted SI: denies active/passive/ wishes or fantasies HI: denies VH/AH: denies Delusions: none evinced Insight/judgment: Accepts need for treatment and f/u understands history of depression and NCS Diagnostics Vital Signs (24Hr): Vital Signs - 24 hr 10/19/25 20:00 10/20/25 08:30 10/20/25 08:57 Temperature 97.9 F 98.1 F Pulse Rate 63 60 Respiratory Rate 17 16 Blood Pressure 109/58 L 118/57 L 118/57 L Pulse Oximetry 97 97 Oxygen Delivery Method Room Air Room Air 10/20/25 08:57 Temperature Pulse Rate 60 Respiratory Rate Blood Pressure 118/57 L Pulse Oximetry Oxygen Delivery Method BMI result Body Mass Index 27.7 Labs 10/20/25 07:10 10/19/25 10:55 Labs: Laboratory Results - last 48 hr 10/19/25 10/20/25 10:55 07:10 WBC 7.7 RBC 4.11 L Hgb 13.3 L Hct 39.1 L MCV 95.1 MCH 32.4 MCHC 34.0 RDW 11.3 Plt Count 190 MPV 9.7 Immature Gran % (Auto) 2.3 H Neut % (Auto) 59.0 Lymph % (Auto) 24.2 [place] % (Auto) 11.2 H Eos % (Auto) 2.7 Baso % (Auto) 0.6 Lymph # (Auto) 1.9 [place] # (Auto) 0.9 Eos # (Auto) 0.2 Baso # (Auto) 0.1 Abs Immat Gran (auto) 0.18 H Absolute Neuts (auto) 4.6 Absolute Nucleated RBC 0.000 Nucleated RBC % (auto) 0.0 Sodium 142 Potassium 4.2 Chloride 110 H Carbon Dioxide 28 Anion Gap 8 L BUN 25 H Creatinine 0.84 Estim Creat Clear Calc 73.2 Estimated GFR > 60 Random Glucose 87 Calcium 8.9 Imaging Radiology Impressions: ITS Impressions Head CT 10/02/25 13:43 IMPRESSION: 1. No acute intracranial abnormality. 2. Partial opacification of the right maxillary sinus with likely old post traumatic changes to the posteroinferior sinus haider. Electronically signed by: Neptali Purcell MD 10/02/2025 02:05 PM [facility] Chest X-Ray 10/10/25 13:43 IMPRESSION: No metallic foreign body. EXAMINATION: XR ABDOMEN KUB CLINICAL INDICATION: pre MRI COMPARISON: None available. TECHNIQUE: AP view of the abdomen. FINDINGS: No metallic foreign body. No intestinal bowel obstruction. Multilevel thoracolumbar spondylosis. S-shaped curvature with a levoconvex curvature in the lower lumbar spine. Degenerative changes in the coxofemoral joints. IMPRESSION: No metallic foreign body. Electronically signed by: Patrick Fulton MD 10/10/2025 01:55 PM EST RP Abdomen X-Ray 10/10/25 13:46 IMPRESSION: No metallic foreign body. EXAMINATION: XR ABDOMEN KUB CLINICAL INDICATION: pre MRI COMPARISON: None available. TECHNIQUE: AP view of the abdomen. FINDINGS: No metallic foreign body. No intestinal bowel obstruction. Multilevel thoracolumbar spondylosis. S-shaped curvature with a levoconvex curvature in the lower lumbar spine. Degenerative changes in the coxofemoral joints. IMPRESSION: No metallic foreign body. Electronically signed by: Patrick Fulton MD 10/10/2025 01:55 PM EST RP Brain MRI 10/11/25 13:08 IMPRESSION: 1. No evidence of intracranial hemorrhage, acute infarction, mass effect, or edema. 2. Mild to moderate white matter changes of small vessel ischemia. 3. 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 4. Moderate right maxillary sinus disease. 5. Neuro-quantitative analysis as described above. Please refer to the full neuro-quantitative analysis worksheets attached to this examination for further details. Electronically signed by: Neptali Purcell MD 10/11/2025 03:24 PM EST RP Medications Medications Current Medications Acetaminophen (Acetaminophen 325 Mg Tablet) 650 mg PO Q6H PRN PRN Reason: Headache/Pain, Scale 1-10 Last Admin: 10/12/25 09:52 Dose: 650 mg Al Hydroxide/Mg Hydroxide (Magnesium Hydrox/Alum Hydrox 30 Ml Oral.Susp) 30 ml PO Q6H PRN PRN Reason: Heartburn/Nausea Cyanocobalamin (Cyanocobalamin (Vitamin B-12) 1,000 Mcg Tablet) 1,000 mcg PO DAILY [facility] Last Admin: 10/20/25 08:58 Dose: 1,000 mcg Donepezil HCl (Donepezil Hcl 5 Mg Tablet) 5 mg PO BEDTIME [facility] Last Admin: 10/19/25 20:08 Dose: 5 mg Lisinopril (Lisinopril 20 Mg Tablet) 20 mg PO DAILY [facility]; Protocol Last Admin: 10/20/25 08:57 Dose: 20 mg Lorazepam (Lorazepam 0.5 Mg Tablet) 0.5 mg PO Q8H PRN PRN Reason: Anxiety/RESTLESSNESS Lorazepam (Lorazepam 0.5 Mg Tablet) 0.5 mg PO BID [facility] Last Admin: 10/20/25 08:58 Dose: 0.5 mg Magnesium Hydroxide (Milk Of Magnesia 30 Ml Oral.Susp) 30 ml PO DAILY PRN PRN Reason: Constipation Metoprolol Succinate (Metoprolol Succinate Er 25 Mg Tab.Er.24h) 25 mg PO DAILY [facility]; Protocol Last Admin: 10/20/25 08:57 Dose: 25 mg Mirtazapine (Mirtazapine 7.5 Mg Tablet) 22.5 mg PO BEDTIME [facility] Last Admin: 10/19/25 20:08 Dose: 22.5 mg Risperidone (Risperidone 2 Mg Tablet) 2 mg PO BEDTIME [facility] Last Admin: 10/19/25 20:08 Dose: 2 mg Sertraline HCl (Sertraline Hcl 50 Mg Tablet) 150 mg PO DAILY [facility] Last Admin: 10/20/25 08:58 Dose: 150 mg Allergies Allergies Allergy/AdvReac Type Severity Reaction Status Date / Time No Known Allergies Allergy Verified 10/02/25 12:16 Assessment & Plan Assessment & Plan (1) MDD (major depressive disorder), recurrent, severe, with psychosis: Status: Acute Code(s): F33.3 - Major depressive disorder, recurrent, severe with psychotic symptoms Assessment and Plan: SSRI recently adjusted add Risperdal, risks/benefits/side effects/alternatives discussed with patient/family and determination made to start and titrate 10/06 Increase Sertraline, Remeron, Risperdal titration 10/09 Ativan ordered as PRN not taken Add scheduled Ativan to acutely manage level of anxiety Adjust Risperdal and Mirtazapine Change to 5 monitoring 10/19/2025 Continue Risperdal mirtazapine patient showing clear improvement continue discharge planning and aftercare no complaints of side effects (2) HTN (hypertension): Status: Acute Code(s): I10 - Essential (primary) hypertension (3) Cognitive deficit with impaired psychomotor function: Status: Acute Code(s): R41.89 - Other symptoms and signs involving cognitive functions and awareness; R41.843 - Psychomotor deficit Plan Mr. Yost is a 80 year-old who came to ED due to increase depressed mood, paranoid delusions thinking police was going to shoot him. PLAN 10/05 continue current medications. He has been visible on the unit, still with paranoid ideas although not fully forthcoming. No behavioral concerns.Start risperidone 0.5mg po BID. continue sertraline and remeron 15mg po qhs. Reason for continued inpatient stay Substantial Risk for: inability to function and other (discharge planning) Time Spent With Patient Time: Total time managing care of this patient today ____ minutes.
[2025-10-20 20:00] VITALS: BP 143/65; PULSE 60; RESP 16; TEMP 36.3; O2SAT 98
--- NOTE | 2025-10-21 08:55 | P.PNPSI_ITS ---
Subjective Subjective Date of Service: 10/21/25 Reason For Visit: SI,confusion, inability to function, sever depress Interim History: Patient seen. I'm having a good day today. Denies any concerns. Mood stable. Somewhat guarded. Denies SI. Slept well. Adherent to medications. Calm and cooperative. Diagnostics Vital Signs (24Hr): Vital Signs - 24 hr 10/20/25 08:57 10/20/25 08:57 10/20/25 20:00 Temperature 97.3 F Pulse Rate 60 60 Respiratory Rate 16 Blood Pressure 118/57 L 118/57 L 143/65 H Pulse Oximetry 98 Oxygen Delivery Method Room Air BMI result Body Mass Index 27.7 Labs 10/20/25 07:10 10/19/25 10:55 Labs: Laboratory Results - last 48 hr 10/19/25 10/20/25 10:55 07:10 WBC 7.7 RBC 4.11 L Hgb 13.3 L Hct 39.1 L MCV 95.1 MCH 32.4 MCHC 34.0 RDW 11.3 Plt Count 190 MPV 9.7 Immature Gran % (Auto) 2.3 H Neut % (Auto) 59.0 Lymph % (Auto) 24.2 [place] % (Auto) 11.2 H Eos % (Auto) 2.7 Baso % (Auto) 0.6 Lymph # (Auto) 1.9 [place] # (Auto) 0.9 Eos # (Auto) 0.2 Baso # (Auto) 0.1 Abs Immat Gran (auto) 0.18 H Absolute Neuts (auto) 4.6 Absolute Nucleated RBC 0.000 Nucleated RBC % (auto) 0.0 Sodium 142 Potassium 4.2 Chloride 110 H Carbon Dioxide 28 Anion Gap 8 L BUN 25 H Creatinine 0.84 Estim Creat Clear Calc 73.2 Estimated GFR > 60 Random Glucose 87 Calcium 8.9 Imaging Radiology Impressions: ITS Impressions Head CT 10/02/25 13:43 IMPRESSION: 1. No acute intracranial abnormality. 2. Partial opacification of the right maxillary sinus with likely old post traumatic changes to the posteroinferior sinus haider. Electronically signed by: Neptali Purcell MD 10/02/2025 02:05 PM [facility] Chest X-Ray 10/10/25 13:43 IMPRESSION: No metallic foreign body. EXAMINATION: XR ABDOMEN KUB CLINICAL INDICATION: pre MRI COMPARISON: None available. TECHNIQUE: AP view of the abdomen. FINDINGS: No metallic foreign body. No intestinal bowel obstruction. Multilevel thoracolumbar spondylosis. S-shaped curvature with a levoconvex curvature in the lower lumbar spine. Degenerative changes in the coxofemoral joints. IMPRESSION: No metallic foreign body. Electronically signed by: Patrick Fulton MD 10/10/2025 01:55 PM EST RP Abdomen X-Ray 10/10/25 13:46 IMPRESSION: No metallic foreign body. EXAMINATION: XR ABDOMEN KUB CLINICAL INDICATION: pre MRI COMPARISON: None available. TECHNIQUE: AP view of the abdomen. FINDINGS: No metallic foreign body. No intestinal bowel obstruction. Multilevel thoracolumbar spondylosis. S-shaped curvature with a levoconvex curvature in the lower lumbar spine. Degenerative changes in the coxofemoral joints. IMPRESSION: No metallic foreign body. Electronically signed by: Patrick Fulton MD 10/10/2025 01:55 PM EST RP Brain MRI 10/11/25 13:08 IMPRESSION: 1. No evidence of intracranial hemorrhage, acute infarction, mass effect, or edema. 2. Mild to moderate white matter changes of small vessel ischemia. 3. 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 4. Moderate right maxillary sinus disease. 5. Neuro-quantitative analysis as described above. Please refer to the full neuro-quantitative analysis worksheets attached to this examination for further details. Electronically signed by: Neptali Purcell MD 10/11/2025 03:24 PM EST RP Medications Medications Current Medications Acetaminophen (Acetaminophen 325 Mg Tablet) 650 mg PO Q6H PRN PRN Reason: Headache/Pain, Scale 1-10 Last Admin: 10/12/25 09:52 Dose: 650 mg Al Hydroxide/Mg Hydroxide (Magnesium Hydrox/Alum Hydrox 30 Ml Oral.Susp) 30 ml PO Q6H PRN PRN Reason: Heartburn/Nausea Cyanocobalamin (Cyanocobalamin (Vitamin B-12) 1,000 Mcg Tablet) 1,000 mcg PO DAILY [facility] Last Admin: 10/20/25 08:58 Dose: 1,000 mcg Donepezil HCl (Donepezil Hcl 5 Mg Tablet) 5 mg PO BEDTIME [facility] Last Admin: 10/20/25 20:43 Dose: 5 mg Lisinopril (Lisinopril 20 Mg Tablet) 20 mg PO DAILY [facility]; Protocol Last Admin: 10/20/25 08:57 Dose: 20 mg Lorazepam (Lorazepam 0.5 Mg Tablet) 0.5 mg PO Q8H PRN PRN Reason: Anxiety/RESTLESSNESS Lorazepam (Lorazepam 0.5 Mg Tablet) 0.5 mg PO BID [facility] Last Admin: 10/20/25 20:44 Dose: 0.5 mg Magnesium Hydroxide (Milk Of Magnesia 30 Ml Oral.Susp) 30 ml PO DAILY PRN PRN Reason: Constipation Metoprolol Succinate (Metoprolol Succinate Er 25 Mg Tab.Er.24h) 25 mg PO DAILY [facility]; Protocol Last Admin: 10/20/25 08:57 Dose: 25 mg Mirtazapine (Mirtazapine 7.5 Mg Tablet) 22.5 mg PO BEDTIME [facility] Last Admin: 10/20/25 20:43 Dose: 22.5 mg Risperidone (Risperidone 2 Mg Tablet) 2 mg PO BEDTIME [facility] Last Admin: 10/20/25 20:43 Dose: 2 mg Sertraline HCl (Sertraline Hcl 50 Mg Tablet) 150 mg PO DAILY [facility] Last Admin: 10/20/25 08:58 Dose: 150 mg Allergies Allergies Allergy/AdvReac Type Severity Reaction Status Date / Time No Known Allergies Allergy Verified 10/02/25 12:16 Assessment & Plan Assessment & Plan (1) MDD (major depressive disorder), recurrent, severe, with psychosis: Status: Acute Code(s): F33.3 - Major depressive disorder, recurrent, severe with psychotic symptoms Assessment and Plan: SSRI recently adjusted add Risperdal, risks/benefits/side effects/alternatives discussed with patient/family and determination made to start and titrate 10/06 Increase Sertraline, Remeron, Risperdal titration 10/09 Ativan ordered as PRN not taken Add scheduled Ativan to acutely manage level of anxiety Adjust Risperdal and Mirtazapine Change to 5 monitoring 10/19/2025 Continue Risperdal mirtazapine patient showing clear improvement continue discharge planning and aftercare no complaints of side effects 10/21: Continue current management and treatment plan. (2) HTN (hypertension): Status: Acute Code(s): I10 - Essential (primary) hypertension (3) Cognitive deficit with impaired psychomotor function: Status: Acute Code(s): R41.89 - Other symptoms and signs involving cognitive functions and awareness; R41.843 - Psychomotor deficit Plan Mr. Yost is a 80 year-old who came to ED due to increase depressed mood, paranoid delusions thinking police was going to shoot him. PLAN 10/05 continue current medications. He has been visible on the unit, still with paranoid ideas although not fully forthcoming. No behavioral concerns.Start risperidone 0.5mg po BID. continue sertraline and remeron 15mg po qhs. Reason for continued inpatient stay Substantial Risk for: inability to function and rapid decompensation Time Spent With Patient Time: Total time managing care of this patient today ____ minutes.
[2025-10-21 09:07] VITALS: BP 138/65; PULSE 63; TEMP 35.7; O2SAT 98
[2025-10-21] MEDS: Metoprolol Succinate ER 25 MG TAB.ER.24H PO (09:07)
[2025-10-21 20:00] VITALS: BP 134/60; PULSE 55; RESP 18; TEMP 36.3; O2SAT 97
[2025-10-22 07:51] VITALS: BP 122/62; PULSE 62; RESP 18; TEMP 36.6; O2SAT 98
[2025-10-22] MEDS: Metoprolol Succinate ER 25 MG TAB.ER.24H PO (08:21)
--- NOTE | 2025-10-22 10:14 | P.PNPSI_ITS ---
Subjective Subjective Date of Service: 10/22/25 Reason For Visit: SI,confusion, inability to function, sever depress Interim History: Patient seen. Reports feeling well. Feels his thoughts and paranoia have cleared. Doesn't feel police are following him. He additionally volunteers his memory feels improved. Tolerating medications well. Denies SI. Denies hallucinations. Mood stable. Slept well. Adherent to medications. Calm and cooperative. Diagnostics Vital Signs (24Hr): Vital Signs - 24 hr 10/21/25 20:00 10/22/25 07:51 Temperature 97.3 F 97.8 F Pulse Rate 55 62 Respiratory Rate 18 18 Blood Pressure 134/60 122/62 Pulse Oximetry 97 98 Oxygen Delivery Method Room Air Room Air BMI result Body Mass Index 27.7 Labs 10/20/25 07:10 10/19/25 10:55 Labs: Laboratory Results - last 48 hr 10/19/25 10/20/25 10:55 07:10 WBC 7.7 RBC 4.11 L Hgb 13.3 L Hct 39.1 L MCV 95.1 MCH 32.4 MCHC 34.0 RDW 11.3 Plt Count 190 MPV 9.7 Immature Gran % (Auto) 2.3 H Neut % (Auto) 59.0 Lymph % (Auto) 24.2 [place] % (Auto) 11.2 H Eos % (Auto) 2.7 Baso % (Auto) 0.6 Lymph # (Auto) 1.9 [place] # (Auto) 0.9 Eos # (Auto) 0.2 Baso # (Auto) 0.1 Abs Immat Gran (auto) 0.18 H Absolute Neuts (auto) 4.6 Absolute Nucleated RBC 0.000 Nucleated RBC % (auto) 0.0 Sodium 142 Potassium 4.2 Chloride 110 H Carbon Dioxide 28 Anion Gap 8 L BUN 25 H Creatinine 0.84 Estim Creat Clear Calc 73.2 Estimated GFR > 60 Random Glucose 87 Calcium 8.9 Imaging Radiology Impressions: ITS Impressions Head CT 10/02/25 13:43 IMPRESSION: 1. No acute intracranial abnormality. 2. Partial opacification of the right maxillary sinus with likely old post traumatic changes to the posteroinferior sinus haider. Electronically signed by: Neptali Purcell MD 10/02/2025 02:05 PM [facility] Chest X-Ray 10/10/25 13:43 IMPRESSION: No metallic foreign body. EXAMINATION: XR ABDOMEN KUB CLINICAL INDICATION: pre MRI COMPARISON: None available. TECHNIQUE: AP view of the abdomen. FINDINGS: No metallic foreign body. No intestinal bowel obstruction. Multilevel thoracolumbar spondylosis. S-shaped curvature with a levoconvex curvature in the lower lumbar spine. Degenerative changes in the coxofemoral joints. IMPRESSION: No metallic foreign body. Electronically signed by: Patrick Fulton MD 10/10/2025 01:55 PM EST RP Abdomen X-Ray 10/10/25 13:46 IMPRESSION: No metallic foreign body. EXAMINATION: XR ABDOMEN KUB CLINICAL INDICATION: pre MRI COMPARISON: None available. TECHNIQUE: AP view of the abdomen. FINDINGS: No metallic foreign body. No intestinal bowel obstruction. Multilevel thoracolumbar spondylosis. S-shaped curvature with a levoconvex curvature in the lower lumbar spine. Degenerative changes in the coxofemoral joints. IMPRESSION: No metallic foreign body. Electronically signed by: Patrick Fulton MD 10/10/2025 01:55 PM EST RP Brain MRI 10/11/25 13:08 IMPRESSION: 1. No evidence of intracranial hemorrhage, acute infarction, mass effect, or edema. 2. Mild to moderate white matter changes of small vessel ischemia. 3. 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 4. Moderate right maxillary sinus disease. 5. Neuro-quantitative analysis as described above. Please refer to the full neuro-quantitative analysis worksheets attached to this examination for further details. Electronically signed by: Neptali Purcell MD 10/11/2025 03:24 PM EST RP Medications Medications Current Medications Acetaminophen (Acetaminophen 325 Mg Tablet) 650 mg PO Q6H PRN PRN Reason: Headache/Pain, Scale 1-10 Last Admin: 10/12/25 09:52 Dose: 650 mg Al Hydroxide/Mg Hydroxide (Magnesium Hydrox/Alum Hydrox 30 Ml Oral.Susp) 30 ml PO Q6H PRN PRN Reason: Heartburn/Nausea Cyanocobalamin (Cyanocobalamin (Vitamin B-12) 1,000 Mcg Tablet) 1,000 mcg PO DAILY LIZ Last Admin: 10/22/25 08:20 Dose: 1,000 mcg Donepezil HCl (Donepezil Hcl 5 Mg Tablet) 5 mg PO BEDTIME LIZ Last Admin: 10/21/25 20:27 Dose: 5 mg Lisinopril (Lisinopril 20 Mg Tablet) 20 mg PO DAILY LIZ; Protocol Last Admin: 10/22/25 08:21 Dose: 20 mg Lorazepam (Lorazepam 0.5 Mg Tablet) 0.5 mg PO Q8H PRN PRN Reason: Anxiety/RESTLESSNESS Lorazepam (Lorazepam 0.5 Mg Tablet) 0.5 mg PO BID LIZ Last Admin: 10/22/25 08:21 Dose: 0.5 mg Magnesium Hydroxide (Milk Of Magnesia 30 Ml Oral.Susp) 30 ml PO DAILY PRN PRN Reason: Constipation Metoprolol Succinate (Metoprolol Succinate Er 25 Mg Tab.Er.24h) 25 mg PO DAILY [facility]; Protocol Last Admin: 10/22/25 08:21 Dose: 25 mg Mirtazapine (Mirtazapine 7.5 Mg Tablet) 22.5 mg PO BEDTIME LIZ Last Admin: 10/21/25 20:27 Dose: 22.5 mg Risperidone (Risperidone 2 Mg Tablet) 2 mg PO BEDTIME LIZ Last Admin: 10/21/25 20:27 Dose: 2 mg Sertraline HCl (Sertraline Hcl 50 Mg Tablet) 150 mg PO DAILY LIZ Last Admin: 10/22/25 08:21 Dose: 150 mg Allergies Allergies Allergy/AdvReac Type Severity Reaction Status Date / Time No Known Allergies Allergy Verified 10/02/25 12:16 Assessment & Plan Assessment & Plan (1) MDD (major depressive disorder), recurrent, severe, with psychosis: Status: Acute Code(s): F33.3 - Major depressive disorder, recurrent, severe with psychotic symptoms Assessment and Plan: SSRI recently adjusted add Risperdal, risks/benefits/side effects/alternatives discussed with patient/family and determination made to start and titrate 10/06 Increase Sertraline, Remeron, Risperdal titration 10/09 Ativan ordered as PRN not taken Add scheduled Ativan to acutely manage level of anxiety Adjust Risperdal and Mirtazapine Change to 5 monitoring 10/19/2025 Continue Risperdal mirtazapine patient showing clear improvement continue discharge planning and aftercare no complaints of side effects 10/21: Continue current management and treatment plan. 10/22: continue current management and treatment plan. (2) HTN (hypertension): Status: Acute Code(s): I10 - Essential (primary) hypertension (3) Cognitive deficit with impaired psychomotor function: Status: Acute Code(s): R41.89 - Other symptoms and signs involving cognitive functions and awareness; R41.843 - Psychomotor deficit Plan Mr. Yost is a 80 year-old who came to ED due to increase depressed mood, paranoid delusions thinking police was going to shoot him. PLAN 10/05 continue current medications. He has been visible on the unit, still with paranoid ideas although not fully forthcoming. No behavioral concerns.Start risperidone 0.5mg po BID. continue sertraline and remeron 15mg po qhs. Reason for continued inpatient stay Substantial Risk for: inability to function and rapid decompensation Time Spent With Patient Time: Total time managing care of this patient today ____ minutes.
[2025-10-22 20:00] VITALS: BP 117/61; PULSE 57; RESP 15; TEMP 36.3; O2SAT 98
[2025-10-22 20:59] LABS: ABETA 42/40 Ratio 0.164 (> OR = 0.170); Alzeheimer's Interpretation Low Likelihood; Tau protein phosphorylated 217 0.15 pg/mL (< OR = 0.15)
[2025-10-23 08:26] VITALS: BP 127/59; PULSE 58; RESP 16; TEMP 36.6; O2SAT 98
[2025-10-23 08:57] VITALS: PULSE 70
[2025-10-23] MEDS: Metoprolol Succinate ER 25 MG TAB.ER.24H PO (08:57)
--- NOTE | 2025-10-23 10:53 | PC.NURSE ---
Dimitry Yost had a heart rate of 58 at 08:26. At 08:57 his heart rate was re-checked prior to giving metoprolol, heart rate was 70. Scheduled metoprolol given.
--- NOTE | 2025-10-23 11:56 | P.DS_ITS ---
DS: Providers Provider Date of admission: 10/03/25 14:51 Date of discharge: 10/23/25 Primary care physician: Obdulia Pace DO Admitting clinician: Antoinette Mercer Attending physician on admission: Antoinette Mercer Attending physician on discharge: Antoinette Mercer Discharging clinician: Antoinette Mercer DS: Diagnosis Discharge Diagnosis (1) MDD (major depressive disorder), recurrent, severe, with psychosis: Status: Acute (2) Neurocognitive disorder: Status: Acute (3) HTN (hypertension): Status: Acute DS: Medications Discharge Medications Home Medications: Previous Rx's ?Medication ?Instructions ?Recorded cyanocobalamin (vitamin B-12) 1,000 mcg PO DAILY #30 t abs 10/23/25 1,000 mcg tablet (Vitamin B-12) donepezil 5 mg tablet 5 mg PO BEDTIME #30 tabs lisinopril 20 mg tablet 20 mg PO DAILY #30 tabs 10/03 12/27 lorazepam 0.5 mg tablet (Ativan) 0.5 mg PO BID #60 tab s 10/23/25 lorazepam 0.5 mg tablet (Ativan) 0.5 mg PO BID #60 tab s 10/23/25 metoprolol succinate 25 mg 25 mg PO DAILY #30 tabs tablet,extended release 24 hr mirtazapine 7.5 mg tablet 22.5 mg (3 x 7.5 mg) PO BEDT SHADY 10/23/25 #90 tabs risperidone 2 mg tablet 2 mg PO BEDTIME #30 tabs sertraline 50 mg tablet 150 mg (3 x 50 mg) PO DAILY #45 10/23/25 tabs Mental Status Exam Mental Status Exam Narrative: Appearance: wearing casual clothing, good hygiene, in NAD Behavior: cooperative, pleasant Memory/cog: alert, oriented to person, place, date; Psychomotor: no agitation or retardation noted Speech: clear, normal rate/rhythm/volume, spontaneous TP: linear TC: future oriented, no delusional content voiced or endorsed, looking forward to spending holiday with family. No hopelessness/ helplessness/worthlessness/gult. Says he is thankful for getting treatment Mood: I'm better Affect: Mildly constricted, reactive, brighter SI: denies active/passive/ wishes HI: denies VH/AH: denies Delusions: none evinced Insight/judgment: Accepts need for treatment understands history of depression and NCS Data Data Completed and Pending Completed studies during hospitalization [Text1]: 10/10/25 10/19/25 10/20/25 12:40 10:55 07:10 WBC 7.7 RBC 4.11 L Hgb 13.3 L Hct 39.1 L MCV 95.1 MCH 32.4 MCHC 34.0 RDW 11.3 Plt Count 190 MPV 9.7 Immature Gran % (Auto) 2.3 H Neut % (Auto) 59.0 Lymph % (Auto) 24.2 [place] % (Auto) 11.2 H Eos % (Auto) 2.7 Baso % (Auto) 0.6 Lymph # (Auto) 1.9 [place] # (Auto) 0.9 Eos # (Auto) 0.2 Baso # (Auto) 0.1 Abs Immat Gran (auto) 0.18 H Absolute Neuts (auto) 4.6 Absolute Nucleated RBC 0.000 Nucleated RBC % (auto) 0.0 Sodium 142 Potassium 4.2 Chloride 110 H Carbon Dioxide 28 Anion Gap 8 L BUN 25 H Creatinine 0.84 Estim Creat Clear Calc 73.2 Estimated GFR > 60 Random Glucose 87 Calcium 8.9 Amyloid Score (APS2) 0.1350 Abeta42/40 Ratio 0.164 L Amyloidosis Interpret Low Likelihood Amyloid Beta 42 Peptide 47 Amyloid Beta 40 Peptide 287 Phosphorylated Tau 217 0.15 Imaging Diagnostic Imaging Impressions Head CT 10/02/25 13:43 IMPRESSION: 1. No acute intracranial abnormality. 2. Partial opacification of the right maxillary sinus with likely old post traumatic changes to the posteroinferior sinus haider. Electronically signed by: Neptali Purcell MD 10/02/2025 02:05 PM [facility] Chest X-Ray 10/10/25 13:43 IMPRESSION: No metallic foreign body. EXAMINATION: XR ABDOMEN KUB CLINICAL INDICATION: pre MRI COMPARISON: None available. TECHNIQUE: AP view of the abdomen. FINDINGS: No metallic foreign body. No intestinal bowel obstruction. Multilevel thoracolumbar spondylosis. S-shaped curvature with a levoconvex curvature in the lower lumbar spine. Degenerative changes in the coxofemoral joints. IMPRESSION: No metallic foreign body. Electronically signed by: Patrick Fulton MD 10/10/2025 01:55 PM EST RP Abdomen X-Ray 10/10/25 13:46 IMPRESSION: No metallic foreign body. EXAMINATION: XR ABDOMEN KUB CLINICAL INDICATION: pre MRI COMPARISON: None available. TECHNIQUE: AP view of the abdomen. FINDINGS: No metallic foreign body. No intestinal bowel obstruction. Multilevel thoracolumbar spondylosis. S-shaped curvature with a levoconvex curvature in the lower lumbar spine. Degenerative changes in the coxofemoral joints. IMPRESSION: No metallic foreign body. Electronically signed by: Patrick Fulton MD 10/10/2025 01:55 PM EST RP Brain MRI 10/11/25 13:08 IMPRESSION: 1. No evidence of intracranial hemorrhage, acute infarction, mass effect, or edema. 2. Mild to moderate white matter changes of small vessel ischemia. 3. 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 4. Moderate right maxillary sinus disease. 5. Neuro-quantitative analysis as described above. Please refer to the full neuro-quantitative analysis worksheets attached to this examination for further details. Electronically signed by: Neptali Purcell MD 10/11/2025 03:24 PM EST RP DS: Summary Hospital Course Hospital Course: 80 yo MWM admitted for severe symptoms of depression, persecutory delusions. anxious ruminations, frightened, poor sleep up at night to protect his home from police, bizarre behaviors amd ideas (about bathrooms exploding if used, house will burn if son fixes fire alarm..). He further believed he repelled others because he smelled bad. reported he refused to go to doctors and had tried to jump off the car on his way to an appointment, and once at the office, he had started screaming to the point schedule testing could not be done. Patient was seen by crisis team and recommended hospitalization. On arrival to S[facility], patient extremely symptomatic, anxious, distraught, fearful and not very forthcoming to the point that much of history came from and son. Patient minimized and/or discounted information, feeling the were overly worried. Once in the unit, medications were adjusted and he was closely monitored. He spend initial nights up, surveilling the unit for people whom he beileved were here for nefarious reasons to hurt him/others. He agreed to medication regime and doses of antidepresants were increased (Sertraline and Remeron), and risperdal was started at low dose to manage delusionsl beliefs. Given patient's degree of anxiety, ruminations, and visible distress, small dose of Ativan was added with good effect. Patient c/o feeling weird and doses were adjusted to minimize side effects and facilitate tolerance. For early part of his stay, patient was withdrawn and seemed fearful of taking medications out of concern he had to stay alert and vigilant to protect himself. He was superficial/vague and only after long conversations he began to acknowledge his symptoms, emotions associated with them and eventually his relief at getting a better understanding of his cognitive/functional decline reflecting symptoms consistent with dementia (mixed) along with a recurrence of MDD severe with psychotic symptoms which he had experienced 7 years ago. Patient further began to process his having experienced SI in the context of severe depressive symptoms, feelings of guilt, worthlessness and hopelessness, and delusional fears, and noticing some declining function. He was open to talking about this feelings. and to psychoeducation about diagnosis and treatment, medication and tx recommendations including alternatives, risks benefits and side effects. By the late part of stay, patient's mood had improved significantly, he was attending to hygiene and grooming on his own, was interactive and noted suicidal thoughts were associated with his depression, not with his perception of decline and he no longer considered them an option for his present and future. Both patient and family ( and son) were updated about patient's status, progress and educated about diagnostic, treatment, prognosis, follow up recommendations. Given recent mental health issues, it was recommended that the guns removed be kept secured by son. They were also instructed to contact providers or crisis/911/go to nearest ED if any emergency or if symptoms increased. It was recommended that patient continue medications as prescribed unless otherwise directed by his outpatient prescriber. At the time of discharge patient was calm, pleasant, in good spirits. He was not having medication side effects, was organized in thinking and behaviors, no longer demonstrating persecutory or other delusional ideas and looking forward toward the future with his family. Symptoms were improved and patient was described as being back to himself by his . Patient's reisk factors and protective factors were assessed. Patient had no history of suicide intent/plns; no history of prior attempts; no access to firearms (removed); anxiety and psychotic symptoms were under control with keyon tment interventions; no substance use do per patient/family; no reported family h/o of or exposure to suicide. He is active, close to and children, has friends and remains active. He has no SI, feelings of hopelessness/helplessness/worthlessness and is motivated to continue treatment in the OP setting. Time spent discussing smoking cessation with patient: more than 10 minutes Status at Discharge Cognitive/behavioral status at discharge: Stable, improved Functional status at discharge: independent ambulation Overall status at discharge: other (near baseline/at baseline) Time Spent with Patient Time attestation: Total time managing care of this patient today ____ minutes. Time spent: Greater than 30 minutes Discharge Plan Discharge Anticipated Discharge Date/Time: 10/23/25 09:08 Patient Disposition: Home, Self-Care Discharge Diagnosis: MDD with psychotic symptoms; Major neurocognitive d/o, mild Referrals: Dr Tierney [facility] [Other] - 11/07/25 12:00 pm Referral Note: YOur next appointment with Dr Tierney is scheduled for 11/03/25 at 11am. [facility] [Other] - 10/23/25 Referral Note: Referral was placed for geraitric care management. CLARENCE Mascorro will contact you following discharge. [facility] [Other] - 3-5 Days Referral Note: Referral placed and someone from day program will contact you to discuss program and cost. Obdulia Pace DO [Primary Care Provider, Family Practice] - 11/03/25 10:00 am Referral Note: Your next appointment with your PCP is scheduled for 11/03/25 at 10AM. Discharge Medications: New donepezil 5 mg Tablet 5 mg PO BEDTIME Qty: 30 0RF lisinopril 20 mg Tablet 20 mg PO DAILY Qty: 30 0RF Protocol: Hold for SBP< HOLD for SBP < : 90 cyanocobalamin (vitamin B-12) [Vitamin B-12] 1,000 mcg Tablet 1,000 mcg PO DAILY Qty: 30 0RF risperidone 2 mg Tablet 2 mg PO BEDTIME Qty: 30 0RF metoprolol succinate 25 mg Tablet Extended Release 24 Hr 25 mg PO DAILY Qty: 30 0RF Protocol: Hold for SBP/HR < HOLD for SBP < : 90 HOLD for HR < : 60 sertraline 50 mg Tablet 150 mg PO DAILY Qty: 45 0RF mirtazapine 7.5 mg Tablet 22.5 mg PO BEDTIME Qty: 90 0RF lorazepam [Ativan] 0.5 mg tablet 0.5 mg PO BID Qty: 60 0RF lorazepam [Ativan] 0.5 mg tablet 0.5 mg PO BID Qty: 60 0RF Discontinued lisinopril 20 mg tablet 20 mg PO DAILY sertraline 100 mg tablet 100 mg PO DAILY cyanocobalamin (vitamin B-12) 1,000 mcg Tablet, Sublingual 1,000 mcg SUBLINGUAL DAILY mirtazapine 15 mg tablet 15 mg PO BEDTIME metoprolol succinate 25 mg tablet extended release 24 hr 25 mg PO DAILY Discharge Orders: Discharge Order (Routine); Ordered 10/23/25 Ordered By: Antoinette Mercer Activity on Discharge: As tolerated Stand Alone Forms: Patient Portal Discharge page, Community Support Print Language: Setswana Care Plan Goals: Maintain mood and safe behaviors Take medication as prescribed Continue treatment with outpatient providers Reach out to outpatient providers as needed Call crisis or 911 for emergency Do not keep firearms at home Health Concerns: Depressive, and anxiety symptoms Behavioral changes Plan of Treatment: F/U with PCP, sychiatric provider and other outpatient providers Meet and stay in touch with community services coordinator Assessment: Calm pleasant in NAD, brighter mood and affect, no SI/HI/plan or intent. No delusions or hallucinations. Future oriented, moptimistic, no longer thinks or would consider idea of self harm or suicide. Sleep has improved. Better self care and grooming. No disorganized or bizarre thinking or behavior Discharge Date/Time: 10/23/25 11:43
--- NOTE | 2025-10-23 14:29 | PM.PSYDC ---
DS: Providers Provider Date of admission: 10/03/25 14:51 Date of discharge: 10/23/25 Primary care physician: Obdulia Pace DO DS: Diagnosis Discharge Diagnosis (1) MDD (major depressive disorder), recurrent, severe, with psychosis: Status: Acute (2) HTN (hypertension): Status: Acute DS: Medications Discharge Medications Home Medications: Previous Rx's ?Medication ?Instructions ?Recorded cyanocobalamin (vitamin B-12) 1,000 mcg PO DAILY #30 tabs 10/23/25 1,000 mcg tablet (Vitamin B-12) donepezil 5 mg tablet 5 mg PO BEDTIME #30 tabs 10/23/25 lisinopril 20 mg tablet 20 mg PO DAILY #30 tabs 10/23/25 lorazepam 0.5 mg tablet (Ativan) 0.5 mg PO BID #60 tabs 10/23/25 lorazepam 0.5 mg tablet (Ativan) 0.5 mg PO BID #60 tabs 10/23/25 metoprolol succinate 25 mg 25 mg PO DAILY #30 tabs 10/23/25 tablet,extended release 24 hr mirtazapine 7.5 mg tablet 22.5 mg (3 x 7.5 mg) PO BEDTIME 10/23/25 #90 tabs risperidone 2 mg tablet 2 mg PO BEDTIME #30 tabs 10/23/25 sertraline 50 mg tablet 150 mg (3 x 50 mg) PO DAILY #45 10/23/25 tabs Mental Status Exam Mental Status Exam Narrative: Awake, alert, calm No abnormal movements appropriate hygiene and groomin mood good stable affect, denies depressed mood/anhedonia Thinking: goal directed, no delusions, future oriented No SI (passive/active/contingent on future events) No suicide plan/intent/urges No HI/ Hallucinations denies Cognition/orientation: AAOx3, slowing/some difficulty word finding/memory I/J fair Data Data Completed and Pending Completed studies during hospitalization [Text1]: 10/10/25 10/19/25 10/20/25 12:40 10:55 07:10 WBC 7.7 RBC 4.11 L Hgb 13.3 L Hct 39.1 L MCV 95.1 MCH 32.4 MCHC 34.0 RDW 11.3 Plt Count 190 MPV 9.7 Immature Gran % (Auto) 2.3 H Neut % (Auto) 59.0 Lymph % (Auto) 24.2 Johnson % (Auto) 11.2 H Eos % (Auto) 2.7 Baso % (Auto) 0.6 Lymph # (Auto) 1.9 Johnson # (Auto) 0.9 Eos # (Auto) 0.2 Baso # (Auto) 0.1 Abs Immat Gran (auto) 0.18 H Absolute Neuts (auto) 4.6 Absolute Nucleated RBC 0.000 Nucleated RBC % (auto) 0.0 Sodium 142 Potassium 4.2 Chloride 110 H Carbon Dioxide 28 Anion Gap 8 L BUN 25 H Creatinine 0.84 Estim Creat Clear Calc 73.2 Estimated GFR > 60 Random Glucose 87 Calcium 8.9 Amyloid Score (APS2) 0.1350 Abeta42/40 Ratio 0.164 L Amyloidosis Interpret Low Likelihood Amyloid Beta 42 Peptide 47 Amyloid Beta 40 Peptide 287 Phosphorylated Tau 217 0.15 Imaging Diagnostic Imaging Impressions Head CT 10/02/25 13:43 IMPRESSION: 1. No acute intracranial abnormality. 2. Partial opacification of the right maxillary sinus with likely old post traumatic changes to the posteroinferior sinus haider. Electronically signed by: Neptali Purcell MD 10/02/2025 02:05 PM EST RP Chest X-Ray 10/10/25 13:43 IMPRESSION: No metallic foreign body. EXAMINATION: XR ABDOMEN KUB CLINICAL INDICATION: pre MRI COMPARISON: None available. TECHNIQUE: AP view of the abdomen. FINDINGS: No metallic foreign body. No intestinal bowel obstruction. Multilevel thoracolumbar spondylosis. S-shaped curvature with a levoconvex curvature in the lower lumbar spine. Degenerative changes in the coxofemoral joints. IMPRESSION: No metallic foreign body. Electronically signed by: Patrick Fulton MD 10/10/2025 01:55 PM EST RP Abdomen X-Ray 10/10/25 13:46 IMPRESSION: No metallic foreign body. EXAMINATION: XR ABDOMEN KUB CLINICAL INDICATION: pre MRI COMPARISON: None available. TECHNIQUE: AP view of the abdomen. FINDINGS: No metallic foreign body. No intestinal bowel obstruction. Multilevel thoracolumbar spondylosis. S-shaped curvature with a levoconvex curvature in the lower lumbar spine. Degenerative changes in the coxofemoral joints. IMPRESSION: No metallic foreign body. Electronically signed by: Patrick Fulton MD 10/10/2025 01:55 PM EST RP Brain MRI 10/11/25 13:08 IMPRESSION: 1. No evidence of intracranial hemorrhage, acute infarction, mass effect, or edema. 2. Mild to moderate white matter changes of small vessel ischemia. 3. 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 4. Moderate right maxillary sinus disease. 5. Neuro-quantitative analysis as described above. Please refer to the full neuro-quantitative analysis worksheets attached to this examination for further details. Electronically signed by: Neptali Purcell MD 10/11/2025 03:24 PM EST RP DS: Summary Hospital Course Hospital Course: 80 yo MWM admitted for severe symptoms of depression, persecutory delusions. anxious ruminations, frightened, poor sleep up at night to protect his home from police, bizarre behaviors amd ideas (about bathrooms exploding if used, house will burn if son fixes fire alarm..). He further believed he repelled others because he smelled bad. reported he refused to go to doctors and had tried to jump off the car on his way to an appointment, and once at the office, he had started screaming to the point schedule testing could not be done. Patient was seen by crisis team and recommended hospitalization. On arrival to [facility], patient extremely symptomatic, anxious, distraught, fearful and not very forthcoming to the point that much of history came from and son. Patient minimized and/or discounted information, feeling the were overly worried. Once in the unit, medications were adjusted and he was closely monitored. He spend initial nights up, surveilling the unit for people whom he beileved were here for nefarious reasons to hurt him/others. He agreed to medication regime and doses of antidepresants were increased (Sertraline and Remeron), and risperdal was started at low dose to manage delusionsl beliefs. Given patient's degree of anxiety, ruminations, and visible distress, small dose of Ativan was added with good effect. Patient c/o feeling weird and doses were adjusted to minimize side effects and facilitate tolerance. For early part of his stay, patient was withdrawn and seemed fearful of taking medications out of concern he had to stay alert and vigilant to protect himself. He was superficial/vague and only after long conversations he began to acknowledge his symptoms, emotions associated with them and eventually his relief at getting a better understanding of his cognitive/functional decline reflecting symptoms consistent with dementia (mixed) along with a recurrence of MDD severe with psychotic symptoms which he had experienced 7 years ago. Patient further began to process his having experienced SI in the context of severe depressive symptoms, feelings of guilt, worthlessness and hopelessness, and delusional fears, and noticing some declining function. He was open to talking about this feelings. and to psychoeducation about diagnosis and treatment, medication and tx recommendations including alternatives, risks benefits and side effects. By the late part of stay, patient's mood had improved significantly, he was attending to hygiene and grooming on his own, was interactive and noted suicidal thoughts were associated with his depression, not with his perception of decline and he no longer considered them an option for his present and future. Both patient and family ( and son) were updated about patient's status, progress and educated about diagnostic, treatment, prognosis, follow up recommendations. Given recent mental health issues, it was recommended that the guns removed be kept secured by son. They were also instructed to contact providers or crisis/911/go to nearest ED if any emergency or if symptoms increased. It was recommended that patient continue medications as prescribed unless otherwise directed by his outpatient prescriber. At the time of discharge patient was calm, pleasant, in good spirits. He was not having medication side effects, was organized in thinking and behaviors, no longer demonstrating persecutory or other delusional ideas and looking forward toward the future with his family. Symptoms were improved and patient was described as being back to himself by his . Patient's reisk factors and protective factors were assessed. Patient had no history of suicide intent/plns; no history of prior attempts; no access to firearms (removed); anxiety and psychotic symptoms were under control with traetment interventions; no substance use do per patient/family; no reported family h/o of or exposure to suicide. He is active, close to and children, has friends and remains active. He has no SI, feelings of hopelessness/helplessness/worthlessness and is motivated to continue treatment in the OP setting. Time spent discussing smoking cessation with patient: 3 to 10 minutes Status at Discharge Functional status at discharge: independent ambulation Overall status at discharge: patient is back to baseline Time Spent with Patient Time attestation: Total time managing care of this patient today ____ minutes. Time spent: Greater than 30 minutes Discharge Plan Discharge Anticipated Discharge Date/Time: 10/23/25 09:08 Patient Disposition: Home, Self-Care Discharge Diagnosis: MDD with psychotic symptoms; Major neurocognitive d/o, mild Referrals: Dr Tierney [facility] [Other] - 11/07/25 12:00 pm Referral Note: YOur next appointment with Dr Tierney is scheduled for 11/03/25 at 11am. [facility] [Other] - 10/23/25 Referral Note: Referral was placed for geraitric care management. CLARENCE Mascorro will contact you following discharge. [facility] [Other] - 3-5 Days Referral Note: Referral placed and someone from day program will contact you to discuss program and cost. Obdulia Pace DO [Primary Care Provider, Family Practice] - 11/03/25 10:00 am Referral Note: Your next appointment with your PCP is scheduled for 11/03/25 at 10AM. Discharge Medications: New donepezil 5 mg Tablet 5 mg PO BEDTIME Qty: 30 0RF lisinopril 20 mg Tablet 20 mg PO DAILY Qty: 30 0RF Protocol: Hold for SBP< HOLD for SBP < : 90 cyanocobalamin (vitamin B-12) [Vitamin B-12] 1,000 mcg Tablet 1,000 mcg PO DAILY Qty: 30 0RF risperidone 2 mg Tablet 2 mg PO BEDTIME Qty: 30 0RF metoprolol succinate 25 mg Tablet Extended Release 24 Hr 25 mg PO DAILY Qty: 30 0RF Protocol: Hold for SBP/HR < HOLD for SBP < : 90 HOLD for HR < : 60 sertraline 50 mg Tablet 150 mg PO DAILY Qty: 45 0RF mirtazapine 7.5 mg Tablet 22.5 mg PO BEDTIME Qty: 90 0RF lorazepam [Ativan] 0.5 mg tablet 0.5 mg PO BID Qty: 60 0RF lorazepam [Ativan] 0.5 mg tablet 0.5 mg PO BID Qty: 60 0RF Discontinued lisinopril 20 mg tablet 20 mg PO DAILY sertraline 100 mg tablet 100 mg PO DAILY cyanocobalamin (vitamin B-12) 1,000 mcg Tablet, Sublingual 1,000 mcg SUBLINGUAL DAILY mirtazapine 15 mg tablet 15 mg PO BEDTIME metoprolol succinate 25 mg tablet extended release 24 hr 25 mg PO DAILY Discharge Orders: Discharge Order (Routine); Ordered 10/23/25 Ordered By: Antoinette Mercer Activity on Discharge: As tolerated Stand Alone Forms: Patient Portal Discharge page, Community Support Print Language: Portuguese Care Plan Goals: Maintain mood and safe behaviors Take medication as prescribed Continue treatment with outpatient providers Reach out to outpatient providers as needed Call crisis or 911 for emergency Do not keep firearms at home Health Concerns: Depressive, and anxiety symptoms Behavioral changes Plan of Treatment: F/U with PCP, sychiatric provider and other outpatient providers Meet and stay in touch with digital community manager Assessment: Calm pleasant in NAD, brighter mood and affect, no SI/HI/plan or intent. No delusions or hallucinations. Future oriented, moptimistic, no longer thinks or would consider idea of self harm or suicide. Sleep has improved. Better self care and grooming. No disorganized or bizarre thinking or behavior Discharge Date/Time: 10/23/25 11:43
== END 2025-10-23 11:43 | disposition home or self-care (01) | DRG 885 ==
LOC: HO.ED 10-03 12:16 → HO.PGERI 10-03 15:39
PROVIDERS: Psychiatry & Neurology Forensic Psychiatry; Admitting Provider Social Worker; Emergency Provider Emergency Medicine; PCP Family Medicine; Visit Provider Social Worker
DX: F33.3 Major depressive disorder, recurrent, severe with psychotic symptoms (principal); R45.851 Suicidal ideations; N40.0 Benign prostatic hyperplasia without lower urinary tract symptoms; I10 Essential (primary) hypertension; F03.A0 Unspecified dementia, mild, without behavioral disturbance, psychotic disturbance, mood disturbance, and anxiety; Z79.899 Other long term (current) drug therapy
CPT/HCPCS: 36415; 70450; 70551; 71045; 74018; 76377; 80048; 80053; 80061; 80307; 81003; 82233; 82234; 82607; 82746; 83036; 84393; 84443; 85025; 93005; 99285; S9485

== ENCOUNTER → 2025-10-02 13:25 | Outpatient (BNV) | payer MEDICARE, BC, SELFPAY | PROVIDERS: Emergency Provider Emergency Medicine; PCP Family Medicine; Visit Provider Radiology Diagnostic Radiology | DX: R41.82 Altered mental status, unspecified (principal); J32.0 Chronic maxillary sinusitis | CPT/HCPCS: 70450 ==

== ENCOUNTER → 2025-10-02 13:46 | Outpatient (BNV) | payer MEDICARE, BC, SELFPAY | PROVIDERS: Admitting Provider Social Worker; Emergency Provider Emergency Medicine; PCP Family Medicine; Visit Provider Internal Medicine | DX: Z13.6 Encounter for screening for cardiovascular disorders (principal) | CPT/HCPCS: 93010 ==

== ENCOUNTER 2025-10-03 14:51 | Outpatient (BNV) | payer MEDICARE, BC, SELFPAY | END 2025-10-10 09:09 | PROVIDERS: Admitting Provider Social Worker; Emergency Provider Emergency Medicine; PCP Family Medicine; Visit Provider Radiology Diagnostic Radiology | DX: Z01.818 Encounter for other preprocedural examination (principal) | CPT/HCPCS: 71045; 74018 ==

== ENCOUNTER 2025-10-03 14:51 | Outpatient (BNV) | payer MEDICARE, BC, SELFPAY | END 2025-10-11 13:08 | PROVIDERS: Admitting Provider Social Worker; Emergency Provider Emergency Medicine; PCP Family Medicine; Visit Provider Radiology Diagnostic Radiology | DX: I67.82 Cerebral ischemia (principal); R90.82 White matter disease, unspecified; J01.00 Acute maxillary sinusitis, unspecified | CPT/HCPCS: 70551 ==

== ENCOUNTER → 2025-10-03 14:51 | Outpatient (BNV) | payer MEDICARE, BC, SELFPAY | PROVIDERS: Admitting Provider Social Worker; Emergency Provider Emergency Medicine; PCP Family Medicine; Visit Provider Psychiatry & Neurology Psychiatry | DX: F33.3 Major depressive disorder, recurrent, severe with psychotic symptoms (principal); I10 Essential (primary) hypertension; R41.89 Other symptoms and signs involving cognitive functions and awareness; R41.843 Psychomotor deficit | CPT/HCPCS: 99232 ==

== ENCOUNTER → 2025-10-03 14:51 | Outpatient (BNV) | payer MEDICARE, BC, SELFPAY | PROVIDERS: Admitting Provider Social Worker; Emergency Provider Emergency Medicine; PCP Family Medicine; Visit Provider Psychiatry & Neurology Forensic Psychiatry | DX: F33.3 Major depressive disorder, recurrent, severe with psychotic symptoms (principal); R41.89 Other symptoms and signs involving cognitive functions and awareness; R41.843 Psychomotor deficit; I10 Essential (primary) hypertension | CPT/HCPCS: 99231; 99232 ==

== ENCOUNTER → 2025-10-03 14:51 | Outpatient (BNV) | payer MEDICARE, BC, SELFPAY | PROVIDERS: Admitting Provider Social Worker; Emergency Provider Emergency Medicine; PCP Family Medicine; Visit Provider Nurse Practitioner Family | DX: I10 Essential (primary) hypertension (principal) | CPT/HCPCS: 99221; 99231 ==